=== PATIENT | male | born 1955 | race Caucasian/White ===

== ENCOUNTER 2020-05-29 06:37 | Outpatient (CLI) | payer MEDICARE, SELFPAY ==
--- NOTE | ~2020-05-29 | CT_ITS ---
EXAMINATION: CTA chest EXAM DATE: 05/29/2020 07:27 INDICATION: Ascending aortic aneurysm. TECHNIQUE: Spiral CT of the chest following intravenous injection of 100 mL Omnipaque 350. Axial, co randall and sagittal images were reviewed. Coronal maximum intensity pixel images of chest reviewed. M aximum intensity projection 3-D reconstructions of the aorta were created by the technologist on [employer] ([employer] workstation. The dose-length product (DLP) for this examination was 647.85 mGy-cm. The exposu re was tailored according to patient size (auto mA exposure control), and iterative reconstruction (A SIR) was used as additional dose reduction technique. There is no prior study for comparison. FINDINGS: The aortic root measures 4.1 cm dimension. The ascending aorta measures up to 4.6 cm in AP dimension. This caliber normalizes along the aortic arch. No central pulmonary emboli. There are some scattered ill-defined regions of groundglass density, mostly dependent regions. Could be atelectasis but differential diagnosis includes edema, infection (would be atypical distribution f or COVID 19) or hemorrhage if acute. It can also be caused by chronic processes such as hypersensiti vity pneumonitis, nonspecific interstitial pneumonitis (NSIP), cryptogenic organized pneumonia, desqu amative interstitial pneumonitis(DIP). There are no pleural or pericardial effusions. Tracheobronchial tree is patent. Right hilar lymph node or conglomerate of nodes measuring 1 x 2 cm, mildly enlarged. There is no pneumothorax. Hear t normal in size. There is mild coronary arterial calcification, arterial sclerosis. There are some upper abdominal mesenteric lymph nodes which are upper limits of normal in size, but m ildly enlarged for location. One of these measures 1.3 x 0.7 cm. Bon mesentery appearance as well. Surgical changes along the greater curvature of the stomach. There are cholecystectomy clips. There is thoracic spondylosis without osteoblastic or osteolytic lesions identified. IMPRESSION: 1. Scattered peripheral groundglass opacities, nonspecific pneumonitis. Can't exclude COVID pneumoni a. 2. Mild right hilar lymphadenopathy, could be reactive. 3. Prominent mesenteric lymph nodes and bon mesentery appearance. Could be reactive from mesenteri c adenitis. Carcinoid or lymphoma not excludable. These are incompletely imaged, consider CT abdomen pelvis. 4. Ascending aortic 4.6 cm aneurysm. Reviewed, dictated and finalized at location A. IMPRESSION: 1. Scattered peripheral groundglass opacities, nonspecific pneumonitis. Can't exclude COVID pneumonia. 2. Mild right hilar lymphadenopathy, could be reactive. 3. Prominent mesenteric lymph nodes and bon mesentery appearance. Could be r eactive from mesenteric adenitis. Carcinoid or lymphoma not excludable. These a re incompletely imaged, consider CT abdomen pelvis. 4. Ascending aortic 4.6 cm aneurysm.
[2020-05-29 07:33] LABS: Estimated Glomerular Filt Rate > 60
== END 2020-05-29 06:38 | disposition home or self-care (01) ==
PROVIDERS: PCP Family Medicine; Visit Provider Internal Medicine Cardiovascular Disease
DX: I77.810 Thoracic aortic ectasia (principal); I35.1 Nonrheumatic aortic (valve) insufficiency; R91.8 Other nonspecific abnormal finding of lung field
CPT/HCPCS: 71275; Q9967

== ENCOUNTER → 2020-05-30 08:19 | Outpatient (CLI) | payer MEDICARE, SELFPAY ==
[2020-05-30 17:14] LABS: SARS-CoV-2 RNA PCR Positive
== END ==
PROVIDERS: PCP Family Medicine; Visit Provider Physician Assistant
DX: Z20.822 Contact with and (suspected) exposure to COVID-19 (principal); R93.89 Abnormal findings on diagnostic imaging of other specified body structures
CPT/HCPCS: C9803; U0003; U0005

== ENCOUNTER 2020-07-12 14:53 | Outpatient (CLI) | payer MEDICARE, SELFPAY ==
--- NOTE | ~2020-07-12 | XR_ITS ---
XR chest 2V 07/12/2020 15:13 Indication: Wheezing and cough Procedure: 2 view chest Comparison: 06/12/2012 Findings: There is left basilar infiltrates. There is peribronchial thickening. No significant pleura l effusion or pneumothorax. No acute osseous abnormality. Impression: 1: Left basilar infiltrates, atelectasis versus pneumonia. Reviewed, dictated and finalized at location B. Impression: 1: Left basilar infiltrates, atelectasis versus pneumonia.
== END 2020-07-12 14:54 | disposition home or self-care (01) ==
PROVIDERS: PCP Family Medicine; Visit Provider Physician Assistant
DX: R05 Cough (principal); U07.1 COVID-19; J12.82 Pneumonia due to coronavirus disease 2019; R91.8 Other nonspecific abnormal finding of lung field
CPT/HCPCS: 71046

== ENCOUNTER → 2020-08-09 11:43 | Outpatient (CLI) | payer MEDICARE, SELFPAY ==
--- NOTE | ~2020-08-09 | CT_ITS ---
EXAMINATION: CT diagnostic chest wo con DATE: 08/09/2020 11:56 INDICATION: Previous pneumonia. Dyspnea. Hypoxia. TECHNIQUE: Computed tomography (CT) of the chest was performed without intravenous contrast. The dose -length product was 565.58 mGy-cm. Automated exposure control and iterative reconstruction technique were employed. COMPARISON: CT dated 05/29/2020 FINDINGS: Heart size normal. No significant pleural or pericardial effusion. There are changes of gas tric bypass surgery. No thoracic lymphadenopathy. There are residual focal groundglass opacities in t he right upper lobe. There has been resolution of additional areas of patchy groundglass opacificatio n since prior study. No endobronchial lesions. There is a calcified granuloma right upper lobe. Ascen ding thoracic aortic aneurysm measures 4.5 cm, unchanged allowing for differences of technique. IMPRESSION: 1. Residual groundglass opacification right upper lobe. An additional areas of groundglass opacificat ion have resolved. Findings Compatible with resolving pneumonia. 2: Stable ascending thoracic aortic aneurysm measuring 4.5 cm. Reviewed, dictated and finalized at location A. IMPRESSION: 1. Residual groundglass opacification right upper lobe. An additional areas of groundglass opacification have resolved. Findings Compatible with resolving pne umonia. 2: Stable ascending thoracic aortic aneurysm measuring 4.5 cm.
== END ==
PROVIDERS: PCP Family Medicine; Visit Provider Physician Assistant
DX: R09.02 Hypoxemia (principal); B94.8 Sequelae of other specified infectious and parasitic diseases; R91.8 Other nonspecific abnormal finding of lung field
CPT/HCPCS: 71250

== ENCOUNTER 2020-09-13 07:58 | Outpatient (CLI) | payer MEDICARE, SELFPAY ==
--- NOTE | 2020-09-13 12:11 | WPDPFTINT ---
PFT Procedure Performed PFT Procedure Performed Spirometry with Pre/Post Bronchodilator Plethysmography (Lung Vol) Flow Vol Loop PFT Interpretation This is a pulmonary function test with pre and post-bronchodilator spirometry and plethysmography. The test was performed and results interpreted in accordance with the 2019 and 2005 ATS/ERS Task Force guidelines respectively using the Global Lung Function Initiative-2012 reference equations. Patient demonstrated good effort and cooperation. Reproducibility criteria were met. The quality of the pre bronchodilator spirometry maneuver was Grade A and post bronchodilator spirometry maneuver was Grade A. Of note, despite for attempts the DLCO results were not reducible reproducible or acceptable. Findings: Spirometry: the contour the inspiratory and expiratory flow tracing are normal. The pre bronchodilator FVC is 3.73 L, 94% predicted. The pre bronchodilator FEV1 is 2.83 L, 93% predicted. The FEV1: FVC ratio is 76%. The post bronchodilator FVC is 3.87 L, representing a 4% increase. The post bronchodilator FEV1 is 2.99 L, representing a 6% increase. Plethysmography: The total lung capacity is 6.72 L, 105% predicted. Functional residual capacity is 2.40 L, 72% predicted. The residual volume is 2.27 L, 103% predicted. Impression: The spirometry is normal without evidence of an obstructive abnormality. There is no significant improvement after inhaling a single dose of albuterol. The lung volumes are normal. There are no prior studies for comparison
== END 2020-09-13 07:59 | disposition home or self-care (01) ==
LOC: ANHPFT 07:59
PROVIDERS: PCP Family Medicine; Visit Provider Nurse Practitioner Family
DX: R06.00 Dyspnea, unspecified (principal)
CPT/HCPCS: 94060; 94726

== ENCOUNTER → 2020-10-11 13:25 | Outpatient (CLI) | payer MEDICARE, SELFPAY ==
--- NOTE | ~2020-10-11 | US_ITS ---
EXAMINATION: US soft tissue UE LT EXAM DATE: 10/11/2020 13:51 INDICATION: Forearm lump for couple of months. Painful. TECHNIQUE: Multiple grayscale and Doppler images of the symptomatic left forearm region were obtained (by a technologist who performed the scan) and subsequently reviewed. There is no prior study for c omparison. FINDINGS: Scanning in the area of patient's concern demonstrated normal subcutaneous fat and musculature to the radius and ulna. Cannot identify any focal mass, fluid or other abnormality. IMPRESSION: 1. Unremarkable left forearm ultrasound. Reviewed, dictated and finalized at location B.
== END ==
PROVIDERS: PCP Family Medicine; Visit Provider Family Medicine
DX: M79.89 Other specified soft tissue disorders (principal)
CPT/HCPCS: 76882

== ENCOUNTER 2020-12-06 07:23 | Outpatient (CLI) | payer MEDICARE, SELFPAY ==
--- NOTE | ~2020-12-06 | MR_ITS ---
EXAMINATION: MR knee LT wo con DATE: 12/06/2020 08:22 INDICATION: Left knee pain. TECHNIQUE: Magnetic resonance imaging (MRI) of the left knee was performed without intravenous contra st. Sequences included axial PD-weighted FS FSE, coronal PD-weighted FSE and PD-weighted FS FSE, sagi ttal PD-weighted FSE, and sagittal T2-weighted FS FSE. COMPARISON: None. FINDINGS: Medial compartment: There is a vertical tear of posterior horn of medial meniscus. There is shallow partial-thickness car tilage loss of tibial condyle. There is extensive partial thickness cartilage loss of femoral condyle , deep at the central and posterior articular surface with moderate subchondral edema-like marrow sig nal intensity. Lateral compartment: Lateral meniscus is normal. There is cartilage surface irregularity of tibial condyle and femoral con dyle. Patellofemoral compartment: There is deep cartilage fissuring of patellar medial facet. There is deep partial thickness cartilage loss of medial trochlea. Ligaments and tendons: The anterior and posterior cruciate ligaments are normal. Medial collateral ligament and lateral cassandra ateral ligament complex are normal. There is mild patellar tendinopathy. Fluid: There is a small knee joint effusion. IMPRESSION: 1. Moderate chondrosis of medial and patellofemoral compartments and mild chondrosis of lateral charmaine rtment. 2. Tear of medial meniscus. 3. Small knee joint effusion. Reviewed, dictated and finalized at location A. IMPRESSION: 1. Moderate chondrosis of medial and patellofemoral compartments and mild chond rosis of lateral compartment. 2. Tear of medial meniscus. 3. Small knee joint effusion.
== END 2020-12-06 07:24 | disposition home or self-care (01) ==
LOC: ANHIMG 07:28
PROVIDERS: PCP Family Medicine; Visit Provider Family Medicine
DX: M25.462 Effusion, left knee (principal); S83.242A Other tear of medial meniscus, current injury, left knee, initial encounter; X58.XXXA Exposure to other specified factors, initial encounter
CPT/HCPCS: 73721

== ENCOUNTER 2020-12-07 01:40 | Day surgery (SDC) | payer MEDICARE, SELFPAY ==
[2020-12-06 15:55] VITALS: BMI 33.2
[2020-12-07] VITALS (10 sets, daily range): BP systolic 103–158; BP diastolic 65–82; PULSE 53–80; RESP 11–22; TEMP 35.9; O2SAT 98–100
--- NOTE | 2020-12-07 | ECHO_ITS ---
Patient Info Name: Romario Emerson Age: 65 years : 1955 Gender: Male Ht: 67 in Wt: 212 lbs BSA: 2.17 m2 HR: 84 bpm Heart Rhythm: Sinus Rhythm Exam Date: 12/07/2020 11:22 AM Exam Location: [facility] Patient Status: Outpatient Admit Date: 12/07/2020 Staff Ordering Physician: Ollie Hirsch MD [employer]add Technician: Flaco Rodas, PINKY, RT Attending Provider: Ollie Hirsch MD Referring Physician: Torrey RICKS; Exam Type: CA echo transesophageal Study Info Indications I35.1 - Nonrheumatic aortic (valve) insufficiency R06.00 - Dyspnea, unspecified Complete two-dimensional, color flow and Doppler transesophageal study is performed. Summary 1. Left ventricular chamber dimension is normal. 2. Visually estimated ejection fraction 50-55%. 3. Left atrial chamber dimension is mildly enlarged. 4. There is mild mitral valve regurgitation. 5. There is mild aortic valve regurgitation. 6. Mild jet of AI directed at the anterior mitral valve leaflet. 7. Very slight fibrotic thickening of the commissure between right coronary and non coronary cusp. 8. Ascending aortic dimension 4.1 cm. Left Ventricle Left ventricular chamber dimension is normal. Left ventricular systolic function is normal with an ejection fraction by Biplane Method of Discs of Empty. Visually estimated ejection fraction 50-55%. Right Ventricle Right ventricular chamber dimension is normal. Left Atria Left atrial chamber dimension is mildly enlarged. Right Atria Right atrial chamber dimension is normal. Aortic Valve The aortic valve is trileaflet. There is mild aortic valve regurgitation. Very slight fibrotic thickening of the commissure between right coronary and non coronary cusp. Mild jet of AI directed at the anterior mitral valve leaflet. Pulmonic Valve The pulmonic valve is normal. Mitral Valve The mitral valve has normal leaflets. There is mild mitral valve regurgitation. Tricuspid Valve The tricuspid valve leaflets are normal. Pericardium/Pleural The pericardium appears normal. Inferior Vena Cava Not well visualized inferior vena cava with Empty collapse upon inspiration consistent with Empty right atrial pressure, Empty. Aorta The aortic root size at the sinus of Valsalva is mildly dilated. The prox ascending aorta size is mildly dilated. Report Signatures
--- NOTE | 2020-12-07 12:22 | P.SEDATION_ITS ---
Moderate Sedation Note-Pt Data Patient Data Diagnosis: Aortic valve regurgitation, ascending aortic enlargement Present Complaint: Fatigue Procedure to be performed/Plan: Transesophageal echocardiogram Allergies Allergy/AdvReac Type Severity Reaction Status Date / Time Penicillins Allergy Mild Rash Verified 12/06/20 16:01 ampicillin Allergy Unknown RASH Verified 12/06/20 16:01 Home Medications Medication Instructions Recorded Confirmed Type losartan 50 mg-hydrochlorothiazide 1 tablet PO DAILY #90 tablet 10/23/20 12/07/20 Rx 12.5 mg tablet metoprolol tartrate 25 mg tablet 12.5 mg PO BID 11/30/20 12/07/20 History atorvastatin 10 mg PO DAILY 12/06/20 12/07/20 History benzonatate [Tessalon Perles] 100 mg PO BID PRN 12/06/20 12/06/20 History ipratropium-albuterol [DuoNeb] 1 ml INHALATION Q6-12H PRN 12/06/20 12/06/20 History Sedation/Anesthesia: No previous sedation/anesthesia problems (including family history). [facility] Past Medical History Medical History Dilated aortic root Eczema Surgical History Surgical History H/O resection of stomach History of rotator cuff surgery Hx of appendectomy Hx of cholecystectomy S/P excision of lipoma S/P lateral meniscal repair Family History Family History Mother , Glaucoma before diagnosed before passing. Glaucoma Other Family history of cardiovascular disease Social History Social History (Updated 11/30/20 @ 07:47 by Payal Pelaez) Social History: Smoking status: Never smoker Second hand tobacco smoke exposure: No Alcohol intake: never Substance use: never Substance use type: does not use Living arrangements: with family Gender identity (if verbalized by the patient): Male Sexual Orientation (if Verbalized by the Patient): Straight or Heterosexual Spiritual care concerns: No Mod Sed Physical Exam Physical Exam Pre Procedural Exam: Normal: Neck, Throat, Airway, Lungs, Heart Size, Heart Rate, Heart Rhythm and Extremities and Variation: Appearance (Overweight white male no apparent distress) Hours since solid foods: 12 Hours since liquid intake: 12 Mallampati Classification: class II Internal Medicine - PN: Obj Da Vital Signs Vital Signs: Vital Signs - 24 hr 12/07/20 11:20 12/07/20 12:00 12/07/20 12:05 Temperature 35.9 C L Pulse Rate 53 L 54 L 56 L Respiratory Rate 16 20 11 L Blood Pressure 121/71 129/75 148/77 H Pulse Oximetry 100 100 100 12/07/20 12:10 12/07/20 12:15 12/07/20 12:20 Temperature Pulse Rate 80 60 60 Respiratory Rate 18 13 15 Blood Pressure 158/79 H 126/67 Pulse Oximetry 100 100 99 ASA Classification/Sedation ASA Classification/Sedation ASA Class: II Emergent: No Risks: Risks, benefits and alternatives explained and patient/family accepted plan for sedation. Patient re-evaluated immediately prior to sedation.
--- NOTE | 2020-12-07 12:23 | WPDCARDPROC ---
Cardiac Cath Procedure Note Date of procedure:: 12/07/20 Performing physician:: Ayush Fonseca MD Indication:: Aortic root enlargement, aortic regurgitation Brief clinical history:: This is a 65-year-old man undergoing CRISTIANO he has been followed in the office by my partner Dr. Hirsch and because of recent symptoms has requested CRISTIANO to ensure the severity of his aortic regurgitation has not increased Procedure Procedure performed:: Transesophageal echocardiogram Sedation/Medication given:: Fentanyl 50 mg Versed 4 mg Case start time 12:03 p.m. Case end time 12:15 p.m. Sedation provided by Lindy Shen RN, trained observer Procedure note:: Patient was brought to the cardiac lab animal technician recovery area in the postabsorptive state placed in the supine position. Or pharyngeal benzocaine was used for topical anesthesia. The bite block was placed in position he was then sedated he using a combination of fentanyl and Versed as detailed above. When the patient was well sedated the CRISTIANO probe was passed into the oropharynx and into the esophagus easily. Multiplane CRISTIANO imaging and Doppler evaluation was carried out as described below the patient then had examination of the descending thoracic aorta aortic arch and ascending aortic measurements. The probe was then withdrawn the patient is recovering from sedation uneventfully there were no apparent complications. Findings:: The left atrium is mildly enlarged. The mitral valve leaflets are normal in appearance. There is a very small amount of central mitral valve regurgitation identified. The left ventricle is of normal dimension and thickness all segments contract properly the global ejection fraction is in the vicinity of 55-60% by visual estimation. The aortic valve is a trileaflet structure with normal appearing leaflets. There is a small jet of aortic regurgitation which appears to arise from the center of the point of coaptation of all 3 leaflets. A narrow jet of AI that appears to be quite mild. In the LVOT it is somewhat eccentric and directed toward the anterior mitral valve leaflet. In no view however does the jet appeared to be more than mild. The ascending aorta is mildly enlarged measured at 4.1 cm. The aortic arch and descending thoracic aorta are normal in dimension. The right-sided chambers are unremarkable in appearance the interatrial septum looks normal. The tricuspid and pulmonic valves look normal. Conclusion:: 1. Anatomically normal appearing aortic valve with mild central aortic valve regurgitation 2. Normal left ventricular size thickness and contractility 3. Trivial to mild mitral regurgitation 4. Ascending aortic dilation at 4.1 cm Ayush Fonseca MD [facility]
--- NOTE | 2020-12-07 14:06 | SUR.PHASEII ---
All discharge instructions reviewed with patient. Patient verbalizes understanding. PIV removed, catheter intact, dressing applied. Patient escorted to vehicle with staff, where he was picked up by his .
== END 2020-12-07 13:50 | disposition home or self-care (01) ==
PROVIDERS: Specialist; PCP Family Medicine; Visit Provider Internal Medicine Cardiovascular Disease
PROC: (CPT 93312; principal; 2020-12-07 11:30)
DX: I35.1 Nonrheumatic aortic (valve) insufficiency (principal); I77.810 Thoracic aortic ectasia; I34.0 Nonrheumatic mitral (valve) insufficiency; R42 Dizziness and giddiness; I10 Essential (primary) hypertension; E78.5 Hyperlipidemia, unspecified; Z98.84 Bariatric surgery status; R06.00 Dyspnea, unspecified; R05 Cough; R60.0 Localized edema; R07.89 Other chest pain; L30.9 Dermatitis, unspecified; Z86.16 Personal history of COVID-19
CPT/HCPCS: 93312; 93320; 93325; J2250; J3010; J7040

== ENCOUNTER → 2021-04-09 08:33 | Outpatient (CLI) | payer MEDICARE, SELFPAY ==
[2021-04-09 19:08] LABS: SARS-CoV-2 RNA PCR Negative
== END ==
PROVIDERS: PCP Family Medicine; Visit Provider Nurse Practitioner Gerontology
DX: R68.89 Other general symptoms and signs (principal); Z20.822 Contact with and (suspected) exposure to COVID-19
CPT/HCPCS: C9803; U0003; U0005

== ENCOUNTER 2021-04-16 08:54 | Outpatient (CLI) | payer MEDICARE, SELFPAY ==
[2021-04-16 10:02] LABS: Basophils Absolute Auto 0.1 K/mm3 (0.0-0.1); Basophils Percent Auto 1.1 % (0.2-1.2); Eosinophils Absolute Auto 0.7 K/mm3 (0-0.3); Immature Granulocyte Absolute 0.03 K/mm3 (0.00-0.031); Immature Granulocyte Percent A 0.5 % (0-0.5); Lymphocytes Absolute Auto 1.59 K/mm3 (0.9-3.2); Lymphocytes Percent Auto 24.4 % (18.3-44.2); Mean Corpuscular HGB Conc 35.6 g/dl (32-36); Mean Corpuscular Hemoglobin 32.6 pg (26-34); Mean Corpuscular Volume 91.6 fl (80-100); Mean Platelet Volume 8.1 fl (7.4-10.4); Monocytes Absolute Auto 0.8 K/mm3 (0.1-0.6); Monocytes Percent Auto 12.4 % (2.6-8.5); Neutrophils Absolute Auto 3.3 K/mm3 (1.3-6.7); Neutrophils Percent Auto 50.6 % (45.5-73.1); Platelet Count Result 230 k/mm3 (150-375); Red Blood Count 4.91 M/mm3 (4.6-6.20); Red Cell Distribution Width 12.9 % (11.5-14.5); White Blood Count 6.5 K/mm3 (4.5-10.0)
[2021-04-16 10:13] LABS: Anion Gap 5 mmol/L (8-16); Blood Urea Nitrogen 23 mg/dL (9-20); Calcium 9.4 mg/dL (8.4-10.2); Carbon Dioxide 30 mmol/L (22-30); Chloride 104 mmol/L (98-107); Estimated Glomerular Filt Rate > 60; Glucose 100 mg/dL (65-110); Potassium 4.2 mmol/L (3.4-5.0); Sodium 139 mmol/L (137-145)
== END 2021-04-16 08:55 | disposition home or self-care (01) ==
LOC: ANHSURGERY 08:58
PROVIDERS: Anesthesiology; PCP Family Medicine; Visit Provider Orthopaedic Surgery
DX: M17.12 Unilateral primary osteoarthritis, left knee (principal); Z79.899 Other long term (current) drug therapy; Z01.818 Encounter for other preprocedural examination
CPT/HCPCS: 36415; 80048; 85025; 86850; 86900; 86901; 87081

== ENCOUNTER 2021-04-29 01:51 | Day surgery (SDC) | payer MEDICARE, SELFPAY ==
--- NOTE | 2021-04-16 09:02 | PC.NURSE ---
Report to the Outpatient Waiting Room, entrance under the green pavilion located off [facility], at time _0830_ on date _04/29/21_. OR Time: _1030_. - You will be asked a series of questions to screen for COVID 19 for your protection. - A mask is required within the hospital. - No visitors are allowed at this time. Preoperative COVID Testing Requirements: NONE Patients may have clear liquids (water, carbonated beverages, clear teas, apple juice) until 3 hours prior to surgery with a maximum of 20 ounces. (0730 AM) - No food from midnight until time of surgery Take the following medications with a SIP of water the morning of surgery: _METOPROLOL__ Medications to discontinue per physician __N/A__ Please no make-up, nail syriac, hairspray, perfume, deodorant, or body powder the day of surgery. No jewelry (including any body piercings) or valuables the day of surgery, leave them at home. Please take a shower or bath the night before, or the morning of, surgery with an antibacterial soap. Wear comfortable, loose fitting clothing. Children are encouraged to wear pajamas. - Jewelry must be removed prior to entering the operating room. Rings and piercings that are not removed may be cut off. - The hospital will not accept responsibility for valuables. - Please leave all valuables, including medications, at home the day of surgery. If you are going home after surgery, a licensed recycling collections driver must drive you home. - NO public transportation without another adult. - We recommend that an adult stay with you for 24 hours following discharge. - We also recommend that you do not drive, make important decision, drink alcoholic beverages, or take any drugs that were not prescribed by your health care provider for at least 24 hours after your discharge time. Follow any additional instructions given to you from DR. VAZQUEZ. Instructions given to ____PT and asked if any additional questions and then verbalized understanding. Patient advised to call surgeon office or pre surgery nurse liaisonGINNY [phone] if any additional questions.
[2021-04-16 09:23] VITALS: BP 132/74; PULSE 66; RESP 20; TEMP 37.6; O2SAT 99; BMI 34.9
[2021-04-29] VITALS (17 sets, daily range): BP systolic 106–164; BP diastolic 55–91; PULSE 79–108; RESP 10–20; TEMP 36.3–37.8; O2SAT 92–100; BMI 34.1
--- NOTE | ~2021-04-29 | XR_ITS ---
EXAMINATION: XR knee LT 2V DATE: 04/29/2021 10:09 INDICATION: Left knee arthroplasty. Postop. TECHNIQUE: 2 views of left knee were obtained. COMPARISON: Left knee radiographs 02/06/2021 FINDINGS: There is a medial compartment arthroplasty in near-anatomic alignment. No fracture. There a re tiny osteophytes in the lateral and patellofemoral compartments. There is gas in the knee joint an d soft tissues, consistent with recent surgery. IMPRESSION: 1. Medial compartment arthroplasty in near-anatomic alignment. Reviewed, dictated and finalized at location A. [facility] [employer]
[2021-04-29] MEDS: ACETAMINOPHEN 500 MG TABLET 1000 MG PO ×3 (06:26→21:32)
[2021-04-29] MEDS: TRANEXAMIC ACID 1,000MG/ISO100 1,000 MG/100 ML BAG 200 MG IVPB (06:30)
[2021-04-29] MEDS: LACTATED RINGERS 1,000 ML 30 ML IV CONT ×2 (06:30→09:57)
--- NOTE | 2021-04-29 07:05 | WPDANESEPPF ---
Anes - Initial Pre Proc Eval Procedure: Operation Date: 04/29/21 07:30 Proposed Procedures p Left Knee Unicompartmental Arthroplasty - Ricci Paul MD Date/Time: 04/29/21 07:05 Surgeon: Ricci Paul MD Pre Op Diagnosis: OA Left Knee Patient Data Age: 65 Gender: M Height: 1.7 m Weight: 101.2 kg Last Vital Signs Temp 37.6 C 04/16/21 09:23 Pulse 66 04/16/21 09:23 Resp 20 04/16/21 09:23 BP 132/74 04/16/21 09:23 Pulse Ox 99 04/16/21 09:23 Allergies Allergy/AdvReac Type Severity Reaction Status Date / Time Penicillins Allergy Mild Rash Verified 04/24/21 13:00 ampicillin Allergy Unknown RASH Verified 04/24/21 13:00 Home Medications Medication Instructions Recorded Confirmed Type metoprolol tartrate 25 mg tablet 12.5 mg PO BID 11/30/20 04/23/21 History atorvastatin 10 mg PO HS 04/16/21 04/23/21 History losartan-hydrochlorothiazide 1 tablet PO QAM 04/16/21 04/23/21 History omeprazole 20 mg PO QAM 04/16/21 04/23/21 History azithromycin 500 mg tablet 500 mg PO DAILY #1 tablet 04/24/21 Rx rivaroxaban 10 mg tablet 10 mg PO DAILY #14 tablet 04/24/21 Rx Patient hx anesthesia problems: none Family hx anesthesia problems: none Results Review: All pre-operative results and documents have been reviewed as part of the pre-operative evaluation. [facility] Past Medical History Medical History Aortic valve regurgitation Dilated aortic root Eczema Osteoarthritis of left knee Pneumonia due to COVID-19 virus Surgical History Surgical History Bariatric surgery status History of arthroscopy of left knee medial meniscectomy History of rotator cuff surgery Hx of appendectomy Hx of cholecystectomy S/P excision of lipoma Family History Family History Mother , Glaucoma before diagnosed before passing. Glaucoma Other Family history of cardiovascular disease Social History Social History Social History: Smoking status: Never smoker Second hand tobacco smoke exposure: No Additional smoking assessment comments: PT DENIES ALL FORMS OF TOBACCO USE Alcohol intake: never Substance use: never Substance use type: does not use Living arrangements: with family Gender identity (if verbalized by the patient): Male Sexual Orientation (if Verbalized by the Patient): Straight or Heterosexual Spiritual care concerns: No Anes - Eval Final PreProcedure Day of Procedure 04/29/21 07:05 Patient weight: obese Heart: regular rate and rhythm Lungs: clear to auscultation and normal air movement Airway: Mallampati scale class II Neurological: alert and oriented Last oral intake: >/= 8 hours ASA classification: III Emergent: no Anesthetic plan: proceed Anesthesia type and monitoring: general LMA Results Review: All pre-operative results and documents have been reviewed as part of the pre-operative evaluation. Informed Consent: The patient's anesthetic plan and its attendant risks and benefits were discussed with the patient/family/POA. Questions were solicited and answers provided to the satisfaction of the patient/family/POA.
--- NOTE | 2021-04-29 07:15 | WPDHPUPDATE1 ---
History and Physical Update Update Date/Time: 04/29/21 07:15 History and Physical has been reviewed, including an updated exam of the patient. There are NO changes in the patient's condition. Risks, benefits, and alternatives have been discussed and questions answered. Patient agrees to proceed with procedure.
--- NOTE | 2021-04-29 07:34 | WPDANESPNB ---
Anes - Peripheral Nerve Block Date/Time: 04/29/21 07:34 I have discussed with the patient/family/POA the placement of a peripheral nerve block for post-operative pain management, including associated risks, benefits, complications, and side effects. Alternative methods of post-operative analgesia were detailed. Questions were solicited and answers provided to the satisfaction of the patient/family/POA. Time-Out: A pre-procedural Time-Out was completed immediately before starting the procedure and confirmed: Patient Identification, Site, Procedure, Patient Position and the Availability of Requisite Equipment. Clinical Indications: Acute post-operative pain management requested by the operative surgeon. Nerve Block Insertion Note Anes-nerve block: adductor canal left Patient position: supine Skin prep: chlorhexidine Needle: 22 gauge, stimulating, insulated echogenic needle. Needle length: 80 mm Technique: ultrasound Technique comment: in plane Injectate: bupivacaine 0.5% with epi 5 mcg/ml (30cc) Observations: tolerated well Complications: none Procedure start time:: 725 Procedure end time:: 730
[2021-04-29] MEDS: ceFAZolin 2 GM/D5W 50 ML 2 GM/50 ML BAG IVPB ×3 (07:35→23:55)
--- NOTE | 2021-04-29 09:58 | P.OP_ITS ---
Procedure Note - Detailed Date of Procedure 04/29/21 Pre-op Diagnosis OA Left Knee Post-op Diagnosis same Procedure Performed Left knee unicompartmental replacement Surgeon Ricci Paul MD Rubber Tile Floor Layer Lindy Grimaldo Anesthesia general and regional Description of Procedure The patient was identified and the proper site identified. In the preop holding area the anesthesia team performed a left lower extremity block. She was then taken to the operating room and transferred to the OR table placing her supine taking care to pad his torso and extremities. After general anesthetic induction and intubation. a nonsterile tourniquet was placed high on the left thigh. The extremity was positioned, prepped, and draped in the usual sterile fashion. The extremity was exsanguinated and the tourniquet was inflated to 300 mmHg remaining up for approximately before minutes. An anterior midline incision was made and sharp dissection carried down through the subcutaneous tissue to the extensor mechanism. A modified medial parapatellar arthrotomy was performed. The articular and meniscal cartilage of the lateral compartment was inspected and noted to be in excellent shape. Anterior and posterior cruciate ligaments were in continuity. There were extensive degenerative changes medial compartment and milder patellofemoral changes. The marginal osteophytes were removed from the notch and the medial aspect of the medial femoral condyle, and the remaining meniscal tissue was removed. The femur was sized to a medial. With the appropriate spoon and tibial guide, a tibial resection was made. This was sized to an A. Using the mill, the flexion and extension gaps were balanced. A trial reduction was undertaken. The range of motion of the knee was noted to be from full extension to 120 ? of flexion with excellent stability through range of motion. The polyethylene insert tr acked nicely. The trial components were removed. The real medial femur and size A tray for the left knee were cemented into place. The knee was held in about 30? of flexion while the cement cured. The tourniquet was released and excess cement was removed from the joint. Hemostasis was carried out. The knee was flushed with a copious amount of irrigation. After trialing, the appropriate real size 4 insert for the femoral component was inserted and the stability again assessed. The knee was noted to be stable as it was taken through range of motion. The periarticular tissues were injected with 60 milliliters of the arthroplasty solution after a 3 minutes Betadine bath wound. Surgicel powder was used both deep and superficial to the extensor mechanism. The extensor mechanism was repaired with 0 looped PDS suture, the subcu with 2-0 Quill and tissue adhesive for the skin. A sterile dressing was applied. The patient tolerated the procedure well, was awakened, extubated, and taken to recovery room in stable condition. Estimated Blood Loss 100 Tourniquet Time 54 Drains No Packing No Pathology none sent Complications No immediate complications Condition stable Disposition PACU
[2021-04-29] MEDS: fentaNYL CITRATE INJ (*CRX) 100 MCG/2 ML VIAL 25 MCG IV PUSH ×4 (10:15→10:58)
--- NOTE | 2021-04-29 10:38 | SUR.PHASEI ---
Simple mask removed. 2L NC applied since patient has ARI.
[2021-04-29] MEDS: KETOROLAC 15 MG/ML VIAL (*BKC) IV PUSH ×3 (12:22→23:56)
[2021-04-29] MEDS: oxyCODONE HCL (*CRX) 5 MG TAB IR PO ×3 (12:23→21:32)
--- NOTE | 2021-04-29 13:19 | PC.NURSE ---
This patient, Romario Emerson, was admitted to [facility]. Patient/family oriented to hospital policies and general routines including ID bracelet, bed and alarms, visiting hours, pain management, procedures, bathroom and other care routines, personal items, smoking policy, room service/diet, and visiting hours. Information on how to activate the Rapid Response Team has been discussed. Patient/Family are encouraged to report perceived risks to care and to ask questions if they do not understand what they are told or what they should do.
[2021-04-29] MEDS: SENNA/DOCUSATE SODIUM TABLET 2 TAB PO (16:56)
[2021-04-29] MEDS: METOPROLOL TARTRATE 12.5 MG TABLET PO (18:07)
[2021-04-29] MEDS: ATORVASTATIN 10 MG TABLET PO (21:32)
[2021-04-30] VITALS (8 sets, daily range): BP systolic 105–130; BP diastolic 55–65; PULSE 70–88; RESP 18; TEMP 37.1–37.9; O2SAT 97–98
[2021-04-30] MEDS: oxyCODONE HCL (*CRX) 5 MG TAB IR PO ×3 (00:32→08:28)
[2021-04-30] MEDS: ACETAMINOPHEN 500 MG TABLET 1000 MG PO (05:47)
[2021-04-30] MEDS: KETOROLAC 15 MG/ML VIAL (*BKC) IV PUSH (05:47)
--- NOTE | 2021-04-30 07:25 | PM.DS ---
DS: Admitting Diagnosis Discharge Date April 30, 2021 Admitting Diagnosis Left knee osteoarthritis DS: Discharge Diagnosis Discharge Diagnosis (1) History of arthroplasty of left knee: Code(s): Z96.652 - Presence of left artificial knee joint Status: Acute Assessment and Plan: 65-year-old male postop day 1 after partial knee replacement per Dr. Paul. Overall doing well and was able to tolerate therapy yesterday. He will be seen by therapy again today and will follow up in our office in 2 weeks for wound check. DS: Summary Hospital Course Reason for hospitalization: Observation after outpatient procedure Hospital Course: 65-year-old male who underwent left partial knee replacement on April 29, 2021. He was admitted for observation. Therapy with was tolerated yesterday without difficulty and expect the same today. He will leave the dressing on the surgical incision for 1 more day and then he can take it off and get in the shower. Expect discharge home today. Follow up in our office in 2 weeks. Status at Discharge Functional status at discharge: uses cane/walker Overall status at discharge: patient is progressing back to baseline Time Spent with Patient Time attestation: Total time spent providing and/or coordinating discharge services: Time spent: Less than 30 minutes Exam Const: General: comfortable and no acute distress HENMT: Mouth: Yes moist mucous membranes Eyes: General: appearance normal, both eyes and all related structures Resp: Effort & Inspection: normal respiratory effort GI: Inspection: non-distended GI Palp: No Tenderness to palpation present (GI) Neuro: Motor exam (neuro): Normal motor muscle tone present throughout Sensory Exam: normal sensation Extrem: Other: Exam of the left knee shows a clean and dry surgical dressing. He is able to wiggle his toes and denies any tingling below the knee. Mild swelling to the knee that is consistent with recent surgical procedure. Psych: Mental Status: mental status grossly normal Discharge Plan Discharge Patient Disposition: Home, Self-Care Discharge Instructions: 3 times daily for 20 minutes each time, reclining in bed with ice packs over the incision and a pillow underneath the calf of the affected leg, not under the knee. Your wound is glued so it is okay to get into the shower and get the wound wet in two days. Be sure to read through all the information that came from a my office and the hospital. Most of the answers you will need can be found that material. Call the office with any questions that you cannot find answers to, or concerns you may have. After the Xarelto is completed, start taking one coated 325 mg aspirin daily and do this for four more weeks. Please call [facility] at as soon as possible to verify your follow-up appointment to be seen in 2 weeks. Also, call the office with any orthopedic/surgical related questions prior to follow-up. Be sure to get up and move around several times daily but do not overdo it. Take the arthritis formula Tylenol 650 mg tablet on an 8 hour schedule. A good 8 hour schedule is: 6:00 a.m., 2:00 p.m., 10:00 p.m. you may take the prescribed pain medication along with the Tylenol; it is not to be taken instead of the Tylenol. I would like for you to take the Tylenol on a schedule for 2-3 weeks. Use the laxative Senekot S twice daily for 2 weeks after discharge while taking the prescription pain medication. Use Miralax once daily for 2 weeks after discharge while taking the prescription pain medication. Once the Xarelto is completed, if you wish to supplement your pain regimen with votc-wbu-xjiqebh anti-inflammatory such as Advil or Aleve, that is fine. Follow the label instructions. Do not take this medicine if you have an allergy to NSAIDs. You will be using a walker for six weeks putting only half of your weight on the left leg. This is non-negotiable. After six weeks,
[2021-04-30] MEDS: SENNA/DOCUSATE SODIUM TABLET 2 TAB PO (08:26)
[2021-04-30] MEDS: ceFAZolin 2 GM/D5W 50 ML 2 GM/50 ML BAG IVPB (08:26)
[2021-04-30] MEDS: LOSARTAN POTASSIUM 50 MG TABLET PO (08:27)
[2021-04-30] MEDS: hydroCHLOROthiazide 12.5 MG CAPSULE PO (08:27)
[2021-04-30] MEDS: RIVAROXABAN 10 MG TABLET PO (08:28)
[2021-04-30] MEDS: polyethylene glycoL 3350 17 GM POWD.PACK PO (08:28)
[2021-04-30] MEDS: METOPROLOL TARTRATE 12.5 MG TABLET PO (09:25)
[2021-04-30] MEDS: PANTOPRAZOLE 40 MG TABLET PO (09:25)
--- NOTE | 2021-04-30 09:55 | PC.NURSE ---
0720: DILMA CRUZ HERE SEEING PT, AWARE OF LOW GRADE 99/100 TEMP, ORDERS RECEIVED TO PROCEED WITH DISCHARGE, PT STATES UNDERSTANDING.
--- NOTE | 2021-04-30 09:59 | WPDANESPN ---
Anes - Prog Note Post-Op Date/Time: 04/30/21 09:59 Cardiovascular status: normal Respiratory status: normal Airway patency: baseline Mental status: baseline Post-Op hydration status: normal Vital Signs: Last Vital Signs Temp 37.6 C H 04/30/21 07:28 Pulse 80 04/30/21 09:25 Resp 18 04/30/21 07:28 BP 116/55 L 04/30/21 07:28 Pulse Ox 98 04/30/21 07:28 Pain Score (VAS): 0 I/O: Intake & Output 04/29/21 04/30/21 04/30/21 23:59 07:59 15:59 Intake Total 350 550 200 Output Total 200 Balance 350 350 200 Post-procedural complaints: none Patient Feedback: Patient satisfied with anesthetic care.
== END 2021-04-30 10:17 | disposition home or self-care (01) ==
LOC: ANHSURGERY 09:45 → ANHSUROVER 12:01
PROVIDERS: PCP Family Medicine; Visit Provider Orthopaedic Surgery
PROC: (CPT 27446; principal; 2021-04-29 07:30)
DX: M17.12 Unilateral primary osteoarthritis, left knee (principal); Z79.01 Long term (current) use of anticoagulants; I35.1 Nonrheumatic aortic (valve) insufficiency; L30.9 Dermatitis, unspecified; Z86.16 Personal history of COVID-19; Z90.49 Acquired absence of other specified parts of digestive tract; E66.9 Obesity, unspecified; Z68.34 Body mass index [BMI] 34.0-34.9, adult; G89.18 Other acute postprocedural pain
CPT/HCPCS: 64447; 27446; 36415; 73560; 80048; 85025; 86850; 86900; 86901; 87081; 97110; 97116; 97161; 97165; 97535; A9270; C1713; C1776; J0171; J0690; J1100; J1170; J1885; J2250; J2270; J2405; J2704; J2795; J3010; J7120

== ENCOUNTER 2021-07-05 13:36 | Outpatient (CLI) | payer MEDICARE, SELFPAY ==
--- NOTE | ~2021-07-05 | CT_ITS ---
EXAMINATION: CTA chest abdomen DATE: 07/05/2021 14:23 INDICATION: Rheumatic aortic valve insufficiency TECHNIQUE: Computed tomographic angiography (CTA) of the chest and abdomen was performed with 100 mL Omnipque-350 intravenous contrast. Maximum intensity projection 3D-reconstructions of the aorta and o ther arteries were constructed by the technologist on a separate workstation. The dose-length product (DLP) was 838.82 mGy-cm. Automated exposure control and iterative reconstruction technique were empl oyed. COMPARISON: 08/09/2020 FINDINGS: CHEST CTA: There is fusiform dilation of the ascending aorta which measures up to 4.4 x 4.3 cm at the level of t he main pulmonary artery. The descending thoracic aorta is normal in caliber. There is no dissection. There is mild atelectasis of the lung bases. No pleural effusion or pneumothorax is identified. Ther e is mild, persistent right hilar lymphadenopathy without significant change. The heart size is willem l. There is mild thoracic spondylosis. ABDOMEN CTA: There is no aneurysm or dissection of the abdominal aorta. The celiac axis, superior mesenteric arter y, and inferior mesenteric artery appear normal. Single renal arteries are present bilaterally. The g allbladder is surgically absent. The liver, spleen, pancreas, and adrenal glands are normal. The kidn eys are unremarkable. There is chronic stranding of the small bowel mesentery with prominent mesenter ic lymph nodes. There is no free intraperitoneal gas or evidence of bowel obstruction. IMPRESSION: 1. Stable fusiform dilatation of the ascending aorta without aneurysm or dissection. 2. No aneurysm or dissection of the abdominal aorta. 3. Chronic mild right hilar lymphadenopathy, likely reactive. 4. Chronic unchanged bon small bowel mesentery with prominent mesenteric lymph nodes, likely mesent lali adenitis. Reviewed, dictated and finalized at location F. IMPRESSION: 1. Stable fusiform dilatation of the ascending aorta without aneurysm or dissec tion. 2. No aneurysm or dissection of the abdominal aorta. 3. Chronic mild right hilar lymphadenopathy, likely reactive. 4. Chronic unchanged bon small bowel mesentery with prominent mesenteric lymp h nodes, likely mesenteric adenitis.
[2021-07-05 14:19] LABS: Estimated Glomerular Filt Rate > 60
== END 2021-07-05 13:37 | disposition home or self-care (01) ==
PROVIDERS: PCP Family Medicine; Visit Provider Internal Medicine Cardiovascular Disease
DX: I35.1 Nonrheumatic aortic (valve) insufficiency (principal); I10 Essential (primary) hypertension; I71.2 Thoracic aortic aneurysm, without rupture
CPT/HCPCS: 71275; 74175; Q9967

== ENCOUNTER 2021-09-10 12:52 | Day surgery (SDC) | payer MEDICARE, SELFPAY ==
[2021-09-03 13:00] VITALS: BMI 32.6
[2021-09-10 13:20] VITALS: BP 119/68; PULSE 56; RESP 18; TEMP 36.8; O2SAT 99
[2021-09-10] MEDS: LACTATED RINGERS 1,000 ML 150 ML IV CONT (13:30)
[2021-09-10 13:43] VITALS: BMI 32.8
--- NOTE | 2021-09-10 13:51 | WPDANESEPPF ---
Anes - Initial Pre Proc Eval Procedure: Operation Date: 09/10/21 14:30 Proposed Procedures p Screening Colonoscopy - Ignacio Hilton MD Date/Time: 09/10/21 13:51 Surgeon: Ignacio Hilton MD Pre Op Diagnosis: History of Colon Polyps Patient Data Age: 65 Gender: M Height: 1.7 m Weight: 95 kg Last Vital Signs Temp 36.8 C 09/10/21 13:20 Pulse 56 L 09/10/21 13:20 Resp 18 09/10/21 13:20 BP 119/68 09/10/21 13:20 Pulse Ox 99 09/10/21 13:20 O2 Del Method Room Air 09/10/21 13:20 Allergies Allergy/AdvReac Type Severity Reaction Status Date / Time ampicillin Allergy Mild RASH Verified 09/10/21 13:36 Penicillins Allergy Mild Rash Verified 09/10/21 13:36 Home Medications Medication Instructions Recorded Confirmed Type metoprolol tartrate 25 mg tablet 12.5 mg PO BID 11/30/20 09/10/21 History losartan 50 mg-hydrochlorothiazide 1 tablet PO QAM 04/16/21 09/10/21 History 12.5 mg tablet omeprazole 20 mg capsule,delayed 20 mg PO QAM 04/16/21 09/10/21 History release sodium sul 1.479 gram-potas ch See Rx Instructions PO PER PKG DIR 09/02/21 09/10/21 Rx 0.188 gram-magnes sul 0.225 gram #24 tabs tablet (Sutab) atorvastatin 10 mg tablet 10 mg PO DAILY 09/03/21 09/10/21 History Patient hx anesthesia problems: none Family hx anesthesia problems: none Results Review: All pre-operative results and documents have been reviewed as part of the pre-operative evaluation. [facility] Past Medical History Medical History Aortic valve regurgitation Benign essential HTN Dilated aortic root Eczema Hyperlipidemia ARI on CPAP Osteoarthritis of left knee Pneumonia due to COVID-19 virus Thoracic aortic aneurysm (TAA) Surgical History Surgical History Bariatric surgery status History of arthroscopy of left knee medial meniscectomy History of rotator cuff surgery Hx of appendectomy Hx of cholecystectomy S/P excision of lipoma Family History Family History Mother , Glaucoma before diagnosed before passing. Glaucoma Father Family history of cardiovascular disease Grandparent Family history of cardiovascular disease Grandparent Breast cancer Social History Social History Social History: Smoking status: Never smoker Second hand tobacco smoke exposure: No Additional smoking assessment comments: PT DENIES ALL FORMS OF TOBACCO USE Alcohol intake: never Substance use: never Substance use type: does not use Living arrangements: with family Gender identity (if verbalized by the patient): Male Sexual Orientation (if Verbalized by the Patient): Straight or Heterosexual Spiritual care concerns: No Anes - Eval Final PreProcedure Day of Procedure 09/10/21 13:51 Patient weight: obese Heart: regular rate and rhythm Lungs: clear to auscultation Airway: Mallampati scale class II Neurological: alert and oriented Last oral intake: >/= 8 hours ASA classification: III Emergent: no Anesthetic plan: proceed Anesthesia type and monitoring: general GIVS and standard monitoring Results Review: All pre-operative results and documents have been reviewed as part of the pre-operative evaluation. Informed Consent: The patient's anesthetic plan and its attendant risks and benefits were discussed with the patient/family/POA. Questions were solicited and answers provided to the satisfaction of the patient/family/POA.
--- NOTE | 2021-09-10 14:04 | PM.HPGS ---
History of Present Illness History of Present Illness Consent: Risks, benefits, and alternatives have been discussed and questions answered. Patient agrees to proceed with procedure. Chief complaint: History of Colon Polyps Narrative: Romario Emerson is a 65 year old male with colon polyp 5 years ago Review of Systems Constitutional: Constitutional: Denies headache(s) and Denies weakness Eyes: Eyes: Denies blurry vision ENT: Reports Normal hearing present, Denies headache(s) and Denies neck pain Cardiovascular: Cardiovascular: Denies chest pain and Denies dyspnea Respiratory: Respiratory: Denies dyspnea Gastrointestinal: Gastrointestinal: Reports no additional gastrointestinal complaints Genitourinary: Genitourinary: Denies dysuria Musculoskeletal: Musculoskeletal: Denies neck pain Integumentary/Breasts: Skin/Breast: Denies dry skin Neurologic: Reports Normal hearing present, Denies headache(s) and Denies weakness Psychiatric: Psychiatric: Denies anxiety Endocrine: Endocrine: Denies change in body appearance Hematologic/Lymphatic: Hematologic/Lymphatic: Denies easy bleeding Allergic/Immunologic: Allergic/Immunologic: Denies urticaria PMFSH Past Medical History Medical History Aortic valve regurgitation Benign essential HTN Dilated aortic root Eczema Hyperlipidemia ARI on CPAP Osteoarthritis of left knee Pneumonia due to COVID-19 virus Thoracic aortic aneurysm (TAA) Surgical History Surgical History Bariatric surgery status History of arthroscopy of left knee medial meniscectomy History of rotator cuff surgery Hx of appendectomy Hx of cholecystectomy S/P excision of lipoma Family History Family History Mother , Glaucoma before diagnosed before passing. Glaucoma Father Family history of cardiovascular disease Grandparent Family history of cardiovascular disease Grandparent Breast cancer Social History Social History Social History: Smoking status: Never smoker Second hand tobacco smoke exposure: No Additional smoking assessment comments: PT DENIES ALL FORMS OF TOBACCO USE Alcohol intake: never Substance use: never Substance use type: does not use Living arrangements: with family Gender identity (if verbalized by the patient): Male Sexual Orientation (if Verbalized by the Patient): Straight or Heterosexual Spiritual care concerns: No Meds Home Medications and Allergies Home Medications Medication Instructions Recorded Confirmed Type metoprolol tartrate 25 mg tablet 12.5 mg PO BID 11/30/20 09/10/21 History losartan 50 mg-hydrochlorothiazide 1 tablet PO QAM 04/16/21 09/10/21 History 12.5 mg tablet omeprazole 20 mg capsule,delayed 20 mg PO QAM 04/16/21 09/10/21 History release sodium sul 1.479 gram-potas ch See Rx Instructions PO PER PKG DIR 09/02/21 09/10/21 Rx 0.188 gram-magnes sul 0.225 gram #24 tabs tablet (Sutab) atorvastatin 10 mg tablet 10 mg PO DAILY 09/03/21 09/10/21 History Allergies Allergy/AdvReac Type Severity Reaction Status Date / Time ampicillin Allergy Mild RASH Verified 09/10/21 13:36 Penicillins Allergy Mild Rash Verified 09/10/21 13:36 Vital Signs Vital Signs - 24 hr 09/10/21 13:20 Temperature 98.2 F Pulse Rate 56 L Respiratory Rate 18 Blood Pressure 119/68 Pulse Oximetry 99 Oxygen Delivery Room Air Exam Const: General: comfortable and no acute distress HENMT: General nose exam: Normal nares present Eyes: General: appearance normal, both eyes and all related structures Neck: Neck: no JVD Resp: Auscultation: clear to auscultation bilaterally Cardio: Rate: regular rate Rhythm: regular rhythm GI: Inspection: non-distended GI Palp: Yes Soft
[2021-09-10 14:23] VITALS: BP 110/54; PULSE 61; RESP 16; O2SAT 97
[2021-09-10 14:33] VITALS: BP 117/64; PULSE 61; RESP 20; O2SAT 100
[2021-09-10 14:43] VITALS: BP 121/73; PULSE 61; RESP 20; O2SAT 99
--- NOTE | 2021-09-10 14:43 | WPDANESPN ---
Anes - Prog Note Post-Op Date/Time: 09/10/21 14:43 Cardiovascular status: normal Respiratory status: normal Airway patency: baseline Mental status: baseline Post-Op hydration status: normal Vital Signs: Last Vital Signs Temp 36.8 C 09/10/21 13:20 Pulse 61 09/10/21 14:23 Resp 16 09/10/21 14:23 BP 110/54 L 09/10/21 14:23 Pulse Ox 97 09/10/21 14:23 O2 Del Method Room Air 09/10/21 14:23 Pain Score (VAS): 0 I/O: Intake & Output 09/09/21 09/10/21 09/10/21 23:59 07:59 15:59 Intake Total 600 Balance 600 Patient Feedback: Patient satisfied with anesthetic care.
== END 2021-09-10 15:03 | disposition home or self-care (01) ==
PROVIDERS: PCP Family Medicine; Visit Provider Internal Medicine Gastroenterology
PROC: 0DJD8ZZ Inspection of Lower Intestinal Tract, Via Natural or Artificial Opening Endoscopic (ICD-10-PCS; CPT 45378; principal; 2021-09-10 14:30)
DX: Z86.010 Personal history of colon polyps (principal); D12.2 Benign neoplasm of ascending colon; K64.8 Other hemorrhoids
CPT/HCPCS: 45380

== ENCOUNTER 2021-09-10 13:45 | Outpatient (NON) | payer MEDICARE, SELFPAY | END 2021-09-11 13:46 | disposition home or self-care (01) | LOC: ANHLAB 09-12 09:56 | PROVIDERS: PCP Family Medicine; Visit Provider Internal Medicine Gastroenterology | DX: K63.5 Polyp of colon (principal) | CPT/HCPCS: 88305 ==

== ENCOUNTER 2022-01-21 16:29 | Observation (INO) | payer MEDICARE, SELFPAY ==
[2022-01-21] VITALS (10 sets, daily range): BP systolic 105–143; BP diastolic 58–75; PULSE 52–60; RESP 13–19; TEMP 36.4–36.6; O2SAT 97–100; BMI 34.4
--- NOTE | ~2022-01-21 | NM_ITS ---
EXAMINATION: NM lashon stress w perfusion DATE: 01/22/2022 12:38 INDICATION: Chest pain. TECHNIQUE: Rest images were obtained following intravenous administration of 10.5 mCi Tc99m tetrofosm in (Myoview). The patient was infused intravenously with Lexiscan (regadenoson). Then, 34.3 mCi Tc99m tetrofosmin (Myoview) was administered intravenously, and supine and prone stress images were obtain ed. Data was reconstructed into short axis and horizontal and vertical long axis SPECT images. Gated SPECT images were also obtained. COMPARISON: Chest CT 07/05/2021 FINDINGS: There is no definite reversible or fixed perfusion abnormality to suggest ischemia or infar ction. There is no segmental wall motion abnormality. Left ventricular ejection fraction measures > 70%. IMPRESSION: 1. No definite ischemia or infarct. 2. Normal left ventricular ejection fraction measuring >70%. Reviewed, dictated and finalized at location A. MACIST MANAGER
--- NOTE | ~2022-01-21 | XR_ITS ---
EXAMINATION: XR chest 2V Exam Date/Time: 01/21/2022 16:52 QUALITY CONTROL DIRECTOR HISTORY: chest pain Comparison: 07/12/2020. RESULT: Lines, tubes, and devices: None. Lungs and pleura: Similar linear bibasilar opacities likely representing atelectasis or scar. Mild s enescent change. Cardiomediastinal silhouette: Stable. Other: No acute osseous or upper abdominal finding. IMPRESSION: No acute cardiopulmonary process. Reviewed, dictated and finalized at location K. ITY CONTROL DIRECTOR
--- NOTE | 2022-01-21 16:30 | ECG_ITS ---
Measurements Intervals [place] Rate: 57 P: 27 OR: 162 QRS: -16 QRSD: 90 T: 22 QT: 416 QTc: 408 Interpretive Statements SINUS BRADYCARDIA VOLTAGE CRITERIA FOR LVH BORDERLINE ECG NO PREVIOUS ECG AVAILABLE FOR COMPARISON Electronically Signed On 01-21-2022 16:43:18 CALENDERING SUPERVISOR by Prosper Rahman D.O.
[2022-01-21 17:04] LABS: Basophils Absolute Auto 0.1 K/mm3 (0.0-0.1); Eosinophils Absolute Auto 0.6 K/mm3 (0-0.3); Eosinophils Percent Auto 8.7 % (0-4.4); Hematocrit 43.8 % (42.0-52.0); Hemoglobin 15.5 g/dL (14.0-18.0); Immature Granulocyte Absolute 0.03 K/mm3 (0.00-0.031); Immature Granulocyte Percent A 0.4 % (0-0.5); Lymphocytes Absolute Auto 1.82 K/mm3 (0.9-3.2); Lymphocytes Percent Auto 26.3 % (18.3-44.2); Mean Corpuscular HGB Conc 35.4 g/dl (32-36); Mean Corpuscular Hemoglobin 31.9 pg (26-34); Mean Corpuscular Volume 90.1 fl (80-100); Mean Platelet Volume 8.4 fl (7.4-10.4); Monocytes Absolute Auto 0.9 K/mm3 (0.1-0.6); Monocytes Percent Auto 13.2 % (2.6-8.5); Neutrophils Absolute Auto 3.5 K/mm3 (1.3-6.7); Neutrophils Percent Auto 50.4 % (45.5-73.1); Platelet Count Result 280 k/mm3 (150-375); Red Blood Count 4.86 M/mm3 (4.6-6.20); White Blood Count 6.9 K/mm3 (4.5-10.0)
--- NOTE | 2022-01-21 17:16 | ED.CHESTPAIN ---
HPI - Chest Pain General Chief Complaint: Chest Pain Stated Complaint: chest pain Time Seen by Provider: 01/21/22 17:16 Source: patient Mode of arrival: ambulatory Limitations: no limitations History of Present Illness HPI narrative: Patient is 66 years old white male referred to our emergency room from Dr. Hirsch office because of intermittent chest pain for the last 3 weeks, retrosternal, discomfort, no radiation, associated with hard to breathe. Patient denies any aggravating or relieving factors, that discomfort comes at any time regardless rest or activity. Usually last 2 to 3 hours then improves spontaneously. Today the pain woke him up from sleep at 5 AM and has been constant since, 6 out of 10. History of hypertension, hyperlipidemia and GERD. He takes omeprazole [id number]. He does not take aspirin or any anticoagulant medication. Patient started seeing Dr. Hirsch roughly 2 years ago because of a murmur. Patient's father had history of CABG Related Data Home Medications Medication Instructions Recorded Confirmed metoprolol tartrate 25 mg tablet 12.5 mg PO BID 11/30/20 12/13/21 omeprazole 20 mg capsule,delayed 20 mg PO QAM 04/16/21 12/13/21 release Allergies Allergy/AdvReac Type Severity Reaction Status Date / Time ampicillin Allergy Mild RASH Verified 12/12/21 15:16 Penicillins Allergy Mild Rash Verified 12/12/21 15:16 Review of Systems Review of Systems: All systems reviewed & are unremarkable except as noted in HPI and below PMFSH Past Medical History Medical History Aortic valve regurgitation Benign essential HTN Dilated aortic root Eczema Hyperlipidemia ARI on CPAP Osteoarthritis of left knee Pneumonia due to COVID-19 virus Thoracic aortic aneurysm (TAA) Surgical History Surgical History Bariatric surgery status History of arthroscopy of left knee medial meniscectomy History of rotator cuff surgery Hx of appendectomy Hx of cholecystectomy S/P excision of lipoma Family History Family History Mother , Glaucoma before diagnosed before passing. Glaucoma Father Family history of cardiovascular disease Grandparent Family history of cardiovascular disease Grandparent Breast cancer Social History Social History (Updated 12/12/21 @ 15:18 by Payal García Social History: Smoking status: Never smoker Second hand tobacco smoke exposure: No Additional smoking assessment comments: PT DENIES ALL FORMS OF TOBACCO USE Alcohol intake: never Substance use: never Substance use type: does not use Gender identity (if verbalized by the patient): Male Sexual Orientation (if Verbalized by the Patient): Straight or Heterosexual Spiritual care concerns: No Exam Narrative: General appearance: Well-developed, well-nourished Skin: Normal color Head: Normocephalic, nontraumatic Eyes: Clear conjunctiva ENT: Oropharynx normal, ears normal, nose normal Neck: Supple, nontender Chest and respiratory: Airway patent, no respiratory distress, no accessory muscle use Heart: Regular rate/rhythm Abdomen: Soft, nontender, no organomegaly, quiet bowel sounds Vascular: Normal peripheral pulses, normal capillary refill. Musculoskeletal: Normal range of motion, nontender back Neurologic: Alert and oriented ?3, [employer] CONS[employer]ANT is normal as tested, no gross motor deficit Course Course Emergency Course: Unstable angina, GERD related symptoms are my concern. Patient will be admitted to IMU, observation to rule out the possibility of coronary a
[2022-01-21 17:34] LABS: INR 1.1; Prothrombin Time 13.8 Seconds (11.1-14.7)
[2022-01-21 17:35] LABS: Partial Thromboplastin Time 28.9 SECONDS (22.3-36.8)
[2022-01-21 19:40] LABS: Alanine Aminotransferase 42 U/L (6-50); Albumin Level 4.3 g/dL (3.5-5.1); Alkaline Phosphatase 62 U/L (38-126); Anion Gap 14 mmol/L (8-16); Aspartate Amino Transferase 36 U/L (17-59); Bilirubin,Total 0.8 mg/dL (0.2-1.3); Blood Urea Nitrogen 22 mg/dL (9-20); Calcium 8.4 mg/dL (8.4-10.2); Carbon Dioxide 27 mmol/L (22-30); Chloride 100 mmol/L (98-107); Estimated CRCL calculation 67 ml/min; Estimated Glomerular Filt Rate > 60; Glucose 92 mg/dL (65-110); Lipase 131 U/L (23-300); Potassium 3.6 mmol/L (3.4-5.0); Sodium 141 mmol/L (137-145)
[2022-01-21] MEDS: ASPIRIN 81 MG CHEWABLE TABLET 324 MG PO (19:51)
[2022-01-21 19:52] LABS: Troponin I 0.012 ng/mL (0.000-0.034)
[2022-01-21] MEDS: BELLADONNA ALK/PHENOB ELIX 10 ML, MAG HYDROX/ALUMINUM HYD/SIMETH 30 ML, LIDOCAINE HCL 2... PO (19:52)
--- NOTE | 2022-01-21 20:33 | PM.IMHP ---
H&P: HPI History of Present Illness Date/Time: 01/21/22 20:33 Chief Complaint: chest pain Narrative: This is a 58-year-old male with past medical history significant for dyslipidemia, hypertension, obstructive sleep apnea on CPAP at night time. [facility] Past Medical History Medical History Aortic valve regurgitation Benign essential HTN Dilated aortic root Eczema Hyperlipidemia ARI on CPAP Osteoarthritis of left knee Pneumonia due to COVID-19 virus Thoracic aortic aneurysm (TAA) Surgical History Surgical History Bariatric surgery status History of arthroscopy of left knee medial meniscectomy History of rotator cuff surgery Hx of appendectomy Hx of cholecystectomy S/P excision of lipoma Family History Family History Mother , Glaucoma before diagnosed before passing. Glaucoma Father Family history of cardiovascular disease Grandparent Family history of cardiovascular disease Grandparent Breast cancer Social History Social History (Updated 12/12/21 @ 15:18 by Payal Pelaez) Social History: Smoking status: Never smoker Second hand tobacco smoke exposure: No Additional smoking assessment comments: PT DENIES ALL FORMS OF TOBACCO USE Alcohol intake: never Substance use: never Substance use type: does not use Lack of Transportation: No Lack of Food: Never True Current Housing: I Have Housing Concerned About Future Housing: No Difficulty Paying Gas/Electric Bills: No Difficulty Paying for Meds: No Currently Unemployed: No Education: Decline to Answer Difficulty w/ Childcare or Family Care: No Gender identity (if verbalized by the patient): Male Sexual Orientation (if Verbalized by the Patient): Straight or Heterosexual Spiritual care concerns: No Meds Home Medications and Allergies Home Medications Medication Instructions Recorded Confirmed Type metoprolol tartrate 25 mg tablet 12.5 mg PO BID 11/30/20 01/21/22 History losartan 50 mg-hydrochlorothiazide 1 tablet PO QAM #100 tabs 12/06/21 01/21/22 Rx 12.5 mg tablet atorvastatin 10 mg tablet 10 mg PO DAILY 01/21/22 01/21/22 History Allergies Allergy/AdvReac Type Severity Reaction Status Date / Time ampicillin Allergy Mild RASH Verified 12/12/21 15:16 Penicillins Allergy Mild Rash Verified 12/12/21 15:16 Vital Signs Vital Signs - 24 hr 01/21/22 16:39 01/21/22 19:02 01/21/22 19:03 Temperature 97.9 F Pulse Rate 60 54 L 57 L Respiratory Rate 18 15 Blood Pressure 116/69 143/63 H Pulse Oximetry 99 99 99 Oxygen Delivery Room Air 01/21/22 19:15 01/21/22 19:16 01/21/22 19:34 Temperature Pulse Rate 55 L 55 L 57 L Respiratory Rate 16 13 19 Blood Pressure 136/75 Pulse Oximetry 97 98 98 Oxygen Delivery 01/21/22 19:52 Temperature Pulse Rate 57 L Respiratory Rate 14 Blood Pressure Pulse Oximetry 98 Oxygen Delivery H&P: Results Labs Labs: Short CBC 01/21/22 Range/Units 16:42 WBC 6.9 (4.5-10.0) K/mm3 Hgb 15.5 (14.0-18.0) g/dL Hct 43.8 (42.0-52.0) % Plt Count 280 (150-375) k/mm3 BMP 01/21/22 19:20 Sodium 141 Potassium 3.6 Chloride 100 Carbon Dioxide 27 BUN 22 H Creatinine 0.90 Glucose 92 Calcium 8.4 Cardiac Enzymes 01/21/22 Range/Units 19:20 Troponin I 0.012 (0.000-0.034) ng/mL Liver Function 01/21/22 Range/Units 19:20 Total Bilirubin 0.8 (0.2-1.3) mg/dL AST 36 (17-59) U/L ALT 42 (6-50) U/L Alkaline Phosphatase 62 (38-126) U/L Albumin 4.3 (3.5-5.1) g/dL
--- NOTE | 2022-01-21 21:07 | ADMGEN ---
This patient, Romario Emerson, was admitted to IMU Room 210-01 at 2100. Patient/family oriented to hospital policies and general routines including ID bracelet, bed and alarms, visiting hours, pain management, procedures, bathroom and other care routines, personal items, smoking policy, room service/diet, and visiting hours. Information on how to activate the Rapid Response Team has been discussed. Patient/Family are encouraged to report perceived risks to care and to ask questions if they do not understand what they are told or what they should do.
[2022-01-22] VITALS (11 sets, daily range): BP systolic 105–118; BP diastolic 58–64; PULSE 47–65; RESP 16–20; TEMP 35.6–36.5; O2SAT 99–100
[2022-01-22 00:40] LABS: Troponin I < 0.012 ng/mL (0.000-0.034)
[2022-01-22 00:56] LABS: SARS-CoV-2 RNA PCR Negative
--- NOTE | 2022-01-22 01:10 | PM.IMHP ---
H&P: HPI History of Present Illness Date/Time: 01/22/22 01:10 Chief Complaint: CHEST PAIN Narrative: This is a 66-year-old male with past medical history significant for hypertension, dyslipidemia, grade I diastolic heart failure, obstructive sleep apnea on CPAP at nighttime patient presents to the emergency room for evaluation due to 3 weeks of chest pain on and off not related to food intake, occurs at rest or with activity does not seem to be triggered by any factor patient takes omeprazole but did not relieve it aided localized to the retrosternal area with radiation to the jaw and the left shoulder, no nausea, no vomiting, no abdominal pain, no cough, no sputum production, no palpitations, no lightheadedness, no syncope, no near syncope, no fevers, no rigors, no chills, patient has some bilateral ankle swelling, he rates the pain at 5/10 intensity it is pressure-like. Preliminary workup has been essentially nonrevealing. Review of Systems Review of Systems: retrosternal chest pain, shortness of breath. Constitutional: Constitutional: Denies chills, Denies fever(s), Denies malaise, Denies night sweats and Denies weakness Eyes: Eyes: Denies change in vision ENT: Denies dysphagia, Denies vertigo, Denies dizziness and Denies odynophagia Cardiovascular: Cardiovascular: Reports chest pain, Reports pedal edema, Denies irregular heart rhythm, Denies lightheadedness, Denies dyspnea on exertion, Denies orthopnea and Reports paroxysmal nocturnal dyspnea Respiratory: Respiratory: Denies chest congestion, Denies cough and Denies pain on inspiration Gastrointestinal: Gastrointestinal: Denies abdominal pain, Denies dyspepsia, Denies heartburn, Denies diarrhea, Denies nausea and Denies vomiting Genitourinary: Genitourinary: Denies dysuria Musculoskeletal: Musculoskeletal: Denies myalgias, Denies joint swelling, Denies limited range of motion, Denies muscle weakness and Denies numbness Integumentary/Breasts: Skin/Breast: Denies rash Neurologic: Denies vertigo, Denies dizziness, Denies focal weakness and Denies Sensory deficit (Neuro) Psychiatric: Psychiatric: Reports no additional psychiatric complaints and Reports as per HPI Endocrine: Endocrine: Denies cold intolerance, Denies flushing, Denies heat intolerance, Denies polyphagia, Denies polydipsia and Denies palpitations Hematologic/Lymphatic: Hematologic/Lymphatic: Reports no additional hematologic/lymphatic complaints and Reports as per HPI Allergic/Immunologic: Allergic/Immunologic: Reports no additional allergic/immunologic complaints and Reports as per HPI [facility] Past Medical History Medical History (Updated 01/22/22 @ 01:25 by Fabio Jenkins MD) Aortic valve regurgitation Benign essential HTN Dilated aortic root Eczema Hyperlipidemia ARI on CPAP Osteoarthritis of left knee Pneumonia due to COVID-19 virus Thoracic aortic aneurysm (TAA) Surgical History Surgical History Bariatric surgery status History of arthroscopy of left knee medial meniscectomy History of rotator cuff surgery Hx of appendectomy Hx of cholecystectomy S/P excision of lipoma Family History Family History Mother , Glaucoma before diagnosed before passing. Glaucoma Father Family history of cardiovascular disease Grandparent Family history of cardiovascular disease Grandparent Breast cancer Social History Social History (Updated 12/12/21 @ 15:18 by Payal Pelaez) Social History: Smoking status: Never smoker Second hand tobacco smoke exposure: No Additional smoking assessment comments: PT DENIES ALL FORMS OF TOBACCO USE Alcohol intake: never Substance use: never Substance use type: does not use Lack of Transportation: No Lack of Food: Never True Current Housing: I Have Housing Concerned About Future Housing: No Difficulty Paying Gas/El
[2022-01-22 03:32] LABS: Troponin I < 0.012 ng/mL (0.000-0.034)
[2022-01-22] MEDS: hydroCHLOROthiazide 12.5 MG CAPSULE PO (08:18)
[2022-01-22] MEDS: LOSARTAN POTASSIUM 50 MG TABLET PO (08:18)
[2022-01-22] MEDS: PANTOPRAZOLE SODIUM IV 40 MG VIAL IV PUSH (08:18)
[2022-01-22] MEDS: METOPROLOL TARTRATE 12.5 MG TABLET PO (08:18)
[2022-01-22] MEDS: ASPIRIN 81 MG CHEWABLE TABLET PO (08:19)
--- NOTE | 2022-01-22 10:00 | PM.CNCAR ---
Assessment and Plan Assessment and plan (1) Chest pain: Code(s): R07.9 - Chest pain, unspecified Status: Acute Assessment and Plan: Troponins negative x 3. ECG without ischemic changes. A Lexiscan has already been ordered - agree with noninvasive stress testing. Further recommendations pending results of stress test. History of Present Illness History of Present Illness Consult date/time: 01/22/22 10:00 Requesting physician: Fabio Jenkins MD Consult reason: chest pain Reason For Visit: Chest Pain Narrative: Patient is a 66-year-old male with a history of hypertension, hyperlipidemia, mild-moderate aortic regurgitation, ascending aorta aneurysm who was sent from Dr. Hirsch's clinic to the ER for evaluation of chest pain. Patient has been having chest pain for the past 3 weeks. Episodes are substernal, come and go. Had an episode of chest pain that woke him up from sleep. No association with exertion. Was seen in clinic yesterday, and patient reported having constant chest pain that had been occurring all day, rated at 6/10. Given this, patient was sent to the ER for further evaluation. Patient states he still feels some chest pain this morning. Troponins were negative x 3. ECG without ischemic changes. Review of Systems Review of Systems: 12-point ROS obtained. Negative, unless stated in HPI. [facility] Past Medical History Medical History Aortic valve regurgitation Benign essential HTN Dilated aortic root Eczema Hyperlipidemia ARI on CPAP Osteoarthritis of left knee Pneumonia due to COVID-19 virus Thoracic aortic aneurysm (TAA) Surgical History Surgical History Bariatric surgery status History of arthroscopy of left knee medial meniscectomy History of rotator cuff surgery Hx of appendectomy Hx of cholecystectomy S/P excision of lipoma Family History Family History Mother , Glaucoma before diagnosed before passing. Glaucoma Father Family history of cardiovascular disease Grandparent Family history of cardiovascular disease Grandparent Breast cancer Social History Social History Social History: Smoking status: Never smoker Second hand tobacco smoke exposure: No Additional smoking assessment comments: PT DENIES ALL FORMS OF TOBACCO USE Alcohol intake: never Substance use: never Substance use type: does not use Lack of Transportation: No Lack of Food: Never True Current Housing: I Have Housing Concerned About Future Housing: No Difficulty Paying Gas/Electric Bills: No Difficulty Paying for Meds: No Currently Unemployed: No Education: Decline to Answer Difficulty w/ Childcare or Family Care: No Gender identity (if verbalized by the patient): Male Sexual Orientation (if Verbalized by the Patient): Straight or Heterosexual Spiritual care concerns: No Meds Home Medications and Allergies Home Medications Medication Instructions Recorded Confirmed Type metoprolol tartrate 25 mg tablet 12.5 mg PO BID 11/30/20 01/21/22 History losartan 50 mg-hydrochlorothiazide 1 tablet PO QAM #100 tabs 12/06/21 01/21/22 Rx 12.5 mg tablet atorvastatin 10 mg tablet 10 mg PO HS 01/21/22 01/22/22 History Allergies Allergy/AdvReac Type Severity Reaction Status Date / Time ampicillin Allergy Mild RASH Verified 12/12/21 15:16 Penicillins Allergy Mild Rash Verified 12/12/21 15:16 Vital Signs Vital Signs - 24 hr 01/21/22 16:39 01/21/22 19:02 01/21/22 19:03 Temperature 36.6 C Pulse Rate 60 54 L 57 L Respiratory Rate 18 15 Blood Pressure 116/69 143/63 H Pulse Oximetry 99 99 99 Oxygen Delivery Room Air 01/21/22 19:15 01/21/22 19:16 01/21/22 19:34 Temperature Pulse Rate 55 L 55 L 57 L Respiratory Rate 16 13 19
--- NOTE | 2022-01-22 10:50 | PC.NURSE ---
Pt to nuclear medicine for stress test via wheelchair
--- NOTE | 2022-01-22 11:44 | EST_ITS ---
Patient Info Name: Romario Emerson Age: 66 years : 1955 Gender: Male Ht: 66 in Wt: 213 lbs BSA: 2.16 m2 HR: 55 bpm BP: 122 / 71 mmHg Heart Rhythm: Sinus Rhythm Exam Date: 01/22/2022 11:48 AM Exam Location: [facility] Stress Patient Status: Inpatient Admit Date: 01/21/2022 Staff Ordering Physician: Fabio Jenkins MD Attending Provider: Fabio Jenkins MD Referring Physician: RENETTA BOJORQUEZ; Exercise Physician: Ana Rosa Montero MD Exam Type: CA stress lashon w NM Study Info Indications R07.9 - Chest pain, unspecified A regadenoson stress test was performed. Summary 1. Please correlate with nuclear medicine images, reported separately. 2. No abnormal ST-T wave changes with lexiscan. Protocol: Lexiscan Stress ECG Details Stage: REST Duration (min): 1 min : 6 sec HR (bpm): 55 SBP (mmHg): 122 DBP (mmHg): 71 Stage: REST Duration (min): 6 min : 29 sec HR (bpm): 52 SBP (mmHg): 122 DBP (mmHg): 71 Stage: STAGE 1 Duration (min): 1 min : 0 sec HR (bpm): 71 SBP (mmHg): 125 DBP (mmHg): 72 Stage: RECOVERY Duration (min): 1 min : 0 sec HR (bpm): 82 SBP (mmHg): 125 DBP (mmHg): 72 Stage: RECOVERY Duration (min): 2 min : 0 sec HR (bpm): 75 SBP (mmHg): 125 DBP (mmHg): 72 Stage: RECOVERY Duration (min): 2 min : 59 sec HR (bpm): 69 SBP (mmHg): 118 DBP (mmHg): 66 Rest HR: 52 bpm Peak HR: 82 bpm Rest Sys BP: 122 mmHg Peak Sys BP: 125 mmHg Max Pred HR: 152 bpm % Max Pred HR: 54 % Target HR: 129 bpm Max RPP: 10,250 bpm*mmHg Total Time: 1 min : 0 sec Rest Adler BP: 71 mmHg Peak Adler BP: 72 mmHg Total Dose: 0.4 mg Resting ECG Sinus bradycardia. Stress ECG Sinus rhythm. No abnormal ST/T wave changes with Lexiscan. Arrhythmias None. Report Signatures
--- NOTE | 2022-01-22 12:35 | PC.NURSE ---
Pt returned from nuclear medicine
--- NOTE | 2022-01-22 19:29 | PM.DS ---
DS: Admitting Diagnosis Discharge Date 01/22/22 Admitting Diagnosis Chest pain DS: Discharge Diagnosis Discharge Diagnosis (1) Chest pain: Code(s): R07.9 - Chest pain, unspecified Status: Acute Assessment and Plan: admit to IMU bed rest with bathroom privileges serial troponins EKG reviewed chest x-ray reviewed dobutamine stress test in the morning (2) Obesity (BMI 30.0-34.9): Code(s): E66.9 - Obesity, unspecified Status: Acute Assessment and Plan: lifestyle and diet modifications (3) Benign essential HTN: Code(s): I10 - Essential (primary) hypertension Status: Acute Assessment and Plan: restart home meds continue to monitor (4) Dilated aortic root: Code(s): I77.810 - Thoracic aortic ectasia Status: Acute Assessment and Plan: chest x-ray reviewed continue metoprolol continue to monitor (5) ARI on CPAP: Code(s): G47.33 - Obstructive sleep apnea (adult) (pediatric); Z99.89 - Dependence on other enabling machines and devices Status: Acute Assessment and Plan: continue CPAP at nighttime DS: Summary Hospital Course Hospital Course: 66-year-old male with past medical history significant for hypertension, dyslipidemia, grade I diastolic heart failure, obstructive sleep apnea on CPAP at nighttime patient presents to the emergency room for evaluation due to 3 weeks of chest pain on and off not related to food intake, occurs at rest or with activity does not seem to be triggered by any factor patient takes omeprazole but did not relieve it? aided localized to the retrosternal area with radiation to the jaw and the left shoulder, no nausea, no vomiting, no abdominal pain, no cough, no sputum production, no palpitations, no lightheadedness, no syncope, no near syncope, no fevers, no rigors, no chills, patient has some? bilateral ankle swelling, he rates the pain at 5/10 intensity it is pressure-like.? Preliminary workup has been essentially nonrevealing. Lexiscan is normal. Patient now reports that he is chest pain free. Unclear etiology for patient's chest pain, does not appear to be musculoskeletal, GI-related. No history to suggest PE. BP is well-controlled as well.? Discussed results of normal stress test with the patient. Discussed with the patient that the only way to know for sure there are no significant coronary artery blockages is with a cardiac cath, and I did offer cardiac cath, however, patient states he wants to hold off on that for now. He reports he had a normal cardiac cath at [place] several years ago. Patient okay to discharge home. Will have him follow up with us in clinic. Time Spent with Patient Time attestation: Total time spent providing and/or coordinating discharge services: Exam Narrative: General: No acute distress, alert and oriented per baseline HEENT: Atraumatic, normocephalic, mucous membranes moist CV: Regular rate and rhythm, S1, S2 Lungs: Clear to auscultation bilaterally, no rales or crackles noted, no wheezes, good air entry Abdomen: Soft, nontender, nondistended Extremities: Normal to inspection Skin: No rashes noted, no lesions or wounds seen Psych: Euthymic, normal affect DS: Data Data Completed and Pending Labs on day of discharge: Labs from last 24 hours 01/22/22 01/22/22 01/21/22 02:58 00:08 19:20 Sodium 141 Potassium 3.6 Chloride 100 Carbon Dioxide 27 Anion Gap 14 BUN 22 H Creatinine 0.90 Estim Creat Clear Calc 67 Estimated GFR > 60 Glucose 92 Calcium 8.4 Total Bilirubin 0.8 AST 36 ALT 42 Alkaline Phosphatase 62 Troponin I < 0.012 < 0.012 0.012 Total Protein 7.0 Albumin 4.3 Lipase 131 SARS-CoV-2 RNA (RT-PCR) 01/21/22 18:55 Sodium Potassium Chloride Carbon Dioxide Anion Gap BUN Creatinine Estim Creat Clear Calc Estimated GFR Glucose Calcium Total Bilirubin AST
== END 2022-01-22 15:31 | disposition home or self-care (01) ==
LOC: ANHED 19:08 → ANHIMU 20:46
PROVIDERS: Admitting Provider Internal Medicine; Emergency Provider Emergency Medicine; PCP Family Medicine; Visit Provider Student in an Organized Health Care Education/Training Program
DX: R07.9 Chest pain, unspecified (principal); E66.9 Obesity, unspecified; Z68.34 Body mass index [BMI] 34.0-34.9, adult; I11.9 Hypertensive heart disease without heart failure; I77.810 Thoracic aortic ectasia; G47.33 Obstructive sleep apnea (adult) (pediatric); Z99.89 Dependence on other enabling machines and devices; E78.5 Hyperlipidemia, unspecified; K21.9 Gastro-esophageal reflux disease without esophagitis; I35.1 Nonrheumatic aortic (valve) insufficiency; R01.1 Cardiac murmur, unspecified; R00.1 Bradycardia, unspecified; N40.0 Benign prostatic hyperplasia without lower urinary tract symptoms; Z86.16 Personal history of COVID-19; Z87.01 Personal history of pneumonia (recurrent); Z20.822 Contact with and (suspected) exposure to COVID-19; Z79.899 Other long term (current) drug therapy
CPT/HCPCS: 36415; 71046; 78452; 80053; 83690; 84484; 85025; 85610; 85730; 93005; 93017; 96374; 99285; A9270; A9502; C9113; G0378; J2785; U0003; U0005

== ENCOUNTER 2022-07-24 13:24 | Outpatient (CLI) | payer MEDICARE, SELFPAY ==
--- NOTE | 2022-07-24 | ECHO_ITS ---
Patient Info Name: Romario Emerson Age: 66 years : 1955 Gender: Male Ht: 67 in Wt: 225 lbs BSA: 2.24 m2 HR: 63 bpm BP: 135 / 73 mmHg Heart Rhythm: Sinus Rhythm Exam Date: 07/24/2022 2:05 PM Exam Location: [facility] Patient Status: Outpatient Admit Date: 07/24/2022 Staff Ordering Physician: Ollie Hirsch MD Pipe Crew Foreman: Emily Helm RDCS Attending Provider: Ollie Hirsch MD Referring Physician: Torrey RICKS; Exam Type: CA echo doppler color flow Study Info Indications - SOB, HEART VALVE ISSUE Complete two-dimensional, color flow and Doppler transthoracic echocardiogram is performed. Summary 1. Complete two-dimensional, color flow and Doppler transthoracic echocardiogram is performed. 2. Left ventricular chamber dimension is normal. 3. Left ventricular systolic function is normal, estimated at 60-65%. 4. There is mildly increased left ventricular wall thickness. 5. The left ventricular diastolic function is grade I diastolic dysfunction. 6. Right ventricular systolic function is normal. 7. There is mild aortic valve calcification. 8. There is moderate aortic valve regurgitation. 9. The mitral valve has thickened leaflets. 10. The mitral valve annulus is moderately calcified. 11. There is trace mitral valve regurgitation. 12. There is mild tricuspid valve regurgitation. Left Ventricle Left ventricular chamber dimension is normal. Left ventricular systolic function is normal, estimated at 60-65%. There is mildly increased left ventricular wall thickness. The left ventricular diastolic function is grade I diastolic dysfunction. Right Ventricle Right ventricular chamber dimension is normal. Right ventricular systolic function is normal. Left Atria Left atrial chamber dimension is normal. Right Atria Right atrial chamber dimension is normal. Atrial Septum Intact interatrial septum visualized by color flow imaging. Aortic Valve The aortic valve is not well visualized. There is no aortic valve stenosis. There is moderate aortic valve regurgitation. There is mild aortic valve calcification. Pulmonic Valve The pulmonic valve is not well visualized. Mitral Valve The mitral valve has thickened leaflets. There is trace mitral valve regurgitation. The mitral valve annulus is moderately calcified. Tricuspid Valve There is mild tricuspid valve regurgitation. Pericardium/Pleural The pericardium appears epicardial fat pad. There is no pericardial effusion. Inferior Vena Cava Normal inferior vena cava with >50% collapse upon inspiration consistent with normal right atrial pressure, 3 mmHg. Aorta The aortic root size at the sinus of Valsalva is normal. Left Ventricular Outflow Tract Name Value Normal LVOT 2D LVOT Diameter 2.1 cm LVOT Doppler LVOT Peak Gradient 8 mmHg LVOT Mean Gradient 4 mmHg LVOT VTI 35 cm LVOT VTI/AV VTI Ratio 0.7 LVOT Stroke Volume 117 ml LVOT CO 7.5 l/min LVOT CI 3.4 l/min/m2 Pulmonic Valve
== END 2022-07-24 13:25 | disposition home or self-care (01) ==
PROVIDERS: PCP Family Medicine; Visit Provider Internal Medicine Cardiovascular Disease
DX: I35.1 Nonrheumatic aortic (valve) insufficiency (principal); I36.1 Nonrheumatic tricuspid (valve) insufficiency; I34.0 Nonrheumatic mitral (valve) insufficiency
CPT/HCPCS: 93306

== ENCOUNTER 2022-10-13 16:29 | Outpatient (CLI) | payer MEDICARE, SELFPAY ==
--- NOTE | ~2022-10-13 | US_ITS ---
EXAMINATION: US venous doppler LE RT DATE: 10/13/2022 18:07 INDICATION: M79.89 - Other specified soft tissue disorders . TECHNIQUE: Grayscale images without and with compression and Doppler images of the right lower extrem ity veins were obtained. COMPARISON: None FINDINGS: The right common femoral vein, profunda (deep) femoral vein, femoral vein, popliteal vein, peroneal v ein, posterior tibial veins, gastrocnemius vein, and greater saphenous vein are patent. IMPRESSION: 1. Patent right lower extremity veins. No evidence of deep venous thrombosis. Reviewed, dictated and finalized at location K.
== END 2022-10-13 16:30 | disposition home or self-care (01) ==
LOC: ANHIMG 16:36
PROVIDERS: PCP Family Medicine; Visit Provider Physician Assistant
DX: M79.89 Other specified soft tissue disorders (principal); M79.604 Pain in right leg
CPT/HCPCS: 93971

== ENCOUNTER 2023-01-02 14:12 | Outpatient (CLI) | payer MEDICARE, SELFPAY ==
--- NOTE | 2023-01-02 15:44 | WPDPFTINT ---
PFT Procedure Performed PFT Procedure Performed Spirometry with Pre/Post Bronchodilator Plethysmography (Lung Vol) Diffusing Cap (DLCO) Flow Vol Loop PFT Interpretation This is a pulmonary function test with pre and post-bronchodilator spirometry, plethysmography and diffusing capacity. The test was performed and results interpreted in accordance with the 2019 and 2005 ATS/ERS Task Force guidelines respectively using the Global Lung Function Initiative-2012 reference equations. Patient demonstrated good effort and cooperation. Reproducibility criteria were met. The quality of the pre bronchodilator spirometry maneuver was Grade B and post bronchodilator spirometry maneuver was Grade B. Findings: Spirometry: The contour the inspiratory and expiratory flow tracing are normal. The pre bronchodilator FVC is 2.66 L, 69% predicted. The pre bronchodilator FEV1 is 1.89 L, 64% predicted. The pre bronchodilator FEV1: FVC ratio 71%. The post bronchodilator FVC is 3.46 L, representing a 30% increase. The post bronchodilator FEV1 is 2.57 L, representing a 36% increase. The post bronchodilator FEV1: FVC ratio 74% predicted Plethysmography: The total lung capacity is 6.63 L, 104% predicted. The functional residual capacity is 1.39 L, 42% predicted. The residual volume is 1.38 L, 61% predicted. Diffusing capacity: The diffusing capacity unadjusted for hemoglobin and carboxyhemoglobin is 18.7, 75% predicted. The diffusing capacity adjusted for alveolar volume is 4.22, 102% predicted. In comparison to previous pulmonary function testing on 09/13/2020 in which only spirometry and plethysmography were performed, the post bronchodilator FVC is unchanged from 3.87 L to 3.46 L. The post bronchodilator FEV1 is unchanged from 2.99 L to 2.57 L. The total lung capacity is unchanged from 6.72 L to 6.63 L. The functional residual capacity is decreased from 2.40 L to 1.39 L. The residual volume has decreased from 2.27 L to 1.38 L. Impression: The spirometry is normal without evidence of an obstructive abnormality. The total lung volume is normal without evidence of a restrictive abnormality. The pre bronchodilator FVC and FEV1 are mildly decreased without an obstructive or restrictive abnormality. This is an abnormal but nonspecific finding. There is significant improvement after inhaling a single dose of albuterol. The total lung capacity is normal with a decreased functional residual capacity and residual volume. This is an abnormal but nonspecific finding. The diffusing capacity is normal. In comparison to previous pulmonary function on 09/13/2020 in which only spirometry and plethysmography were performed, there is a greater than anticipated time dependent decrease in the functional residual capacity and residual volume with no significant change in the FVC, FEV1, or total lung capacity. Clinical correlation is recommended.
== END 2023-01-02 14:13 | disposition home or self-care (01) ==
PROVIDERS: PCP Family Medicine; Visit Provider Physician Assistant
DX: R06.09 Other forms of dyspnea (principal)
CPT/HCPCS: 94060; 94726; 94729

== ENCOUNTER → 2023-01-19 14:28 | Outpatient (CLI) | payer MEDICARE, SELFPAY ==
--- NOTE | ~2023-01-19 | XR_ITS ---
EXAMINATION: XR chest 2V Exam Date/Time: 01/19/2023 14:29 COMMERCIAL LOAN OFFICER HISTORY: R05 - Cough Comparison: 01/21/2022, 07/12/2020. RESULT: Lines, tubes, and devices: None. Lungs and pleura: Unchanged streaky opacities in the left lung base, likely representing atelectasis /scar. Improved right lower lung aeration. No focal consolidation, effusion, or pneumothorax. Cardiomediastinal silhouette: Stable. Other: No acute osseous or upper abdominal finding. IMPRESSION: No acute cardiopulmonary process. Reviewed, dictated and finalized at location K. ERCIAL LOAN OFFICER
== END ==
PROVIDERS: PCP Family Medicine; Visit Provider Physician Assistant
DX: R05.9 Cough, unspecified (principal)
CPT/HCPCS: 71046

== ENCOUNTER 2023-06-02 07:38 | Outpatient (CLI) | payer MEDICARE, SELFPAY ==
--- NOTE | ~2023-06-02 | XR_ITS ---
Left ankle Technique: AP, oblique, and lateral views were obtained. Clinical History: Pain Findings: No acute fracture or dislocation is seen. Osseous alignment is anatomic. Ankle mortise and other visualized joint spaces are preserved. Soft tissues are otherwise unremarkable. Impression: Unremarkable left ankle. Reviewed, dictated and finalized at location . Impression: Unremarkable left ankle.
== END 2023-06-02 07:39 ==
LOC: MICIMG 07:39
PROVIDERS: PCP Family Medicine; Visit Provider Physician Assistant
DX: M25.572 Pain in left ankle and joints of left foot (principal)
CPT/HCPCS: 73610; 73630

== ENCOUNTER 2024-04-29 07:47 | Outpatient (CLI) | payer MEDICARE, SELFPAY ==
--- NOTE | ~2024-04-29 | CT_ITS ---
EXAMINATION: CTA chest DATE: 04/29/2024 08:46 INDICATION: Ascending aortic aneurysm without rupture. TECHNIQUE: Computed tomographic angiography (CTA) of the chest was performed with 100 mL Omnipaque-35 0 intravenous contrast. Automated exposure control and iterative reconstruction technique were employ ed. The dose-length product was 864.12 mGy-cm. Maximum intensity projection 3D-reconstructions of the aorta and other arteries were constructed by the technologist on a separate workstation. COMPARISON: Chest CT 07/05/2021 FINDINGS: The lungs demonstrate mild atelectasis. No pleural effusion. The heart size is normal. Ther e are coronary artery calcifications. No pericardial effusion. There is no pulmonary embolus. There i s chronic mild bilateral hilar lymphadenopathy, likely reactive. The aorta measures 4.2 cm at the sin uses of Valsalva, 3.2 cm at the sinotubular junction, 4.4 cm in the mid ascending aorta, 2.5 cm at th e aortic isthmus, and 2.6 cm in the mid descending aorta. There are changes of gastric sleeve procedu re. There is mild thoracic spondylosis. IMPRESSION: 1. Ectasia of ascending aorta measuring 4.4 cm, stable from 07/05/2021. Reviewed, dictated and finalized at location A. ING AGENCY COUNTER CLERK
[2024-04-29 08:27] LABS: Estimated Glomerular Filt Rate 60
== END 2024-04-29 07:48 | disposition home or self-care (01) ==
LOC: MICIMG 07:48
PROVIDERS: PCP Family Medicine; Visit Provider Internal Medicine
DX: I71.21 Aneurysm of the ascending aorta, without rupture (principal)
CPT/HCPCS: 71275; Q9967

== ENCOUNTER 2024-06-07 13:43 | Outpatient (CLI) | payer MEDICARE, SELFPAY ==
--- NOTE | ~2024-06-07 | MR_ITS ---
EXAMINATION: MR foot LT wo con DATE: 06/07/2024 14:14 INDICATION: Spontaneous rupture flexor tendons TECHNIQUE: Magnetic resonance imaging (MRI) of the left mid and hindfoot and ankle was performed with out intravenous contrast. Sequences included axial and coronal PD-weighted FS FSE, axial PD-weighted FSE, sagittal and coronal T1-weighted FSE and sagittal fluid sensitive FSE STIR. COMPARISON: Left foot and ankle radiographs dated 06/02/2023 FINDINGS: Medial ankle ligaments: Deep and superficial deltoid ligaments as well as the spring ligament are normal. Lateral ankle ligaments: The anterior and posterior inferior tibiofibular ligaments are normal. The anterior talofibular, calc aneofibular and posterior talofibular ligaments are normal. Tendons: Mild Achilles tendinosis without tear. Small enthesopathic ossicle at the distal insertion of the Ach illes tendon. The peroneus longus tendon is normal. Mild peroneus brevis tendinopathy with longitudin al split tear beginning at the level of the retromalleolar groove and extending beyond the level of t he tip of the lateral malleolus. The tendon is divided into 2 parts, the smaller compartment position ed lateral to the paranasal longus tendon and the larger component position medial to the tendon. The tibialis anterior and extensor hallucis longus and extensor digitorum longus tendons are normal. The tibialis posterior, flexor digitorum longus and flexor hallucis longus tendons are normal. Plantar fascia: Small enthesophyte at the calcaneal origin of the otherwise normal plantar aponeurosis with no associ ated marrow or surrounding soft tissue edema to suggest acute plantar fasciitis. Bones/other: Bone alignment is normal. Low signal intensity bone islands in the talar dome in the anterior calcane us. No reactive edema, fracture or pathologic marrow replacing process. Mild polyarticular osteoarthr itis at the tarsal metatarsal joints. The Lisfranc ligament complex is normal. Fluid: Visualized amount fluid in the joint spaces. No tenosynovitis or bursitis. There is prominent diffuse subcutaneous edema about the ankle and distal calf additional mild subcutaneous edema extending more distally along the dorsolateral aspect of the foot. IMPRESSION: 1. Mild tendinopathy and longitudinal split tearing of the peroneus brevis tendon. 2. Mild Achilles tendinosis without tear. 3. Chronic calcaneal enthesopathy with small amount is paradoxical the distal Achilles tendon and sma ll plantar calcaneal spur. Reviewed, dictated and finalized at location B. IMPRESSION: 1. Mild tendinopathy and longitudinal split tearing of the peroneus brevis tend on. 2. Mild Achilles tendinosis without tear. 3. Chronic calcaneal enthesopathy with small amount is paradoxical the distal A chilles tendon and small plantar calcaneal spur.
== END 2024-06-07 13:44 | disposition home or self-care (01) ==
LOC: MICIMG 13:43
PROVIDERS: PCP Family Medicine; Visit Provider Podiatrist Foot & Ankle Surgery
DX: M66.372 Spontaneous rupture of flexor tendons, left ankle and foot (principal)
CPT/HCPCS: 73718

== ENCOUNTER 2024-06-15 17:57 | Inpatient (IN) | payer MEDICARE, SELFPAY ==
[2024-06-15] VITALS (8 sets, daily range): BP systolic 156–171; BP diastolic 75–93; PULSE 81–99; RESP 17–20; TEMP 36.7–36.8; O2SAT 93–98; BMI 36.7
--- NOTE | ~2024-06-15 | MR_ITS ---
EXAMINATION: MR brain/brain stem wo/w con DATE: 06/16/2024 11:03 INDICATION: Global amnesia TECHNIQUE: Magnetic resonance imaging (MRI) of the brain and brainstem was performed without and with 20 mL ProHance intravenous contrast. Sequences included sagittal and axial T1-weighted SE, axial dif fusion-weighted FS SE, axial 3D SWAN, axial T2-weighted FLAIR, and axial T2-weighted FSE. Postcontras t axial and coronal T1-weighted SE was obtained. Apparent diffusion coefficient (ADC) maps were creat ed. COMPARISON: None. FINDINGS: There are no areas of restricted diffusion to suggest acute infarction. No intracranial hemorrhage or abnormal intracranial mass lesion. There are few scattered small foci of nonspecific increased T2-we ighted signal intensity in the cerebral white matter, predominantly involving the deep and periventri cular white matter which is within normal limits for age and likely sequela of chronic small vessel i schemic disease.. There are no intraparenchymal signal abnormalities seen on the other pulse sequence s. The ventricles are symmetric and normal in size. There are no abnormal extra-axial fluid collectio ns. Flow voids are seen in the cerebral arteries on the T2-weighted sequences consistent with their e xpected patency. Mild mucosal thickening the paranasal sinuses. Visualized orbits and soft tissues ar e unremarkable. There are no areas of abnormal enhancement on the post contrast images. IMPRESSION: 1. Normal aging brain with mild scattered white matter T2 hyperintensity consistent with chronic smal l vessel ischemic disease. No acute intracranial process or abnormally enhancing brain lesions. Reviewed, dictated and finalized at location A. IMPRESSION: 1. Normal aging brain with mild scattered white matter T2 hyperintensity consis tent with chronic small vessel ischemic disease. No acute intracranial process or abnormally enhancing brain lesions.
--- NOTE | ~2024-06-15 | XR_ITS ---
CHEST RADIOGRAPH CLINICAL HISTORY: Stroke symptoms . COMPARISON: 01/19/2023 TECHNIQUE: Single portable view of the chest. FINDINGS The cardiomediastinal silhouette is unremarkable. The lungs are clear. Visualized osseous structures and soft tissues are unremarkable. IMPRESSION: No focal infiltrate or effusion. Reviewed, dictated and finalized at location A.
--- NOTE | ~2024-06-15 | CT_ITS ---
CTA brain carotid Ordering provider: Arin Stevens MD History: . Stroke symptoms . Comparison: None Technique: CT angiogram head and neck was performed following timed intravenous injection of contrast . Thin slice axial images and reformatted coronal images were obtained. Three dimensional reformatted images of the brain were also obtained using a [employer] Only workstation. DLP: 2487 mGy-cm FINDINGS: HEAD: --ANTERIOR AND MIDDLE CEREBRAL ARTERIES AND BRANCHES: Normal caliber and contour. --INTERNAL CAROTID ARTERIES: Mild atheromatous disease but no significant stenosis. No occlusion. --BASILAR ARTERY AND BRANCHES: Normal caliber and contour. No significantly calcified atheromatous di sease. --POSTERIOR CEREBRAL ARTERIES: Normal caliber and contour --POSTERIOR COMMUNICATING ARTERIES: Not well visualized likely related to congenital absence or small size. --ANENone visualized.alized. --Please refer to report of CT head performed the same day.me day. --BONES AND SUPERFICIAL SOFT TIPlease refer to report of CT head performed the same day. e day. --PARANASAL SINUSES AND MASPlease refer to report of CT head done the same day. e day. NECK: --RIGHT CERVICAL CAROTID SYSTEM: Moderate atheromatous disease of the carotid bulb and proximal inter nal carotid artery.Percent stenosis per NASCET criteria Olya carotid dissection.ection. --LEFT CERVICAL CAROTID SYSTEM: Moderate atheromatous disease of the carotid bulb and proximal international marketing coordinator al carotid artery.Percent stenosis per NASCET criteria Olya carotid dissection.ection. --VERTEBRAL ART ENormal caliber and contour.ontour. --VISUALIZED AORTIC ARCH AND BRANCHING VEMild atheromatous disease but no significant stenosis.enosis . --SOFT TINormal. Unremarkable --CERVICAL Age appropriate degenerative changes.h es. IMPRESSION: Moderate calcified atheromatous disease. Percent stenosis per NASCET criteria on the right is 19%, and on the left is 33%. No large vessel occlusion. Reviewed, dictated and finalized at location A. IMPRESSION: Moderate calcified atheromatous disease. Percent stenosis per NASCET criteria on the right is 19%, and on the left is 33 %. No large vessel occlusion.
--- NOTE | ~2024-06-15 | CT_ITS ---
History: Code stroke PROCEDURE: CT head without contrast. COMPARISON: 06/12/2012 TECHNIQUE: Axial imaging of the head performed from the skull base to the vertex without IV contrast. Sagittal a nd coronal reformations obtained. DLP: 681 100 mGy-cm FINDINGS: The ventricles are normal in size, shape and position. There is no mass, mass effect or midline shift. There is no abnormal extra-axial fluid collection or intracranial hemorrhage. Visualized paranasal sinuses are clear. The mastoid air cells are well aerated. No acute displaced fractures within the overlying cranium. Impression: No acute intracranial hemorrhage or suspicious mass effect. These findings were discussed with Dr. Stevens at 6:00 PM on 06/15/2024 Reviewed, dictated and finalized at location A. Impression: No acute intracranial hemorrhage or suspicious mass effect. These findings were discussed with Dr. Stevens at 6:00 PM on 06/15/2024
--- NOTE | 2024-06-15 17:58 | ECG_ITS ---
Test Date: 2024-06-15 18:28:47 Measurements Intervals [place] Rate: 98 P: 48 GA: 192 QRS: -5 QRSD: 93 T: 51 QT: 356 QTc: 455 Interpretive Statements SINUS RHYTHM BASELINE ARTIFACT- I, II, III, AVR, AVL, AVF NORMAL ECG No previous ECG available for comparison Electronically Signed On 06-15-2024 20:25:45 CDT by Prosper Rahman D.O.
[2024-06-15 18:05] LABS: Basophils Absolute Auto 0.1 K/mm3 (0.0-0.1); Basophils Percent Auto 1.1 % (0.2-1.2); Eosinophils Absolute Auto 0.3 K/mm3 (0-0.3); Eosinophils Percent Auto 3.3 % (0-4.4); Hematocrit 46.2 % (42.0-52.0); Hemoglobin 16.4 g/dL (14.0-18.0); Immature Granulocyte Absolute 0.04 K/mm3 (0.00-0.031); Immature Granulocyte Percent A 0.5 % (0-0.5); Lymphocytes Percent Auto 22.6 % (18.3-44.2); Mean Corpuscular HGB Conc 35.5 g/dl (32-36); Mean Corpuscular Hemoglobin 31.9 pg (26-34); Mean Corpuscular Volume 89.9 fl (80-100); Mean Platelet Volume 8.3 fl (7.4-10.4); Monocytes Percent Auto 13.1 % (2.6-8.5); Neutrophils Absolute Auto 4.5 K/mm3 (1.3-6.7); Neutrophils Percent Auto 59.4 % (45.5-73.1); Platelet Count Result 272 k/mm3 (150-375); Red Blood Count 5.14 M/mm3 (4.6-6.20); Red Cell Distribution Width 13.2 % (11.5-14.5); White Blood Count 7.5 K/mm3 (4.5-10.0)
[2024-06-15 18:20] LABS: Alanine Aminotransferase 54 U/L (6-50); Albumin Level 4.7 g/dL (3.5-5.1); Alkaline Phosphatase 69 U/L (38-126); Anion Gap 13 mmol/L (4-12); Aspartate Amino Transferase 38 U/L (17-59); Bilirubin,Total 0.9 mg/dL (0.2-1.3); Blood Urea Nitrogen 24 mg/dL (9-20); Calcium 9.6 mg/dL (8.4-10.2); Carbon Dioxide 25 mmol/L (22-30); Chloride 103 mmol/L (98-107); Estimated Glomerular Filt Rate 59; Glucose 98 mg/dL (65-110); Potassium 3.9 mmol/L (3.4-5.0); Sodium 141 mmol/L (137-145)
[2024-06-15 18:25] LABS: Prothrombin Time 13.8 Seconds (11.1-14.7)
[2024-06-15 18:26] LABS: Partial Thromboplastin Time 26.5 Seconds (22.3-36.8)
[2024-06-15 18:32] LABS: Troponin I < 0.012 ng/mL (0.000-0.034)
--- NOTE | 2024-06-15 18:46 | ED_ITS ---
HPI - Neuro Symptoms/Deficit General Chief Complaint: Suspected CVA Stated Complaint: sensory loss to both legs, AMS Time Seen by Provider: 06/15/24 18:30 Source: patient, family and EMS Mode of arrival: EMS Limitations: no limitations History of Present Illness HPI Narrative: 68 years old white male came to the ED with confusion. Last time was seen at his normal baseline 3:00 p.m. today, at 5:00 p.m. noted that the patient confused per her does not remember what he of done today or any recent memory. The is telling me that patient was able to stand up and walk without any abnormalities, his speech was normal but he does not remember History of hypertension, asthma, cholecystectomy, appendectomy, gastric bypass currently on baby aspirin once a day Related Data Home Medications ?Medication ?Instructions ?Recorded ?Confirmed ?Last Taken ?Type metoprolol tartrate 25 mg tablet 12.5 mg PO BID 11/30/20 03/25/24 09/10/21 07:15 History tamsulosin 0.4 mg capsule (Flomax) 0.4 mg PO DAILY 02/01/24 03/25/24 Unknown History pantoprazole 20 mg tablet,delayed 20 mg PO QAM 02/22/24 03/25/24 Unknown History release Allergies Allergy/AdvReac Type Severity Reaction Status Date / Time ampicillin Allergy Mild RASH Verified 03/25/24 09:11 Penicillins Allergy Mild Rash Verified 03/25/24 09:11 tramadol Allergy Rash Verified 03/25/24 09:11 Review of Systems 2 Review of Systems: All systems reviewed & are unremarkable except as noted in HPI and below PMFSH Past Medical History Medical History Mass of left forearm appears to be lipoma ARI on CPAP Pneumonia due to COVID-19 virus Aortic valve regurgitation Osteoarthritis of left knee Benign essential HTN Hyperlipidemia Thoracic aortic aneurysm (TAA) Eczema Dilated aortic root Surgical History Surgical History History of arthroplasty of left knee April 29, 2021 Bariatric surgery status History of arthroscopy of left knee medial meniscectomy S/P excision of lipoma multiple Hx of cholecystectomy Hx of appendectomy History of rotator cuff surgery Family History Family History Mother , Glaucoma before diagnosed before passing. Glaucoma Father Family history of cardiovascular disease Grandparent Family history of cardiovascular disease Grandparent Breast cancer Sibling Heart attack Social History Social History Social History: Smoking status: Never smoker Second hand tobacco smoke exposure: No Additional smoking assessment comments: PT DENIES ALL FORMS OF TOBACCO USE Alcohol intake: never Substance use: never Substance use type: does not use Do You Feel Safe in your Home?: Yes Lack of Transportation: No Lack of Food: Never True Current Housing: I Have Housing Concerned About Future Housing: No Difficulty Paying Gas/Electric Bills: No Difficulty Paying for Meds: No Currently Unemployed: No Education: High School Diploma/GED Difficulty w/ Childcare or Family Care: No Living arrangements: with family Occupation/Education: retired Gender identity (if verbalized by the patient): Male Sexual Orientation (if Verbalized by the Patient): Straight or Heterosexual Spiritual care concerns: No Exam 2 Narrative: General appearance: Well-developed, well-nourished not in pain or distress, smiling and joking most of the time Skin: Normal color Head: Normocephalic, nontraumatic Eyes: Clear conjunctiva ENT: Oropharynx normal, ears normal, nose normal Neck: Supple, nontender Chest and respiratory: Airway patent, no respiratory distress, no accessory muscle use Heart: Regular rate/rhythm Abdomen: Soft, nontender, no organomegaly, quiet bowel sounds Vascular: Normal peripheral pulses, normal capillary refill. Musculoskeletal: Normal range of motion, nontender back Neurologic: Alert and oriented to his name only Course Vital Signs Vital signs: Vital Signs Temperature 36.7 C 06/15/24 18:21 Pulse Rate 97 06/15/24 18:21 Respiratory Rate 20 06/15/24 18:21 Blood Pressure 171/83 H 06/15/24 18:21 Pulse Oximetry 98 06/15/24 18:21 Oxygen Delivery Room Air 06/15/24 18:21 Temperature 36.7 C 06/15/24 18:21 Pulse Rate 96 06/15/24 18:45 Respiratory Rate 17 06/15/24 18:45 Blood Pressure 171/83 H 06/15/24 18:21 Pulse Oximetry 96 06/15/24 18:45 Oxygen Delivery Room Air 06/15/24 18:21 MDM - Neuro Symptoms/Deficit MDM Narrative Medical decision making narrative: Patient came to the ED with confusion noticed at 5:00 p.m., last time was at his baseline at 3:00 p.m.. Patient came to us at 6:00 p.m. which is 3 hours after last time was seen normal. Patient is asymptomatic but is telling me I feel confused. Vital signs showing blood pressure 171/83 otherwise within normal limit Physical examination showing the patient is oriented to his name only otherwise confused, not in pain or distress, no other neurologic abnormalities. Differential diagnosis include global amnesia, CVA, electrolyte imbalance, dehydration, stress, anxiety related symptoms Blood workup today include CBC, CMP, troponin, TSH showed no significant abnormalities CT head without contrast showed no acute abnormalities Chest x-ray showed no acute abnormalities CTA head and neck showed moderate calcified atheromatous disease, no large vessel occlusion, % stenosis per NASCET criteria on the right side is 19% on the on the left side is 33% Diagnosis global amnesia Admit to hospitalist, consult Dr. Burrows/neurologist. Differential Diagnosis Differential diagnosis: Likely other (As above) Medical Records Attestation: I reviewed the patient's medical records. Lab Data Attestation: I reviewed the patient's lab results. 06/15/24 18:00 06/15/24 18:00 Labs: Lab Results 06/15/24 Range/Units 18:00 WBC 7.5 (4.5-10.0) K/mm3 RBC 5.14 (4.6-6.20) M/mm3 Hgb 16.4 (14.0-18.0) g/dL Hct 46.2 (42.0-52.0) % MCV 89.9 (80-100) fl MCH 31.9 (26-34) pg MCHC 35.5 (32-36) g/dl RDW 13.2 (11.5-14.5) % Plt Count 272 (150-375) k/mm3 MPV 8.3 (7.4-10.4) fl Immature Gran % (Auto) 0.5 (0-0.5) % Neut % (Auto) 59.4 (45.5-73.1) % Lymph % (Auto) 22.6 (18.3-44.2) % Stephens % (Auto) 13.1 H (2.6-8.5) % Eos % (Auto) 3.3 (0-4.4) % Baso % (Auto) 1.1 (0.2-1.2) % Lymph # (Auto) 1.70 (0.9-3.2) K/mm3 Stephens # (Auto) 1.0 H (0.1-0.6) K/mm3 Eos # (Auto) 0.3 (0-0.3) K/mm3 Baso # (Auto) 0.1 (0.0-0.1) K/mm3 Abs Immat Gran (auto) 0.04 H (0.00-0.031) K/mm3 Absolute Neuts (auto) 4.5 (1.3-6.7) K/mm3 Absolute Nucleated RBC 0.000 (0.0-0.012) K/mm3 Nucleated RBC % 0.0 (0.0-0.2) % PT 13.8 (11.1-14.7) Seconds INR 1.0 APTT 26.5 (22.3-36.8) Seconds Sodium 141 (137-145) mmol/L Potassium 3.9 (3.4-5.0) mmol/L Chloride 103 (98-107) mmol/L Carbon Dioxide 25 (22-30) mmol/L Anion Gap 13 H (4-12) mmol/L BUN 24 H (9-20) mg/dL Creatinine 1.21 (0.7-1.3) mg/dL Estim Creat Clear Calc Not Reportable Estimated GFR 59 (59 - ) Glucose 98 (65-110) mg/dL Calcium 9.6 (8.4-10.2) mg/dL Total Bilirubin 0.9 (0.2-1.3) mg/dL AST 38 (17-59) U/L ALT 54 H (6-50) U/L Alkaline Phosphatase 69 (38-126) U/L Troponin I < 0.012 (0.000-0.034) ng/mL Total Protein 8.0 (6.3-8.2) g/dL Albumin 4.7 (3.5-5.1) g/dL Imaging Data Radiologist's impression: Impressions Head CT 06/15/24 18:07 Impression: No acute intracranial hemorrhage or suspicious mass effect. These findings were discussed with Dr. Stevens at 6:00 PM on 06/15/2024 Head/Neck CTA 06/15/24 18:46 IMPRESSION: Moderate calcified atheromatous disease. Percent stenosis per NASCET criteria on the right is 19%, and on the left is 33%. No large vessel occlusion. Discharge Plan Discharge Patient Disposition: Still a Patient Additional Instructions: Admit to hospital Patient Language: [place] Prescriptions: No Action tamsulosin [Flomax] 0.4 mg capsule 0.4 mg PO DAILY metoprolol tartrate 25 mg tablet 12.5 mg PO BID Trelegy Ellipta 200-62.5-25 mcg blister with device 1 inh inhalation DAILY Qty: 60 11RF Rx Instructions: Rinse mouth and spit after each use azithromycin 250 mg tablet See Rx Instructions PO .COMPLEX Qty: 6 0RF Rx Instructions: For 250 mg dose pack: take 500 mg today (day 1), then 250 mg for 4 days (days 2-5) PO methylprednisolone [Medrol (Cody)] 4 mg tablets,dose pack See Rx Instructions PO PER PKG DIR Qty: 21 0RF Rx Instructions: PO PER PKG DIR for 6 days codeine-guaifenesin 10-100 mg/5 mL liquid 5 ml PO Q6H Qty: 118 0RF clindamycin HCl 150 mg capsule 150 mg PO Q6H Qty: 10 0RF Rx Instructions: 2 tabs 1 hour before procedure aspirin [Children's Aspirin] 81 mg Tablet,Chewable 81 mg PO DAILY@0800 30 Days Qty: 30 0RF albuterol sulfate 2.5 mg /3 mL (0.083 %) solution for nebulization 2.5 mg inhalation Q4-6H PRN (Reason: shortness of breath or wheezing) Qty: 180 3RF atorvastatin 10 mg tablet See Rx Instructions .ROUTE .COMPLEX Qty: 100 2RF Dose Instruction: TAKE 1 TABLET BY MOUTH DAILY Rx Instructions: TAKE 1 TABLET BY MOUTH DAILY pantoprazole 20 mg tablet,delayed release (DR/EC) 20 mg PO QAM omeprazole 20 mg capsule,delayed release(DR/EC) 20 mg PO DAILY Qty: 90 1RF Rx Instructions: take 1 capsule daily on empty stomach and wait 15-30 minutes to eat or drink losartan-hydrochlorothiazide 50-12.5 mg tablet See Rx Instructions .ROUTE .COMPLEX Qty: 100 0RF Dose Instruction: TAKE 1 TABLET BY MOUTH IN THE MORNING Rx Instructions: TAKE 1 TABLET BY MOUTH IN THE MORNING albuterol sulfate 90 mcg/actuation HFA aerosol inhaler See Rx Instructions .ROUTE .COMPLEX Qty: 51 2RF Dose Instruction: USE 1 TO 2 INHALATIONS BY MOUTH EVERY 4 TO 6 HOURS NEEDED FOR SHORTNESS OF BREATH OR WHEEZING Rx Instructions: USE 1 TO 2 INHALATIONS BY MOUTH EVERY 4 TO 6 HOURS NEEDED FOR SHORTNESS OF BREATH OR WHEEZING Follow-up/Referrals: Demetri Bucio MD [Primary Care Provider] - Quality Stroke Scale Stroke Scale 1: Stroke scale date:: 06/15/24 1a Level of consciousness: alert-0 1b Level of consciousness questions: answers one correctly-1 1c Level of consciousness commands: obeys both correctly-0 2 Best gaze: normal-0 3 Visual: no visual loss-0 4 Facial palsy: normal-0 5a Motor: left arm: no drift-0 5b Motor: right arm: no drift-0 6a Motor: left leg: no drift-0 6b Motor: right leg: no drift-0 7 Limb ataxia: absent-0 8 Sensory: normal-0 9 Best language: no aphasia-0 10 Dysarthria: normal-0 11 Extinction and inattention: no abnormality-0 Level:: 1
--- OUTSIDE RECORDS SUMMARY | 2024-06-15 18:52 | XMS_ITS ---
Author Organization [facility] Address [address] [place] [address] Care Team Providers Care Adjuster Leader Name Role Phone Demetri Bucio MD Primary Care Provider Unavaila Edie Flores Unavailable [phone] Elidia Sainz Unavailable Unavailable Allergies Allergen (clinical drug ingredient) Drug/Non Drug Allergy documented on EMR Reaction Allergy Type Onset Date Status ampicillin Ampicillin rash Drug Allergy Activ e Penicillin rash Drug Allergy Active tramadol traMADol rash Drug Allergy Active Results Component Value Reference Range Notes -Vitamin D, 25-Hydroxy Reviewed date:06/14/2024 01:59:12 PM Interpretation:Normal Performing Lab:[facility], [address] [place] [id number], Phone - [phone], Director - PhDRicchibhartii Notes/Report: Vitamin D, 25-Hydroxy 51.7 30.0-100.0 ng/mL Vitamin D deficiency has been defined by the [place] of Medicine and an Endocrine Society practice guideline as a level of serum 25-OH vitamin D less than 20 ng/mL (1,2). The Endocrine Society went on to further define vitamin D insufficiency as a level between 21 and 29 ng/mL (2). 1. IOM ([place] of Medicine). 2010. Dietary reference intakes for calcium and D. [place]: The National Academies Press. 2. Aubrey OTERO, Graciela PEARSON, Rosemary AREVALO, et al. Evaluation, treatment, and prevention of vitamin D deficiency: an Endocrine Society clinical practice guideline. JCEM. 2010; 96(7):1911-30. Spirometry Reviewed date:05/26/2024 04:15:19 PM Interpretation:Abnormal - FVL Performing Lab: Notes/Report: Abnormal - FVL SpiroPreBronchodilator_FVC 3.53 SpiroPostBronchodilator_FEF2 5_7 5 0 SpiroPreBronchodilator_FEF25_75 1.76 SpiroPreBronchodilator_FEV1 2.52 SpiroPrecentPredictionPost_F EF2 5_75 0 SpiroPrecentPredictionPost_FEV1 0 SpiroPrecentPredictionPost_F EV1 _OVER_FVC 0 SpiroPrecentPredictionPost_FVC 0 SpiroPrecentPredictionPre_FE F25 _75 59.9 SpiroPrecentPredictionPre_FEV1 80 SpiroPrecentPredictionPre_FE V1_ OVER_FVC 92 SpiroPrecentPredictionPre_FVC 86.9 SpiroPredicted_FEF25_75 2.94 SpiroPreBronchodilator_FEV1_ OVE R_FVC 71.52 SpiroPreBronchodilator_PEF 5.46 SpiroPostBronchodilator_FVC 0 SpiroPostBronchodilator_FEV1 0 SpiroPostBronchodilator_FEV1 _OV ER_FVC 0 SpiroPostBronchodilator_PEF 0 SpiroPredicted_FVC 4.06 SpiroPredicted_FEV1 3.15 SpiroPredicted_FEV1_OVER_FVC 77.73 SpiroPredicted_PEF 7.55 REASON FOR VISIT Asthma follow-up: Stepped up to Trelegy from Symbicort in 04/2023. Managed by pulmonology. Has received antibiotics and OCS x 3 since 01/2023. Increased to high-dose Trelegy due to low ACT and frequent JAMILA use, however had to change to Wixela and Spiriva due to insurance, went back on Trelegy with overall improvement. Unfortunately has been off all inhalers x 4 weeks. ACT 20., ARC follow-up: on Singulair and Zyrtec daily. Now on SCIT at ., Historical hives with no known trigger for past several years - intermittent. CU Workup revealed TPO antibody level of 58. No interval hives., Historicalrashes triggered by scented soaps and lotions. Currently managed by dermatology., PIDD workup reveal ed low vit D (19.0) and inadequate s. pneumo protection (). Received [id number] in 06/2023, now protected. Repeat Vit D 44.1. Medications Medication SIG (Take, Route, Frequency, Duration) Notes Start Date End Date Status Triamcinolone Acetonide 0.1 % 1 application Externally Twice a day for 30 days 09/15/2023 Not-Taking Vitamin D3 125 MCG (5000 UT) 1 capsule Orally Once a day Active Famotidine 40 mg 1 tab(s) orally 30 mins prior to SCIT for 30 days Active EpiPen 2-Chacorta 0.3 mg as directed intramuscularly once for 30 days Active Tamsulosin HCl 0.4 MG 1 capsule Orally Once a day Active Trelegy Ellipta 200-62.5-25 MCG/ACT 1 puff Inhalation Once a day for 90 days 12/30/2023 Not-Taking SIT (CLUSTER) variable per schedule subcutaneous per schedule for 999 days Not-Taking Trelegy Ellipta 200 MCG-62.5 MCG-25 MCG/INH 1 PUFF(S) INHALED ONCE A DAY *Please review and pick correct strength-formula tion from [employer] options. If intended option is not shown, discontinue and re-order from Quick Search* Not-Taking Ipratropium Comstock 0.06 % 2 sprays in each nostril Nasally Three times a day for 30 days 11/10/2023 Not-Taking Vitamin D Not-Taking Wixela Inhub 500-50 MCG/ACT 1 puff Inhalation Twice a day for 30 days Active Spiriva Respimat 1.25 MCG/ACT 2 puffs Inhalation Once a day for 30 days Active EPIPEN 2-CHACORTA 0.3 mg as directed intramuscularly once for 30 days Active VITAMIN D3 1250 mcg 1 cap(s) orally once a week for 60 days Not-Taking SIT (Traditional) variable - see record per schedule subcutaneous per schedule for 999 days Active Cetirizine HCl 10 MG 1 tab(s) orally once a day for 30 days Active ALBUTEROL 90 mcg/inh 2 puff(s) inhaled every 6 hours Active CETIRIZINE 10 mg 1 tab(s) orally once a day for 30 days Active TRELEGY ELLIPTA 200 mcg-62.5 mcg-25 mcg/inh 1 puff(s) inhaled once a day Active FAMOTIDINE 40 mg 1 tab(s) orally 30 mins prior to SCIT for 30 days Active Albuterol Sulfate HFA 108 (90 Base) MCG/ACT 2 puff(s) inhaled every 6 hours Active Aspirin 81 MG 1 tab(s) orally once a day Active Vitamin D3 1250 MCG 1 CAP(S) ORALLY ONCE A WEEK for 60 DAYS *Please review and pick correct strength-formula tion from [employer] options. If intended option is not shown, discontinue and re-order from Quick Search* Active Albuterol Sulfate (2.5 MG/3ML) 0.083% 3 mL by nebulizer every 6 hours Active Fluticasone Propionate 50 MCG/ACT 2 sprays in each nostril Nasally once a day for 30 days 05/26/2024 Active Atorvastatin Calcium 10 MG 1 tab(s) orally once a day Active Omeprazole 20 MG 1 cap(s) orally once a day Active Clobetasol Propionate 0.05 % 1 minna applied topically 2 times a day Active Losartan Potassium-HCTZ 50-12.5 MG 1 tab(s) orally once a day Active Metoprolol Tartrate 25 MG 1 tab(s) orally 2 times a day Active dexAMETHasone 0.5 MG/5ML 10 mL orally 2 times a day Active Triamcinolone Acetonide 0.1 % 1 minna applied topically 3 times a day Active Social History Tobacco Use: Social History Observation Description Date Details (start date - stop date) Never Smoker NA - NA Tobacco Control (Standard) Question Answer Notes Tobacco use: Nonsmoker Vital Signs Blood pressure systolic 107 mm Hg 05/27/19 25 Blood pressure diastolic 66 mm Hg 025 Height 67 in 05/26/2024 Weight 239.4 lbs 05/26/2024 BMI 37.49 kg/m2 05/26/2024 Oximetry 97 % 05/26/2024 Encounters Encounter Location Date Provider Diagnosis [facility] [address] [facility] [address] [place] [id number] 05/26/2024 Edie Ford Moderate persistent asthma, uncomplicated J45.40 ; Dysphonia R49.0 ; Allergic rhinitis due to pollen J30.1 ; Allergic rhinitis due to animal (cat) (dog) hair and dander J30.81 ; Other allergic rhinitis J30.89 ; Shortness of breath R06.02 ; Personal history of pneumonia (recurrent) Z87.01 ; Chronic sinusitis, unspecified J32.9 ; Vitamin D deficiency, unspecified E55.9 ; Other urticaria L50.8 ; Rash and other nonspecific skin eruption R21 ; Other diseases of vocal cords J38.3 and Essential (primary) hypertension I10 Assessments Encounter Date Diagnosis (ICD Code) Assessment Notes Treatment Notes Treatment Clinical Notes Section Notes 05/26/2024 Moderate persistent asthma, uncomplicated (ICD-10 - J45.40) Currently managed by Pulmonology. Previously on Symbicort, but felt it was not doing anything regarding shortness of breath and dry cough so switched to Trelegy with noted improvement in shortness of breath. Per records, he was also treated with Doxycycline and steroids for diffuse wheezing. Records indicate eosinophil count 506 from 09/2022. He reports receiving 3 rounds of antibiotics and steroids for wheezing and coughing in the past year. He has not needed PO steroids since starting Trelegy. He was still reporting albuterol use 2-3 times per week, so increased to high dose with improvement in ACT and decrease in JAMILA use. Last spirometry showed normal FVC, FEV1%, FEV%. FVL shows scalloping on end-exhalation and inspiratory blunting. Normal lung age. Compared to 05/2023 spirometry, FVC increased by 110cc and FEV1 increased by 90cc. JAMILA use once every 2 weeks. ACT 20 today. Unfortunately, he has been off controller inhaler x 4 weeks due to OOP costs. - Per records, PFTs from 12/2022 show normal spirometry w/o evidence of obstruction or restriction. Normal total lung volume. FVC and FEV1 mildly decreased without obstructive or restrictive abnormality. Significant improvement after inhaling a single dose of albuterol. Normal diffusing capacity. - Given increased need for OCS and frequent JAMILA use, biologic workup ordered - Total IgE 634 and Abs eosinophil count 354. No need for OCS and decreased JAMILA use since starting Trelegy. - Given his propensity to flare - strongly urged him he needed to continue on a controller inhaler. [employer] program. Encouraged to talk to pharmacist and insurance. He verbalized understanding. Samples of Trelegy given in office. Will send refills out for Wixela and Spiriva. - Spirometry obtained today showing normal FVC, FEV1, FEV%. FVL shows scalloping on exhalation with reduced flow rates throughout. Inspiratory blunting noted. Advanced lung age. - Biologic workup showed Total IgE 634, Abs eosinophil count 354. - Continue JAMILA per pulmonology recommendations. - Consider VCD - see below. - Continue to treat atopy as stated above. - Follow-up with pulmonology - saw in 01/2024 with no changes. Slated to see in 07/2023 for 6-month evaluation. Recommend PFTs as his last PFTs were in 12/2022. - Follow-up in 3-4 months for further evaluation and management 05/26/2024 Dysphonia (ICD-10 - R49.0) Romario reports intermittent hoarseness that has been more pronounced over the past 3 weeks. He has been on Trelegy for some time, denies any medication changes and continues to brush teeth after Treelgy inhalation. - Previously recommend he speak with PCP re: this issue for further workup. He verbalized understanding. - No interval issues since last visit. 05/26/2024 Allergic rhinitis due to pollen (ICD-10 - J30.1) Romario clearly suffers from atopic disease based upon our skin testing and history. Accordingly, we have encouraged his medication regimen, discussed nasal washes and allergy-specific avoidance measures. We also discussed adjunctive therapies including subcutaneous, specific allergen immunotherapy as relates to the treatment and prevention of atopic disease.Today, reporting nasal congestion at night. Otherwise, has no complaints. - SCIT received 2 days ago and tolerated well. - Continue medications as listed above. Continue premedication with Zyrtec and Pepcid. Will trial Flonase 1-2 sprays each nostril nightly for c/o nasal congestion. - AIE up to date. Patient was instructed that epinephrine needs to be carried to each immunotherapy visit and should be carried 2 hrs after dosing. - Follow-up in 4 weeks for SCIT, 3 months for E&M 05/26/2024 Allergic rhinitis due to animal (cat) (dog) hair and dander (ICD-10 - J30.81) Follow allergen avoidance, meds and continue SCIT as an adjunctive treatment to current regimen. 05/26/2024 Other allergic rhinitis (ICD-10 - J30.89) Follow allergen avoidance, meds and continue SCIT as an adjunctive treatment to current regimen. 05/26/2024 Shortness of breath (ICD-10 - R06.02) - Consider VCD given inspiratory blunting on initial spirometry and prior subjective reports of SOB on inhalation. See below. 05/26/2024 Personal history of pneumonia (recurrent) (ICD-10 - Z87.01) Patient reports 2-3 respiratory infections per year, requiring antibiotics and PO steroids. He has received antibiotics and OCS x 3 since 01/2023. Given recurrent infections, he meets the F criteria for modified PIDD workup. Covid-19 PNA diagnosis in 2020, found on Chest CT. Workup revealed inadequate s.pneumo protection () and low vitamin D. - [id number] received in 06/2023 with repeat titers showin adequate protection () and normal Vit D. - Monitor for infection reoccurence. No interval infections. 05/26/2024 Chronic sinusitis, unspecified (ICD-10 - J32.9) See plan above. Frequent sinus infections requiring antibiotics and OCS. Reports sinus surgery in . 05/26/2024 Vitamin D deficiency, unspecified (ICD-10 - E55.9) Prior Vit D level 19.0, supplement with 50,000IU weekly x 8 weeks followed by 5,000IU daily x 4 weeks. - Most recent Vit D level 44.1. Plan to continue 5,000IU daily. Will recheck now. Lab ordered and printed handout given to patient. 05/26/2024 Other urticaria (ICD-10 - L50.8) Romario reports a history of intermittent hives for the past several years. He reports waking up last night with hive on back of leg this AM, first one in months. It has resolved by time of appointment. They appear at random, without known triggers. Described as intense itching. History, presentation, and timeframe of symptoms > 6 weeks c/w chronic idiopathic urticaria. Symptoms resolve within 24 hours. Denies associated angioedema. Denies NSAID use, alcohol, opioid use. - Continues to report no interval episodes. - Labortatory workup for futher evaluation showed - TPO Ab level 58. All other labs WNL. Forwarded results to PCP. - Encouraged to take pictures and journal for triggers. - Consider nightly Zyrtec and Pepcid BID as patient reports sedating effects with Zyrtec and Albertina. - Consider Xolair - Follow-up as above 05/26/2024 Rash and other nonspecific skin eruption (ICD-10 - R21) Romario reports historical rashes on his skin, often triggered by scented products. He uses all scent-free and dye-free products. He is currently managed by hog cooler Dr. Escobar for contact dermatitis. - Continue management per dermatology - reports no interval episodes. - Recommend continuation of scent-free and dye-free products. - Encouraged to take pictures. 05/26/2024 Other diseases of vocal cords (ICD-10 - J38.3) Subjective reports of inspiratory SOB and inspiratory blunting on spirometry concerning for VCD. - VCD handout given at prior appointment. Encouraged to attempt exercises next time he is SOB. - Consider referral to speech therapy. 05/26/2024 Essential (primary) hypertension (ICD-10 - I10) BP WNL today. Continue serial checks and follow-up with PCP 05/26/2024 Other Plan Of Treatment Medication Medication Name Sig Start Date Stop Date Notes Wixela Inhub 500-50 MCG/ACT 1 puff Inhal ation Twice a day for 30 days Spiriva Respimat 1.25 MCG/ACT 2 puffs Inhalation Once a day for 30 days EPIPEN 2-CHACORTA 0.3 mg as directed intramus cularly once for 30 days SIT (Traditional) variable - see record per schedule subcutaneous per schedule for 999 days ALBUTEROL 90 mcg/inh 2 puff(s) inhaled every 6 hours CETIRIZINE 10 mg 1 tab(s) orally once a day for 30 days TRELEGY ELLIPTA 200 mcg-62.5 mcg-25 mcg/inh 1 puff(s) inhaled once a day FAMOTIDINE 40 mg 1 tab(s) orally 30 m ins prior to SCIT for 30 days Fluticasone Propionate 50 MCG/ACT 2 sprays in each nostril Nasally once a day for 30 days 05/26/2024 Treatment Notes Assessment Notes Moderate persistent asthma, uncomplicate d Currently managed by Pulmonology. Previously on Symbicort, but felt it was not doing anything regarding shortness of breath and dry cough so switched to Trelegy with noted improvement in shortness of breath. Per records, he was also treated with Doxycycline and steroids for diffuse wheezing. Records indicate eosinophil count 506 from 09/2022. He reports receiving 3 rounds of antibiotics and steroids for wheezing and coughing in the past year. He has not needed PO steroids since starting Trelegy. He was still reporting albuterol use 2-3 times per week, so increased to high dose with improvement in ACT and decrease in JAMILA use. Last spirometry showed normal FVC, FEV1%, FEV%. FVL shows scalloping on end-exhalation and inspiratory blunting. Normal lung age. Compared to 05/2023 spirometry, FVC increased by 110cc and FEV1 increased by 90cc. JAMILA use once every 2 weeks. ACT 20 today. Unfortunately, he has been off controller inhaler x 4 weeks due to OOP costs. - Per records, PFTs from 12/2022 show normal spirometry w/o evidence of obstruction or restriction. Normal total lung volume. FVC and FEV1 mildly decreased without obstructive or restrictive abnormality. Significant improvement after inhaling a single dose of albuterol. Normal diffusing capacity. - Given increased need for OCS and frequent JAMILA use, biologic workup ordered - Total IgE 634 and Abs eosinophil count 354. No need for OCS and decreased JAMILA use since starting Trelegy. - Given his propensity to flare - strongly urged him he needed to continue on a controller inhaler. CO[employer]ider [employer] Drug program. Encouraged to talk to pharmacist and insurance. He verbalized understanding. Samples of Trelegy given in office. Will send refills out for Wixela and Spiriva. - Spirometry obtained today showing normal FVC, FEV1, FEV%. FVL shows scalloping on exhalation with reduced flow rates throughout. Inspiratory blunting noted. Advanced lung age. - Biologic workup showed Total IgE 634, Abs eosinophil count 354. - Continue JAIMLA per pulmonology recommendations. - Consider VCD - see below. - Continue to treat atopy as stated above. - Follow-up with pulmonology - saw in 01/2024 with no changes. Slated to see in 07/2023 for 6-month evaluation. Recommend PFTs as his last PFTs were in 12/2022. - Follow-up in 3-4 months for further evaluation and management Dysphonia Romario reports intermittent hoarseness that has been more pronounced over the past 3 weeks. He has been on Trelegy for some time, denies any medication changes and continues to brush teeth after Treelgy inhalation. - Previously recommend he speak with PCP re: this issue for further workup. He verbalized understanding. - No interval issues since last visit. Allergic rhinitis due to pollen Romario clearly suffers from atopic disease based upon our skin testing and history. Accordingly, we have encouraged his medication regimen, discussed nasal washes and allergy-specific avoidance measures. We also discussed adjunctive therapies including subcutaneous, specific allergen immunotherapy as relates to the treatment and prevention of atopic disease.Today, reporting nasal congestion at night. Otherwise, has no complaints. - SCIT received 2 days ago and tolerated well. - Continue medications as listed above. Continue premedication with Zyrtec and Pepcid. Will trial Flonase 1-2 sprays each nostril nightly for c/o nasal congestion. - AIE up to date. Patient was instructed that epinephrine needs to be carried to each immunotherapy visit and should be carried 2 hrs after dosing. - Follow-up in 4 weeks for SCIT, 3 months for E&M Allergic rhinitis due to ani mal (cat) (dog) hair and dander Follow allergen avoidance, meds and continue SCIT as an adjunctive treatment to current regimen. Other allergic rhinitis Follow allergen avoidance, meds and continue SCIT as an adjunctive treatment to current regimen. Shortness of breath - Consider VCD given inspiratory blunting on initial spirometry and prior subjective reports of SOB on inhalation. See below. Personal history of pneumonia (recurrent ) Patient reports 2-3 respiratory infections per year, requiring antibiotics and PO steroids. He has received antibiotics and OCS x 3 since 01/2023. Given recurrent infections, he meets the JMF criteria for modified PIDD workup. Covid-19 PNA diagnosis in 2020, found on Chest CT. Workup revealed inadequate s.pneumo protection () and low vitamin D. - [id number] received in 06/2023 with repeat titers showin adequate protection () and normal Vit D. - Monitor for infection reoccurence. No interval infections. Chronic sinusitis, unspecified See plan above. Frequent sinus infections requiring antibiotics and OCS. Reports sinus surgery in . Vitamin D deficiency, unspecified Prior Vit D level 19.0, supplement with 50,000IU weekly x 8 weeks followed by 5,000IU daily x 4 weeks. - Most recent Vit D level 44.1. Plan to continue 5,000IU daily. Will recheck now. Lab ordered and printed handout given to patient. Other urticaria Romario reports a history of intermittent hives for the past several years. He reports waking up last night with hive on back of leg this AM, first one in months. It has resolved by time of appointment. They appear at random, without known triggers. Described as intense itching. History, presentation, and timeframe of symptoms > 6 weeks c/w chronic idiopathic urticaria. Symptoms resolve within 24 hours. Denies associated angioedema. Denies NSAID use, alcohol, opioid use. - Continues to report no interval episodes. - Labortatory workup for futher evaluation showed - TPO Ab level 58. All other labs WNL. Forwarded results to PCP. - Encouraged to take pictures and journal for triggers. - Consider nightly Zyrtec and Pepcid BID as patient reports sedating effects with Zyrtec and Albertina. - Consider Xolair - Follow-up as above Rash and other nonspecific skin eruption Romario reports historical rashes on his skin, often triggered by scented products. He uses all scent-free and dye-free products. He is currently managed by hog cooler Dr. Escobar for contact dermatitis. - Continue management per dermatology - reports no interval episodes. - Recommend continuation of scent-free and dye-free products. - Encouraged to take pictures. Other diseases of vocal cords Subjective reports of inspiratory SOB and inspiratory blunting on spirometry concerning for VCD. - VCD handout given at prior appointment. Encouraged to attempt exercises next time he is SOB. - Consider referral to speech therapy. Essential (primary) hypertension BP WNL today. Continue serial checks and follow-up with PCP Next Appt Details Follow Up: 4 Weeks,3 Months, Reason: SCIT,Evaluation and Management Provider Name:Declan France , 06/21/2024 03:00:00 PM, [address], [place], [address], Provider Name:Declan France , 07/19/2024 01:00:00 PM, [address], [address], [place], [address], Provider Name:Declan France , 08/16/2024 01:00:00 PM, [address], [address], [place], [address], Procedure Notes * Category Sub-Category Detail Notes Flow-Volume Loop/Spirometry/Spirometry Challenge Interpretation Normal FVC, FEV1, FEV%. FVL shows scalloping on exhalation with reduced flow rates throughout. Inspiratory blunting noted. Advanced lung age. Progress Notes * Romario JESSICADOB:1955 (68 yo M)Acc No.[id number]:05/26/2024 Progress Notes Patient: Romario LYNN Provider: SEBASTIAN Hatch :1955 A ge:68 Y S ex:Male Date:05/26/2024 Address:[address] [place] [address], [facility] Pcp:Demetri Bucio MD Subjective: * Chief Complaints: * A sthma follow-up: Stepped up to Trelegy from Symbicort in 04/2023. Managed by pulmonology. Has received antibiotics and OCS x 3 since 01/2023. Increased to high-dose Trelegy due to low ACT and frequent JAMILA use, however had to change to Wixela and Spiriva due to insurance, went back on Trelegy with overall improvement. Unfortunately has been off all inhalers x 4 weeks. ACT 20.BANNER follow-up: on Singulair and Zyrtec daily. Now on SCIT at .Historical hives with no known trigger for past several years - intermittent. CU Workup revealed TPO antibody level of 58. No interval hives.Historical rashes triggered by scented soaps and lotions. Currently managed by dermatology.PIDD workup revealed low vit D (19.0) and inadequate s. pneumo protection (). Received [id number] in 06/2023, now protected. Repeat Vit D 44.1. * HPI: * Introduction: I had the pleasure of seeing Regina Jessica, a 68-year-old male with a past medical history of asthma, aortic valve regurgitation, TAA, HTN, hyperlipidemia, ARI who returns in consultation with DILMA Loredo for interval evaluation and management. He is alone for today's visit. He was last evaluted in 01/2024. He is wearing a boot on left foot due to heel spur, potentially causing odalis-tears in achilles tendon. Lisa frankRomario reports he has been doing well since last visit. ACT 20 with JAMILA use once every 2 weeks. Unfortunately, Aaron reports he has stopped his Trelegy for past 4 weeks due to high OOP costs. He continues on SCIT and is tolerating well. Previously reported intermittent hoarseness, but has had no interval episodes. Today, reporting nasal congestion specifically at night. Has not attempted nasal sprays or washes. Romario was evaluated by pulmonology on 04/24/23, felt Symbicort was not doing anything in regard to shortness of breath and dry cough so switched to Trelegy with noted improvement in shortness of breath. Per records, he was also treated with PO antibiotics and steroids for diffuse wheezing. Records indicate eosinophil count 506 from 09/2022. Recent PFTs from 12/2022 showed no obstruction or restriction. He reports receiving 2 rounds of antibiotics and steroids for wheezing and coughing in 01/2023 and 02/2023. He has not needed PO steroids since starting Trelegy, though was still reporting albuterol use 2-3 times per week, specifically for SOB on inhalation so Trelegy increased to high dose. Romario reported benefit, though was switched to Wixela and Spiriva due to insurance issues. He the went back o n Trelegy with improvement. Unfortunately, off all controller inahlers x 4 weeks. Romario admits to sneezing and rhinorrhea almost year round. Aeroallergen skin testing was completed at first visit, and was positive to multiple seasonal and perennial allergens.Current treatment consists of Montelukast and continues on SCIT. Figueroa crain is tolerating well without LLR. He is premedicating with Zyrtec and Pepcid. Occasionally will take Zyrtec or Albertina with improvement in symptoms, but does make him drowsy. He has attempted Azelastine. He was previously allergy tested years ago by Dr. Asencio. Started allergy immunotherapy under Dr. Asencio but reported minimal improvement in symptoms. He reports sinus surgery in the , previously had recurrent sinus infections. Modified PIDD workup revealed low vit D (19.0) and inadequate s. pneumo (). He received [id number] with now adequate protection () and now normal Vit D level (44.1) He is currently followed by Dr. Sinclair's practice for cardiology for dilated aortic root and aortic valve regurgitation. Romario reports a history of intermittent hives for the past several years. No interval hives or swelling. They appear at random, without known triggers. Symptoms resolve within 24 hours. Denies associated angioedema. Denies NSAID use, alcohol, opioid use. CU workup revealed normal TSH, TPO antibody level of 58. He also reports rashes on his skin, often triggered by scents and fragrances. He reports he uses all scent-free and dye-free products. He is currently managed by hog cooler Dr. Silva for contact dermatitis.He has a history of Covid-19 PNA in [address], was on steroids and Breztri during that time. 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 Last OCS use for tendonitis of left foot in 05/2023. Today, he reports no fevers, chills, night sweats or other constitutional symptoms. * ROS: A LLERGY: Positive p er the HPI and history, otherwise unremarkable.?runny nose Y es. s cratchy throat Y es. e ar fullness Y es. s inus congestion Y es. S PECIAL SENSES: Positve for n one. c ataracts Y es. i tching in ears Y es. d ry eyes Y es. C ONSTITUTIONAL: Positive for n one. E NT: cough Y es. h earing loss Y es. r inging in ears Y es. s inus pain Y es. P ositive p er the HPI and history, otherwise unremarkable. R ESPIRATORY: cough Y es. P ositive p er the HPI and history, otherwise unremakable. O PHTHALMOLOGY: Positive for p er the HPI and history, otherwise unremarkable. E NDOCRINOLOGY: Positive for n one. C ARDIOLOGY: chest pain N o. l eg edema Y es. s hortness of breath Y es. P ositive for n one. G ASTROENTEROLOGY: hemorrhoids Y es. P ositive for n one. ? U ROLOGY: Positive for n one. D ERMATOLOGY: mole Y es. d ry or sensitive skin Y es. h tashi (urticaria) Y es. P ositive for p er the HPI and history, otherwise unremakable. ? N EUROLOGY: Positive for n one. H EMATOLOGY/LYMPH: Positive for n one. M USCULOSKELETAL: carpal tunnel Y es. P ositive for n one. P SYCHOLOGY: Positive for n one. M DEMETRIUS REPRODUCTIVE: difficulty with erection Y es. d iminished sexual drive?Yes. A ll other review of systems per the HPI and history, otherwise unremarkable. * Medical History: * Surgical History: A ppendectomy 08/29/1968Vasectomy 05/23/1985Carpal Tunnel 09/01/2005Carpal Tunnel 11/24/2005Gastric Sleeve 12/23/2012Partial left knee 04/29/2022 * Hospitalization/Major Diagno stic Procedure: s ee surgery hx * Family History: F ather: , No. M other: , No. P aternal Grand Father: No. P aternal Grand Mother: No. M aternal Grand Father: No. M aternal Grand Mother: No. S iblings: Yes. C hildren: Yes. 1 brother(s) , 3 sister(s) . 2 son(s) , 1 daughter(s) - healthy. . father- heart valve replacement, mother- glucoma, patneral grandfather- heart isses/enlarged heart, paternal grandma- breast cancer, middle sister heart issue, youngest sister- diabetic. * Social History: M arital Status What is your marital status? m arried A lcohol Screening Do you ever drink alcoholic beverages? N o S moking Have you ever smoked tobacco: n ever smoked Are you a : n ever smoker R ecreational drug use Have you ever used recreational drugs? N o D etails on consumption of certain products? Do you regularly consume products with aspartame; Equal or NutraSweet? N o Do you regularly consume products with artificial coloring??No Have you ever noticed worsening of your rash with these food items? N o E xercise What kind(s) of exercise do you perform regularly? w alking How often do you perform this exercise? w eekly A re any of the following personal care products containing fragrance, dye or preservatives used regularly? Shampoo: N o Conditioner: N o Soap: N o Laundry Detergent: N o Fabric Softener: N o Deodorant: N o Perfume, cologne, after shave: Y es Air freshners or other scented products: Y es Hair coloring dyes or rinses: N o Other: N o O ccupation Are you currenly employed? N o Have you ever worked in any of the following: f [email or web address] Have you had any job with high exposure to fumes, chemicals, dust or other noxious substances? Y es Are you currently a student? N o E nvironmental History Living environment: p rivate home Where is the home located? c [place] Age of home: 5 0 How long have you lived there? 5 years or more How many people live in the home? 2 H ome description Basement: N o Any water damage in basement? N o Smokers in the home? N o Smokers outside the home? N o Air Conditioning? Y es Central Air? Y es Forced air heating? Y es Gas or electric? g as Fireplace? N o Wood burning stove? N o Do you vacuum the home? Y es Air purification systems? N o Pillow and mattress dust-proof encasings? Y es Do you use a humidifier? N o Do you own any pets? N o Fabric softeners used? N o Plants in the home? N o Is there carpeting in your bedroom? N o Do you have slfh-er-aatn carpeting? N o What is the age of your mattress (years)? 8 What material(s) are used to manufacture your bedding and pillow? s ynthetic What is the age of your pillow (years)? 1 What material are your bedding items made of? s ynthetic Do you sleep with quilts or blankets or a duvet? N o T obacco Control (Standard) Tobacco use: N onsmoker * Medications: T akingVitamin D3 125 MCG (5000 UT) Capsule 1 capsule Orally Once a day EpiPen 2- Chacorta 0.3 mg kit as directed intramuscularly once Famotidine 40 mg tablet 1 tab(s) orally 30 mins prior to SCIT Tamsulosin HCl 0.4 MG Capsule 1 capsule Orally Once a day Triamcinolone Acetonide 0.1 % Ointment 1 minna applied topically 3 times a day dexAMETHasone 0.5 MG/5ML Solution 10 mL orally 2 times a day Clobetasol Propionate 0.05 % Cream 1 minna applied topically 2 times a day Omeprazole 20 MG Capsule Delayed Release 1 cap(s) orally once a day Metoprolol Tartrate 25 MG Tablet 1 tab(s) orally 2 times a day Losartan Potassium-HCTZ 50-12.5 MG Tablet 1 tab(s) orally once a day Atorvastatin Calcium 10 MG Tablet 1 tab(s) orally once a day Aspirin 81 MG Tablet Delayed Release 1 tab(s) orally once a day Albuterol Sulfate (2.5 MG/3ML) 0.083% Nebulization Solution 3 mL by nebulizer every 6 hours Vitamin D3 1250 MCG CAPSULE 1 CAP(S) ORALLY ONCE A WEEK , Notes to Pharmacist: *Please review and pick correct strength-formulation from [employer] options. If intended option is not shown, discontinue and re-order from Quick Search*Albuterol Sulfate HFA 108 (90 Base) MCG/ACT Aerosol Solution 2 puff(s) inhaled every 6 hours Cetirizine HCl 10 MG Tablet 1 tab(s) orally once a day SIT (Traditional) variable - see record variable - see record per schedule subcutaneous per schedule Taking Vitamin D3 125 MCG (5000 UT) Capsule 1 capsule Orally Once a day Taking EpiPen 2-Chacorta 0.3 mg kit as directed intramuscularly once Taking Famotidine 40 mg tablet 1 tab(s) orally 30 mins prior to SCIT Taking Tamsulosin HCl 0.4 MG Capsule 1 capsule Orally Once a day Taking Triamcinolone Acetonide 0.1 % Ointment 1 minna applied topically 3 times a day Taking dexAMETHasone 0.5 MG/5ML Solution 10 mL orally 2 times a day Taking Clobetasol Propionate 0.05 % Cream 1 minna applied topically 2 times a day Taking Omeprazole 20 MG Capsule Delayed Release 1 cap(s) orally once a day Taking Metoprolol Tartrate 25 MG Tablet 1 tab(s) orally 2 times a day Taking Losartan Potassium-HCTZ 50-12.5 MG Tablet 1 tab(s) orally once a day Taking Atorvastatin Calcium 10 MG Tablet 1 tab(s) orally once a day Taking Aspirin 81 MG Tablet Delayed Release 1 tab(s) orally once a day Taking Albuterol Sulfate (2.5 MG/3ML) 0.083% Nebulization Solution 3 mL by nebulizer every 6 hours Taking Vitamin D3 1250 MCG CAPSULE 1 CAP(S) ORALLY ONCE A WEEK , Notes to Pharmacist: *Please review and pick correct strength-formulation from [employer] options. If intended option is not shown, discontinue and re-order from Quick Search*Taking Albuterol Sulfate HFA 108 (90 Base) MCG/ACT Aerosol Solution 2 puff(s) inhaled every 6 hours Taking Cetirizine HCl 10 MG Tablet 1 tab(s) orally once a day Taking SIT (Traditional) variable - see record variable - see record per schedule subcutaneous per schedule Not-Taking/PRNFamotidine 40 mg tablet 1 tab(s) orally 30 mins prior to SCIT VITAMIN D3 1250 mcg capsule 1 cap(s) orally once a week TRELEGY ELLIPTA 200 mcg-62.5 mcg-25 mcg/inh powder 1 puff(s) inhaled once a day ALBUTEROL 90 mcg/inh aerosol 2 puff(s) inhaled every 6 hours CETIRIZINE 10 mg tablet 1 tab(s) orally once a day Wixela Inhub 500-50 MCG/ACT Aerosol Powder Breath Activated 1 puff Inhalation Twice a day Spiriva Respimat 1.25 MCG/ACT Aerosol Solution 2 puffs Inhalation Once a day Trelegy Ellipta 200-62.5-25 MCG/ACT Aerosol Powder Breath Activated 1 puff Inhalation Once a day SIT (CLUSTER) variable see record per schedule subcutaneous per schedule Vitamin D Trelegy Ellipta 200 MCG-62.5 MCG-25 MCG/INH POWDER 1 PUFF(S) INHALED ONCE A DAY , Notes to Pharmacist: *Please review and pick correct strength-formulation from [employer] options. If intended option is not shown, discontinue and re-order from Quick Search*Ipratropium Comstock 0.06 % Solution 2 sprays in each nostril Nasally Three times a day Triamcinolone Acetonide 0.1 % Ointment 1 application Externally Twice a day Medication List reviewed and reconciled with the patientNot-Taking/PRN Famotidine 40 mg tablet 1 tab(s) orally 30 mins prior to SCIT Not-Taking/PRN VITAMIN D3 1250 mcg capsule 1 cap(s) orally once a week Not-Taking/PRN TRELEGY ELLIPTA 200 mcg-62.5 mcg-25 mcg/inh powder 1 puff(s) inhaled once a day Not-Taking/PRN ALBUTEROL 90 mcg/inh aerosol 2 puff(s) inhaled every 6 hours Not-Taking/PRN CETIRIZINE 10 mg tablet 1 tab(s) orally once a day Not-Taking/PRN Wixela Inhub 500-50 MCG/ACT Aerosol Powder Breath Activated 1 puff Inhalation Twice a day Not-Taking/PRN Spiriva Respimat 1.25 MCG/ACT Aerosol Solution 2 puffs Inhalation Once a day Not-Taking/PRN Trelegy Ellipta 200-62.5-25 MCG/ACT Aerosol Powder Breath Activated 1 puff Inhalation Once a day Not-Taking/PRN SIT (CLUSTER) variable see record per schedule subcutaneous per schedule Not- Taking/PRN Vitamin D Not-Taking/PRN Trelegy Ellipta 200 MCG-62.5 MCG-25 MCG/INH POWDER 1 PUFF(S) INHALED ONCE A DAY , Notes to Pharmacist: *Please review and pick correct strength-formulation from [employer] options. If intended option is not shown, discontinue and re-order from Quick Search*Not-Taking/PRN Ipratropium Comstock 0.06 % Solution 2 sprays in each nostril Nasally Three times a day Not-Taking/PRN Triamcinolone Acetonide 0.1 % Ointment 1 application Externally Twice a day Medication List reviewed and reconciled with the patient * Allergies: P enicillin: rashAmpicillin: rashtraMADol: rashno[Allergies Verified] Objective: * Vitals: B P:107/66mm Hg, HR:74/min, Pulse Oximetry:97%, ACT:20, Ht: 67 in, Wt: 239.4 lbs, BMI:37.49Index. * Examination: G eneral examination: General appearance: p leasant, well-developed, well-nourished, male, i n no apparent distress, speaking in full sentences. HEENT: c onjunctiva are normal bilaterally, TMs without evidence of acute infection, p osterior oropharynx is clear without exudates, erythema on pharyngeal wall, no exudates, no tongue swelling, and uvula is midline. Oral cavity: n ormal, no lesions. Breasts : n ot performed. Heart: R RR, S1-S2, no murmurs, no rubs, no gallops. Lungs: c lear to auscultation in all lung wang, no wheezes, no crackles, no rhonchi. Neurologic exam: u nremarkable. Skin: n ormal, no visible rash, dermatographism, urticaria, angioedema. Back: n ormal. Extremities: n ormal ROM, no clubbing, no cyanosis, no edema. Genitalia: n ot performed. Assessment: * Assessment: 1. M oderate persistent asthma, uncomplicated - J45.40 (Primary) 2 . D ysphonia - R49.0 3 . A llergic rhinitis due to pollen - J30.1 4 .?Allergic rhinitis due to animal (cat) (dog) hair and dander - J30.81 5 . O ther allergic rhinitis - J30.89 6 . S hortness of breath - R06.02 7 . P ersonal history of pneumonia (recurrent) - Z87.01 8 . C hronic sinusitis, unspecified - J32.9 9 . V itamin D deficiency, unspecified - E55.9 & #160; 1 0. O ther urticaria - L50.8 1 1. R lidia and other nonspecific skin eruption - R21 1 2. O ther diseases of vocal cords - J38.3 1 3.?Essential (primary) hypertension - I10 Plan: * Treatment: Value Reference Range S piroPreBronchodilator_FVC 3.53 * S piroPreBronchodilator_FEF25_75 1.76 * S piroPreBronchodilator_FEV1 2.52 * S piroPrecentPredictionPre_FEF25_75 59.9 * S piroPrecentPredictionPre_FEV1 80 * S piroPrecentPredictionPre_FEV1_OVER_FVC 92 * S piroPrecentPredictionPre_FVC 86.9 * S piroPredicted_FEF25_75 2.94 * S piroPreBronchodilator_FEV1_OVER_FVC 71.52 * S piroPreBronchodilator_PEF 5.46 * S piroPredicted_FVC 4.06 * S piroPredicted_FEV1 3.15 * S piroPredicted_FEV1_OVER_FVC 77.73 * S piroPredicted_PEF 7.55 * Edie Ford 5 04:13:47 PM CDT > Normal FVC, FEV1, FEV%. FVL shows scalloping on exhalation with reduced flow rates throughout. Inspiratory blunting noted. Advanced lung age. Notes:Currently managed by Pulmonology. Previously on Symbicort, but felt it was not doing anything regarding shortness of breath and dry cough so switched to Trelegy with noted improvement in shortness ofbreath. Per records, he was also treated with Doxycycline and steroids for diffuse wheezing. Records indicate eosinophil count 506 from 09/2022. He reports receiving 3 rounds of antibiotics and steroids for wheezing and coughing in the past year. He has not needed PO steroids since starting Trelegy.He was still reporting albuterol use 2-3 times per week, so increased to high dose with improvementin ACT and decrease in JAMILA use. Last spirometry showed normal FVC, FEV1%, FEV%. FVL shows scalloping on end-exhalation and inspiratory blunting. Normal lung age. Compared to 05/2023 spirometry, FVC increased by 110cc and FEV1 increased by 90cc. JAMILA use once every 2 weeks. ACT 20 today. Unfortunately, he has been off controller inhaler x 4 weeks due to OOP costs. - Per records, PFTs from 12/2022 show normal spirometry w/o evidence of obstruction or restriction.Normal total lung volume. FVC and FEV1 mildly decreased without obstructive or restrictive abnormality. Significant improvement after inhaling a single dose of albuterol. Normal diffusing capacity. - Given increased need for OCS and frequent JAMILA use, biologic workup ordered - Total IgE 634 and Abs eosinophil count 354. No need for OCS and decreased JAMILA use since starting Trelegy. - Given his propensity to flare - strongly urged him he needed to continue on a controller inhaler.[facility] [employer] program. Encouraged to talk to pharmacist and insurance. He verbalized understanding. Samples of Trelegy given in office. Will send refills out for Wixela and Spiriva. - Spirometry obtained today showing normal FVC, FEV1, FEV%. FVL shows scalloping on exhalation withreduced flow rates throughout. Inspiratory blunting noted. Advanced lung age. - Biologic workup showed Total IgE 634, Abs eosinophil count 354. - Continue JAMILA per pulmonology recommendations. - Consider VCD - see below. - Continue to treat atopy as stated above. - Follow-up with pulmonology - saw in 01/2024 with no changes. Slated to see in 07/2023 for 6-month evaluation. Recommend PFTs as his last PFTs were in 12/2022. - Follow-up in 3-4 months for further evaluation and management??2.?Dysphonia? Notes: Romario reports intermittent hoarseness that has been more pronounced over the past 3 weeks. He has been on Trelegy for some time, denies any medication changes and continues to brush teeth after Treelgy inhalation. - Previously recommend he speak with PCP re: this issue for further workup. He verbalized understanding. - No interval issues since last visit. ??3.?Allergic rhinitis due to pollen? Continue CETIRIZINE tablet, 10 mg, 1 tab(s), orally, once a day, 30 days, 30, Refills 0;?Continue FAMOTIDINE tablet, 40 mg, 1 tab(s), orally, 30 mins prior to SCIT, 30 days, 30, Refills 0;?Continue EPIPEN 2-CHACORTA kit, 0.3 mg, as directed, intramuscularly, once, 30 days, 1, Refills 0;?Increase SIT (Traditional) variable - see record, variable - see record, per schedule, subcutaneous, per schedule, 999 days;?Start Fluticasone Propionate Suspension, 50 MCG/ACT, 2 sprays in each nostril, Nasally, once a day, 30 days, Refills 0.?? Notes: Romario clearly suffers from atopic disease based upon our skin testing and history. Accordingly, we have encouraged his medication regimen, discussed nasal washes and allergy-specific avoidancemeasures. We also discussed adjunctive therapies including subcutaneous, specific allergen immunotherapy as relates to the treatment and prevention of atopic disease.Today, reporting nasal congestion at night. Otherwise, has no complaints. - SCIT received 2 days ago and tolerated well. - Continue medications as listed above. Continue premedication with Zyrtec and Pepcid. Will trial Flonase 1-2 sprays each nostril nightly for c/o nasal congestion. -AIE up to date. Patient was instructed that epinephrine needs to be carried to each immunotherapy visit and should be carried 2 hrs after dosing. - Follow-up in 4 weeks for SCIT, 3 months for E&M ??4.?Allergic rhinitis due to animal (cat) (dog) hair and dander? Notes: Follow allergen avoidance, meds and continue SCIT as an adjunctive treatment to current regimen.??5.?Other allergic rhinitis? Notes: Follow allergen avoidance, meds and continue SCIT as an adjunctive treatment to current regimen.??6.?Shortness of breath?Imaging: Spirometry (Performed Date - 05/26/2024)?Abnormal - FVL* Value Reference Range S piroPreBronchodilator_FVC 3.53 * S piroPreBronchodilator_FEF25_75 1.76 * S piroPreBronchodilator_FEV1 2.52 * S piroPrecentPredictionPre_FEF25_75 59.9 * S piroPrecentPredictionPre_FEV1 80 * S piroPrecentPredictionPre_FEV1_OVER_FVC 92 * S piroPrecentPredictionPre_FVC 86.9 * S piroPredicted_FEF25_75 2.94 * S piroPreBronchodilator_FEV1_OVER_FVC 71.52 * S piroPreBronchodilator_PEF 5.46 * S piroPredicted_FVC 4.06 * S piroPredicted_FEV1 3.15 * S piroPredicted_FEV1_OVER_FVC 77.73 * S piroPredicted_PEF 7.55 * Edie Ford 5 04:13:47 PM CDT > Normal FVC, FEV1, FEV%. FVL shows scalloping on exhalation with reduced flow rates throughout. Inspiratory blunting noted. Advanced lung age. Notes: - Consider VCD given inspiratory blunting on initial spirometry and prior subjective reportsof SOB on inhalation. See below. ??7.?Personal history of pneumonia (recurrent)? Notes: Patient reports 2-3 respiratory infections per year, requiring antibiotics and PO steroids. He has received antibiotics and OCS x 3 since 01/2023. Given recurrent infections, he meets the [facility] criteria for modified PIDD workup. Covid-19 PNA diagnosis in 2020, found on Chest CT. Workup revealed inadequate s.pneumo protection () and low vitamin D. - [id number] received in 06/2023 with repeat titers showin adequate protection () and normal Vit D. - Monitor for infection reoccurence. No interval infections. ??8.?Chronic sinusitis, unspecified? Notes: See plan above. Frequent sinus infections requiring antibiotics and OCS. Reports sinus surgery in . ??9.?Vitamin D deficiency, unspecified?LAB: -Vitamin D, 25-Hydroxy Notes: Prior Vit D level 19.0, supplement with 50,000IU weekly x 8 weeks followed by 5,000IU daily x 4 weeks. - Most recent Vit D level 44.1. Plan to continue 5,000IU daily. Will recheck now. Lab ordered and printed handout given to patient. ??10.?Other urticaria? Notes:Romario reports a history of intermittent hives for the past several years. He reports waking up lastnight with hive on back of leg this AM, first one in months. It has resolved by time of appointment. They appear at random, without known triggers. Described as intense itching.History, presentation, and timeframe of symptoms > 6 weeks c/w chronic idiopathic urticaria.Symptoms resolve within 24 hours. Denies associated angioedema. Denies NSAID use, alcohol, opioid use. - Continues to report no interval episodes. - Labortatory workup for futher evaluation showed - TPO Ab level 58. All other labs WNL. Forwarded results to PCP. - Encouraged to take pictures and journal for triggers. - Consider nightly Zyrtec and Pepcid BID as patient reports sedating effects with Zyrtec and Albertina. - Consider Xolair - Follow-up as above??11.?Rash and other nonspecific skin eruption? Notes:Romario reports historical rashes on his skin, often triggered by scented products. He uses all scent-free and dye-free products. He is currently managed by hog cooler Dr. Escobar for contact dermatitis. - Continue management per dermatology - reports no interval episodes. - Recommend continuation of scent-free and dye-free products. - Encouraged to take pictures.??12.?Other diseases of vocal cords? Notes: Subjective reports of inspiratory SOB and inspiratory blunting on spirometry concerning for VCD. - VCD handout given at prior appointment. Encouraged to attempt exercises next time he is SOB. - Consider referral to speech therapy. ??13.?Essential (primary) hypertension? Notes: BP WNL today. Continue serial checks and follow-up with PCP?? * Procedures: F low-Volume Loop/Spirometry/Spirometry Challenge: Interpretation N ormal FVC, FEV1, FEV%. FVL shows scalloping on exhalation with reduced flow rates throughout. Inspiratory blunting noted. Advanced lung age.?. * Procedure Codes: 9 6160 PT-FOCUSED HLTH RISK [id number] DOC MEDS VERIFIED W/PT OR [id number] RESPIRATORY FLOW VOLUME LOOP * Preventive Medicine: Counseling: D iet a s tolerated. E xercise C ontinue activity as usual, Consider JAMILA use PRN, prior to exercise as per the asthma action plan, Avoid heavy lifting on days of allergy immunotherapy. M edication instruction: W atch for side effects of prescribed medications, Moshe Use 2 puffs of JAMILA with spacer prior to exercise and environmental exposures known to cause wheezing, Use 2 inhalations of JAMILA DPI prior to exercise and environmental exposures known to cause wheezing, al steroid/antihistamine instruction: avoid septum. E ducation: G ENERAL EDUCATION: Our staff spent an additional 30 minutes in direct contact with the patient educating them on their current diagnoses and proper treatment and prevention of symptoms and the proper use of medications. E ducation 2: A RC EDUCATION: Our staff discussed the appropriate allergen avoidance measures and medication utilization including upper airway hygiene with daily nasal washes given the patient's clinical status and diagnoses.. P atient education material sent to portal? Y es C are goal follow up plan BMI management provided Y es Above Normal BMI Follow-up D ietary management education, guidance, and counseling * Follow Up: 4 Weeks,3 Months (Reason: SCIT,Evaluation and Management) * Billing Information: * Visit Code: 77900 Office Visit, Est Pt., Level 4. Modifiers: 25 * Procedure Codes: 91074 PT-FOCUSED HLTH RISK ASSMT. G8427 DOC MEDS VERIFIED W/PT OR RE. A4617 Mouthpiece. 30765 RESPIRATORY FLOW VOLUME LOOP. * Sign off status: Completed true * Provider: SEBASTIAN Hatch Date: 0 05/26/2024 Generated for Marcio rodriguez/Xin/Claryitting on: 0 06/15/2024 06:52 PM CDT History and Physical Notes * HPI (History of Present Illness) Category Sub-Category Detail Notes Category Not es *Introduction I had the pleasure o f seeing Romario Jessica, a 68-year-old male with a past medical history of asthma, aortic valve regurgitation, TAA, HTN, hyperlipidemia, ARI who returns in consultation with DILMA Loredo for interval evaluation and management. He is alone for today's visit. He was last evaluted in 01/2024. He is wearing a boot on left foot due to heel spur, potentially causing odalis-tears in achilles tendon. Today, Romario reports he has been doing well since last visit. ACT 20 with JAMILA use once every 2 weeks. Unfortunately, Aaron reports he has stopped his Trelegy for past 4 weeks due to high OOP costs. He continues on SCIT and is tolerating well. Previously reported intermittent hoarseness, but has had no interval episodes. Today, reporting nasal congestion specifically at night. Has not attempted nasal sprays or washes. Romario was evaluated by pulmonology on 04/24/23, felt Symbicort was not doing anything in regard to shortness of breath and dry cough so switched to Trelegy with noted improvement in shortness of breath. Per records, he was also treated with PO antibiotics and steroids for diffuse wheezing. Records indicate eosinophil count 506 from 09/2022. Recent PFTs from 12/2022 showed no obstruction or restriction. He reports receiving 2 rounds of antibiotics and steroids for wheezing and coughing in 01/2023 and 02/2023. He has not needed PO steroids since starting Trelegy, though was still reporting albuterol use 2-3 times per week, specifically for SOB on inhalation so Trelegy increased to high dose. Romario reported benefit, though was switched to Wixela and Spiriva due to insurance issues. He the went back on Trelegy with improvement. Unfortunately, off all controller inahlers x 4 weeks. Romario admits to sneezing and rhinorrhea almost year round. Aeroallergen skin testing was completed at first visit, and was positive to multiple seasonal and perennial allergens. Current treatment consists of Montelukast and continues on SCIT. He is tolerating well without LLR. He is premedicating with Zyrtec and Pepcid. Occasionally will take Zyrtec or Albertina with improvement in symptoms, but does make him drowsy. He has attempted Azelastine. He was previously allergy tested years ago by Dr. Asencio. Started allergy immunotherapy under Dr. Asencio but reported minimal improvement in symptoms. He reports sinus surgery in the , previously had recurrent sinus infections. Modified PIDD workup revealed low vit D (19.0) and inadequate s. pneumo (). He received [id number] with now adequate protection () and now normal Vit D level (44.1) He is currently followed by Dr. Sinclair's practice for cardiology for dilated aortic root and aortic valve regurgitation. Romario reports a history of intermittent hives for the past several years. No interval hives or swelling. They appear at random, without known triggers. Symptoms resolve within 24 hours. Denies associated angioedema. Denies NSAID use, alcohol, opioid use. CU workup revealed normal TSH, TPO antibody level of 58. He also reports rashes on his skin, often triggered by scents and fragrances. He reports he uses all scent-free and dye-free products. He is currently managed by hog cooler Dr. Silva for contact dermatitis. He has a history of Covid-19 PNA in [address], was on steroids and Breztri during that time. 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 Last OCS use for tendonitis of left foot in 05/2023. Today, he reports no fevers, chills, night sweats or other constitutional symptoms Examination Category Sub-Category Detail Notes Category Not es General examination HEENT: conjunctiva are normal bilaterally, TMs without evidence of acute infection, posterior oropharynx is clear without exudates, erythema on pharyngeal wall, no exudates, no tongue swelling, and uvula is midline Heart: RRR, S1-S2, no murmu rs, no rubs, no gallops Lungs: clear to auscultatio n in all lung wagn, no wheezes, no crackles, no rhonchi Extremities: normal ROM, no clubb ing, no cyanosis, no edema General appearance: pleasant, well-devel oped, well-nourished, male, in no apparent distress, speaking in full sentences Skin: normal, no visible r lidia, dermatographism, urticaria, angioedema Neurologic exam: unremarkable Oral cavity: normal, no lesions Breasts : not performed Back: normal Genitalia: not performed
--- OUTSIDE RECORDS SUMMARY | 2024-06-15 18:52 | XMS_ITS ---
Author Organization [facility] Address [address] [place] [address] Care Team Providers Care Dye Can Operator Name Role Phone Demetri Bucio MD Primary Care Provider Unavaila Edie Flores Unavailable [phone] Elidia Sainz Unavailable REASON FOR VISIT Edie/perscriptsav Encounters Encounter Location Date Provider Diagnosis [facility] [address] [place] [address] 05/26/2024 Edie Ford Plan Of Treatment Next Appt Details Provider Name:Declan France , 06/21/2024 03:00:00 PM, [address] [employer], [address], Provider Name:Declan France , 07/19/2024 01:00:00 PM, [address] [employer], [address], [place], [address], Provider Name:Declan France , 08/16/2024 01:00:00 PM, [address] [employer], [address], [place], [address], Progress Notes * Romario JESSICADOB:1955 (68 yo M)Acc No.[id number]:05/26/2024 Patient: Romario LYNN :1955 A ge:68 Y S ex:Male Address:[address] [place] [address], [place] [address] * true * Date: Generated for Marcio rodriguez/Xin/Vivek on: 0 06/15/2024 06:52 PM CDT
--- OUTSIDE RECORDS SUMMARY | 2024-06-15 18:53 | XMS_ITS ---
Author Organization [facility] Address [address] [place] [address] Care Team Providers Care Automobile Mechanic Assistant Name Role Phone Demetri Bucio MD Primary Care Provider Unavaila Edie Flores Unavailable [phone] Elidia Sainz Unavailable REASON FOR VISIT RE:Edie/perscriptsav Encounters Encounter Location Date Provider Diagnosis [facility] [address] [place] [address] 05/31/2024 Edie Ford Plan Of Treatment Next Appt Details Provider Name:Declan France , 06/21/2024 03:00:00 PM, [address], [address], [place], [address], Provider Name:Declan France , 07/19/2024 01:00:00 PM, [address], [address], [place], [address], Provider Name:Declan France , 08/16/2024 01:00:00 PM, [address], [address], [place], [address], Progress Notes * Romario JESSICADOB:1955 (68 yo M)Acc No.[id number]:05/31/2024 Patient: Romario LYNN :1955 A ge:68 Y S ex:Male Address:[address] [place] [address], [place] [address] * true * Date: Generated for Marcio rodriguez/Xin/Vivek on: 0 06/15/2024 06:52 PM CDT
--- OUTSIDE RECORDS SUMMARY | 2024-06-15 18:53 | XMS_ITS | Encounter Summary ---
Author Organization [facility] Address [address] [place] [address] Care Team Providers Care Hat Body Inspector Name Role Phone Demetri Bucio MD Primary Care Provider Encounter Details Date Type Department Care Team (Late st Contact Info) Description 05/05/2024 Results Follow-Up [facility] Cardiology [address] [place] [address] Ana Rosa Montero MD [address] [address] Social History Tobacco Use Types Packs/Day Years Used Date Smoking Tobacco: Never Smokeless Tobacco: Never Alcohol Use Standard Drinks/Week Comments Never 0 (1 standard drink = 0.6 oz pur e alcohol) AUDIT-C Answer Date Recorded Frequency of Alcohol Consumption Never 05/06/2019 Average Number of Drinks Not on file 020 Frequency of Binge Drinking Not on file 04/17 Personal Safety Answer Date Recorded Have you ever been in or are you currently in a harmful physical or emotional relationship or is someone making you feel afraid or unsafe? Denies 10/20/2022 Sex and Gender Information Value Date Recorded Sex Assigned at Not on file Legal Sex Male 4:39 AM PAPER BOX MAKER Gender Identity Male 04/30/2020 4:23 AM PAPER BOX MAKER Sexual Orientation Not on file documented as of this encounter Plan of Treatment Not on file documented as of this encounter Visit Diagnoses Not on filedocumented in this encounter Care Teams Hat Body Inspector Relationship Specialty Start Date End Date Demetri Bucio MD [address] [facility] [address] [place] [address] PCP - General Family Medicine 04/21/24 documented as of this encounter
--- OUTSIDE RECORDS SUMMARY | 2024-06-15 18:53 | XMS_ITS | Clinical Summary ---
Author Organization [facility] Address [address], [address] [address] Phone Care Team Providers Care Drapery Supervisor Name Role Phone Cameron Josue MD Primary Care Provider [phone] Zaidarod Hayden Lisa DO Unavailable [phone] Allergies Active Allergy Reactions Criticality Noted Date Comments Ampicillin Unknown 02/23/2017 Penicillins Unknown 02/23/2017 Medications polyethylene glycol (MIRALAX) Powder Use entire 255g bottle with 64oz of clear liquid as directed for colonoscopy prep. 255 g 7 Active Multiple Vitamins-Minera ls (MULTIVITAMIN PO) Take 1 Tab by mouth daily. Active Cholecalciferol (VITAMIN D PO) Take 1 Tab by mouth daily. Active Ferrous Fumarate 324 (106 Fe) MG Tablet Take 1 Tab by mouth daily. Active Calcium Citrate-Vitamin D (CITRACAL PETITES/VITAMIN D PO) Take 2 Tabs by mouth daily. Active Cyanocobalamin (VITAMIN B-12 PO) Take 1 Tab by mouth daily. Active Immunizations Immunization Administration Dates Next Due Covid-19, Mrna, Lnp-s, Pf, 30 Mcg/0.3 Ml Dose (Santos martinez) 06/08/2020,05/18/2020 Family History Medical History Relation Name Comments Heart Disease Father Breast Cancer Paternal Grandmother Relation Name Status Comments Father Mother Paternal Grandmother Social History Tobacco Use Types Packs/Day Years Used Date Smoking Tobacco: Never Smokeless Tobacco: Never Alcohol Use Standard Drinks/Week Comments No 0 (1 standard drink = 0.6 oz pur e alcohol) Sex and Gender Information Value Date Recorded Sex Assigned at Not on file Legal Sex Male 12:20 AM CDT Gender Identity Not on file Sexual Orientation Not on file Plan of Treatment Health Maintenance Due Date Last Done Comments Hepatitis C Virus (HCV) Screening 1955 Cologuard 12/08/2003 Immunochemical Fecal Occult Blood 12/08/2003 Zoster Immunization (1 of 2) 12/08/2003 PSA Discussion 2008 Colonoscopy 02/16/2022 02/16/2017 Colorectal Cancer Screening 02/16/2022 Influenza Immunization (#1) 2023 SARS-COV-2 Immunization ( season) 2023 06/08/2020, 05/18/2020 Respiratory Syncytial Virus (RSV) Immunization (Adult) (1 - 1-dose 75+ series) 2028 02/16/2017 DTaP/Tdap/Td Immunization Discontinued 2012, 03/16/2003 TdaP Immunization Completed 10/22/2012 Pneumococcal Immunization (5 0+ years) Completed 02/20/2020, 02/07/2019 Pneumococcal Immunization Combined Discontinued 02/20/2020, 02/07/2019 Hepatitis B Immunization Aged Out No longer eligible based on patient's age to complete this topic Meningococcal Immunization (ACWY) Aged Out No longer eligible based on patient's age to complete this topic Rotavirus Immunization Aged Out No lo nger eligible based on patient's age to complete this topic Procedures Procedure Name Priority Date/Time Associated Diagnosis Comments COLONOSCOPY Routine 02/16/2017 from Last 3 Months or Most Recently Relevant to Health Maintenance Results * COLONOSCOPY (02/16/2017) us Hayden Hubbard DO PROCEDURE/MINOR SURGICAL ORDERA BLES Final Result from Last 3 Months or Most Recently Relevant to Health Maintenance [place] [address] [facility] Care Teams Drapery Supervisor Relationship Specialty Start Date End Date Cameron Josue MD [address] [place] [address] PCP - General Family Medicine 08/22/16 Hayden Hubbard DO [address] [place] [id number] Gastroenterology 02/18/17
--- OUTSIDE RECORDS SUMMARY | 2024-06-15 18:53 | XMS_ITS | CONTINUITY OF CARE DOCUMENT ---
Author Name patel sweeney Address Unknown Organization [facility] Address [address] [place] [address] [address] [place] [address] Phone [phone] Care Team Providers Care Court Of Appeals Judge Name Role Phone patel sweeney Unavailable Unavailable
--- OUTSIDE RECORDS SUMMARY | 2024-06-15 18:53 | XMS_ITS | Referral Summary ---
Author Organization [facility] [address] Address [address] [place] [address] [address] [place] [address] Care Team Providers Care Test Technician Name Role Phone Demetri Bucio MD Primary Care Provider Encounters Date Type Department Care Team Description 05/05/2024 Results Follow-Up [facility] Cardiology [address] [place] [address] [address] [place] [address] Ana Rosa Montero MD 04/29/2024 Orders Only [facility] Health Information Management [address] [place] [address] Ana Rosa Montero MD 04/21/2024 8:00 AM HOSPICE FELLOW Office Visit [facility] Cardiology [address] [place] [address] [address] [place] [address] Ana Rosa Montero MD Coronary artery disease involving [place] coronary artery of [place] heart without angina pectoris (Primary Dx); Aneurysm of ascending aorta without rupture; HTN (hypertension), benign; Mixed hyperlipidemia from Last 3 Months Allergies Active Allergy Reactions Criticality Noted Date Comments Ampicillin Rash Medium 03/11/2019 Penicillin G Rash Medium 03/11/2019 Tramadol Rash Medium 06/27/2021 Medications atorvastatin (LIPITOR) 10 mg tablet 05/02/19 20 Active losartan-hydroC HLOROthiazide (HYZAAR) 50-12.5 mg per tablet Take 1 tablet by mouth daily Active omeprazole (PriLOSEC) 20 mg capsule 01/11/20 21 Active triamcinolone (KENALOG) 0.1 % ointment APPLY TO RASH AREAS ON HANDS TWICE A DAY FOR FOUR WEEKS FOR FLARES, THEN USE TWICE A WEEK FOR MAINTENANCE (NO FACE) 07/03/19 22 Active aspirin (Adult Low Dose Aspirin) 81 mg enteric coated tablet Take 1 tablet (81 mg total) by mouth daily 05/29/19 23 Active dexAMETHasone 0.5 mg/5 mL solution SWISH FOR SEVERAL MINUTES AND SPIT 5 ML BY MOUTH TWICE DAILY FOR 2 WEEKS 08/02/19 23 Active albuterol HFA (PROVENTIL HFA,VENTOLIN HFA,PROAIR HFA) 90 mcg/actuation inhaler INHALE 1 TO 2 PUFFS BY MOUTH EVERY 4 TO 6 HOURS NEEDED FOR SHORTNESS OF BREATH OR WHEEZING 11/03/19 23 Active montelukast (SINGULAIR) 10 mg tablet Take 1 tablet (10 mg total) by mouth nightly at bedtime 10/28/19 23 Active metoprolol tartrate (LOPRESSOR) 25 mg immediate release tabletIndicatio ns:Aortic valve insufficiency, etiology of cardiac valve disease unspecified TAKE ONE-HALF TABLET BY MOUTH TWICE DAILY 100 tablet 2 05/31/19 25 Active metoprolol tartrate (LOPRESSOR) 25 mg immediate release tabletIndicatio ns:Aortic valve insufficiency, etiology of cardiac valve disease unspecified Take 0.5 tablets (12.5 mg total) by mouth 2 (two) times a day 100 tablet 03/22/19 25 025 Discontinued Active Problems Problem Noted Date Diagnosed Date Coronary artery disease invo lving [place] coronary artery of [place] heart without angina pectoris 04/28/2023 ARI on CPAP 09/11/2022 Morbid (severe) obesity due to excess calories 0 09/11/2022 Chronic fatigue 05/08/2022 Ascending aortic aneurysm 06/27/2021 Mixed hyperlipidemia 02/21/2021 History of COVID-19 11/13/2020 Aortic regurgitation 05/06/2019 Aortic root dilatation 05/06/2019 HTN (hypertension), benign 05/06/2019 History of weight loss surgery 05/06/2019 Murmur, heart 05/06/2019 Resolved Problems Problem Noted Date Diagnosed Date Resolved Date SEYMOUR (dyspnea on exertion) 01/21/2022 Exertional chest pain 05/06/20192024 Dyslipidemia 05/06/2019 02/21/2021 Social History Tobacco Use Types Packs/Day Years [...] on file Legal Sex Male 4:39 AM HOSPICE FELLOW Gender Identity Male 04/30/2020 4:23 AM HOSPICE FELLOW Sexual Orientation Not on file Last Filed Vital Signs Vital Sign Reading Time Taken Comments Blood Pressure 110/62 04/21/2024 7:56 AM HOSPICE FELLOW Pulse 53 04/21/2024 7:56 AM HOSPICE FELLOW Temperature 36.7 C (98 F) 04/17/2020 1:08 PM HOSPICE FELLOW Respiratory Rate 19 10/20/2022 8:09 AM CDT Oxygen Saturation 99% 04/21/2024 7:56 AM HOSPICE FELLOW Inhaled Oxygen Concentration - - Weight 107.5 kg (237 lb) 04/21/2024 7:56 AM HOSPICE FELLOW Height 170.2 cm (5' 7 ) 04/21/2024 7:56 AM HOSPICE FELLOW Body Mass Index 37.12 04/21/2024 7:56 AM HOSPICE FELLOW Plan of Treatment Not on file Procedures Procedure Name Priority Date/Time Associated Diagnosis Comments SCAN - RADIOLOGY/IMAGING 04/29/2024 LIPID PANEL Routine 04/21/2024 7:49 AM HOSPICE FELLOW from Last 3 Months Results * SCAN - RADIOLOGY/IMAGING (04/29/2024) Anatomical Region Laterality Modality Other us [facility] David Montero MD Final R esult * Lipid panel (04/21/2024 7:49 AM HOSPICE FELLOW) SCRIBED Cholesterol, Total 136 <100 EXTERNAL LAB SCRIBED HDL 30 >40 EXTERNAL LAB SCRIBED LDL 79 <100 EXTERNAL LAB SCRIBED Triglycerides 132 <150 EXTERNAL LAB Blood 04/21/2024 7:[address] [facility] David Montero MD LAB BLOOD ORDERABLES Ed ited Result - Final EXTERNAL LAB from Last [address] [place] [address] [facility] MEDICARE ADVANTAGE [facility] Address: [address] [address] [place] [address] [place] [address] [facility] MEDICARE ADVANTAGE [facility] Address: [address] [address] [place] [address] [place] [address] [facility] MEDICARE ADVANTAGE [facility]IC[facility] Address: [address] [address] Care Teams Test Technician Relationship Specialty Start Date End Date Demerti Bucio MD [address] [facility] [address] [place] [address] PCP - General Family Medicine 04/21/24
--- OUTSIDE RECORDS SUMMARY | 2024-06-15 18:53 | XMS_ITS | Clinical Summary ---
Author Organization [facility] [address] Address [address] [place] [address] Care Team Providers Care Employment Educational Coord Name Role Phone Demetri Bucio MD Primary Care Provider Allergies Active Allergy Reactions Criticality Noted Date [...] Diagnosed Date Coronary artery disease invo lving [place] coronary artery of [place] heart without angina pectoris 04/28/2023 ARI on [...] Exertional chest pain 05/06/20192024 Dyslipidemia 05/06/2019 02/21/2021 Encounters Date Type Department Care Team Description 05/05/2024 Results Follow-Up [facility] Cardiology [address] [facility] [address] [place] [address] Ana Rosa Montero MD 04/29/2024 Orders Only [facility] Health Information Management [address] [place] [address] Ana Rosa Montero MD 04/21/2024 8:00 AM TRAIN CREW MEMBER Office Visit [facility] Cardiology [address] [facility] [address] [place] [address] Ana Rosa Montero MD Coronary artery disease involving [place] coronary artery of [place] heart without angina pectoris (Primary Dx); Aneurysm of ascending aorta without rupture; HTN (hypertension), benign; Mixed hyperlipidemia from Last 3 Months Surgical History Surgery Date Site/Laterality Comments APPENDECTOMY 03/16/1966 - 03/15/1967 CHOLECYSTECTOMY 01/15/2020 - 02/13/2020 VASECTOMY 03/16/1985 - 03/15/1986 BARIATRIC SURGERY 03/16/2015 - 03/15/2016 PARTIAL KNEE ARTHROPLASTY 04/29/2021 Left Medical History Medical History Date Comments Hyperlipidemia Hypertension 05/2020 Sleep apnea 2000 GERD (gastroesophageal reflux disease) Cataract Family History Medical History Relation Name Comments Hypertension Brother Emanuel Emerson Bypass Father Geraldine Salmeronler Heart disease Father Geraldine Emerson Valvular heart disease Father Geraldine Cordovampler Heart disease Paternal Grandfather Ortega Emerson Cancer Paternal Grandmother Anahy Emerson Diabetes Sister 1 Bell Garland Heart disease Sister 1 Bell Gar[place] Cancer Sister 2 Mary [place] Relation Name Status Comments Brother Emanuel Emerson Father Geraldine Emerson Alive Mother Paternal Grandfather Ortega Emerson Paternal Grandmother Anahy Emerson Sister 1 Bell Garland Sister 2 Mary Turk (Age 65) Social History Tobacco Use Types Packs/Day Years [...] on file Legal Sex Male 4:39 AM TRAIN CREW MEMBER Gender Identity Male 04/30/2020 4:23 AM TRAIN CREW MEMBER Sexual Orientation Not on file Obstetrics History Last Filed Vital Signs Vital Sign Reading Time Taken Comments Blood Pressure 110/62 04/21/2024 7:56 AM TRAIN CREW MEMBER Pulse 53 04/21/2024 7:56 AM TRAIN CREW MEMBER Temperature 36.7 C (98 F) 04/17/2020 1:08 PM TRAIN CREW MEMBER Respiratory Rate 19 10/20/2022 8:09 AM CDT Oxygen Saturation 99% 04/21/2024 7:56 AM TRAIN CREW MEMBER Inhaled Oxygen Concentration - - Weight 107.5 kg (237 lb) 04/21/2024 7:56 AM TRAIN CREW MEMBER Height 170.2 cm (5' 7 ) 04/21/2024 7:56 AM TRAIN CREW MEMBER Body Mass Index 37.12 04/21/2024 7:56 AM TRAIN CREW MEMBER Plan of Treatment Health Maintenance Due Date Last Done Comments Colon Cancer Screening-Colonoscopy 1955 Depression Screening 1955 Hepatitis C Screening 1955 Hepatitis B Screening 12/08/1971 Pneumococcal vaccine 65+ (1 of 1 - PCV) 12/08/2003 Zoster Vaccine (1 of 2) 12/08/2003 Well Visit 65+ 2018 DTaP/Tdap/Td Vaccine (2 - Td or Tdap) 10/22/202211/2012, 03/16/2003 Fall Risk Assessment 10/21/2023 10/20/2022 Covid-19 Vaccine (3 - season) 2023, 05/18/2020 Influenza Vaccine (#1) 2023 12/27/2015 Procedures Procedure Name Priority Date/Time Associated Diagnosis Comments SCAN - RADIOLOGY/IMAGING 04/29/2024 LIPID PANEL Routine 04/21/2024 7:49 AM TRAIN CREW MEMBER from Last 3 Months Results * SCAN - RADIOLOGY/IMAGING (04/29/2024) Anatomical Region Laterality Modality Other Ana Rosa Montero MD Final R esult * Lipid panel (04/21/2024 7:49 AM TRAIN CREW MEMBER) SCRIBED Cholesterol, Total 136 <100 EXTERNAL LAB SCRIBED HDL 30 >40 EXTERNAL LAB SCRIBED LDL 79 <100 EXTERNAL LAB SCRIBED Triglycerides 132 <150 EXTERNAL LAB Blood 04/21/2024 7:49 AM TRAIN CREW MEMBER Ana Rosa Montero MD LAB BLOOD ORDERABLES Ed ited Result - Final EXTERNAL LAB from Last [address] [place] [id number] [facility] [place] [address] [employer] MEDICARE ADVANTAGE [place] [id number] [facility] MEDICARE ADVANTAGE Care Teams Employment Educational Coord Relationship Specialty Start Date End Date Demetri Bucio MD [address] [facility] [address] [place] [address] PCP - General Family Medicine 04/21/24
[2024-06-15] MEDS: ACETAMINOPHEN 325 MG TABLET 650 MG PO (20:15)
--- NOTE | 2024-06-15 20:58 | ADMGEN ---
This patient, Romario Emerson, was admitted to Medical Room 342-01. Patient/family oriented to hospital policies and general routines including ID bracelet, bed and alarms, visiting hours, pain management, procedures, bathroom and other care routines, personal items, smoking policy, room service/diet, and visiting hours. Information on how to activate the Rapid Response Team has been discussed. Patient/Family are encouraged to report perceived risks to care and to ask questions if they do not understand what they are told or what they should do.
[2024-06-16] VITALS (14 sets, daily range): BP systolic 109–127; BP diastolic 61–65; PULSE 59–85; RESP 16–18; TEMP 36.3–36.6; O2SAT 94–96
--- NOTE | 2024-06-16 | ECHO_ITS ---
Patient Info Name: Romario Emerson Age: 68 years : 1955 Gender: Male Ht: 67 in Wt: 234 lbs BSA: 2.28 m2 HR: 65 bpm BP: 109 / 61 mmHg Heart Rhythm: Sinus Arrhythmia Technical Quality: Fair Exam Date: 06/16/2024 12:10 PM Exam Location: Echo Lab Patient Status: Inpatient Admit Date: 06/16/2024 Staff Ordering Physician: Sonia Chaney PA-C Hop Farmer: Amy Escamilla RDCS Attending Provider: Sonia Chaney PA-C Referring Physician: Shiv CHATTERJEE; Exam Type: CA echo doppler w bubble study Study Info Indications - CVA Complete two-dimensional, color flow and Doppler transthoracic echocardiogram is performed with agitated saline. Summary 1. Left ventricular chamber dimension is normal. 2. Left ventricular systolic function is normal, estimated at 60-65%. 3. There is mildly increased left ventricular wall thickness. 4. The left ventricular diastolic function is grade I diastolic dysfunction. 5. Right ventricular systolic function is normal. 6. Intact interatrial septum visualized by color flow and agitated saline imaging. Negative bubble study. 7. There is mild aortic valve regurgitation. 8. There is mild tricuspid valve regurgitation. 9. The aortic root size at the sinus of Valsalva is mildly dilated. 10. The prox ascending aorta size is mildly dilated. Left Ventricle Left ventricular chamber dimension is normal. Left ventricular systolic function is normal, estimated at 60-65%. There is mildly increased left ventricular wall thickness. The left ventricular diastolic function is grade I diastolic dysfunction. Right Ventricle Right ventricular chamber dimension is normal. Right ventricular systolic function is normal. Left Atria Left atrial chamber dimension is normal. Right Atria Right atrial chamber dimension is normal. Atrial Septum Intact interatrial septum visualized by color flow and agitated saline imaging. Negative bubble study. Aortic Valve The aortic valve is probable trileaflet. There is no aortic valve stenosis. There is mild aortic valve regurgitation. There is moderate aortic valve calcification. Pulmonic Valve The pulmonic valve is not well visualized. There is trace pulmonic regurgitation. Mitral Valve There is trace mitral valve regurgitation. The mitral valve annulus is mildly calcified. Tricuspid Valve There is mild tricuspid valve regurgitation. Pericardium/Pleural The pericardium appears epicardial fat pad. There is no pericardial effusion. Inferior Vena Cava Inferior vena cava is not well visualized. Aorta The aortic root size at the sinus of Valsalva is mildly dilated. The prox ascending aorta size is mildly dilated. Left Ventricular Outflow Tract Name Value Normal LVOT 2D LVOT Diameter 2.3 cm LVOT Doppler LVOT Peak Gradient 5 mmHg LVOT Mean Gradient 3 mmHg LVOT VTI 27 cm LVOT VTI/AV VTI Ratio 0.7 LVOT Stroke Volume 110 ml LVOT CO 7.0 l/min LVOT CI 3.1 l/min/m2 Pulmonic Valve Name Value Normal RVOT Doppler RVOT Peak Gradient 1 mmHg PV Doppler PV Peak Gradient 6 mmHg Mitral Valve Name Value Normal MV Doppler MV Decel [place] 169 cm/s2 MV PHT 90 ms MV Area (PHT) 2.4 cm2 4.0-5.0 MV Diastolic Function MV E Peak Velocity 52 cm/s MV A Peak Velocity 86 cm/s MV E/A 0.6 MV Decel Time 310 ms MV Annular TDI MV E/e' (Septal) 12.2 <=8.0 MV E/e' (Lateral) 6.6 <=8.0 MV E/e' (Average) 9.4 Tricuspid Valve Name Value Normal TV Regurgitation Doppler TR Peak Velocity 246 cm/s TR Peak Gradient 24 mmHg Aortic Valve Name Value Normal AV Doppler AV Peak Velocity 196 cm/s AV Peak Gradient 15 mmHg AV Mean Gradient 7 mmHg AV VTI 40 cm AV Area (Cont Eq VTI) 2.8 cm2 >=3.0 AV Area (Cont Eq Juan) 2.2 cm2 AV Regurgitation 2D LVOT Area 4.1 cm2 AV Regurgitation Doppler AR Decel Time 2,199 ms AR Decel [place] 150 cm/s2 AR PHT 638 ms Ventricles Name Value Normal LV Dimensions 2D/MM IVS Diastolic Thickness (2D) 1.1 cm 0.6-1.0 LVID Diastole (2D) 4.7 cm 4.2-5.8 LVIW Diastolic Thickness (2D) 1.1 cm 0.6-1.0 LVID Systole (2D) 3.3 cm 2.5-4.0 LVOT Diameter 2.3 cm LV Mass (2D Cubed) 196.89 g 88.00-224.00 LV Mass Index (2D Cubed) 86 g/m2 49-115 Relative Wall Thickness (2D) 0.47 LV Fractional Shortening/Ejection Fraction 2D/MM LV Fractional Shortening (2D) 30 % 25-43 LV EF (2D Teicholz) 57 % 52-72 LV Diastolic Volume (4C MOD) 119 ml LV EF (4C MOD) 65 % LV Diastolic Volume (2C MOD) 104 ml LV EF (2C MOD) 63 % LV Diastolic Volume (BP MOD) 112 ml 62-150 LV Diastolic Volume Index (BP MOD) 49 ml/m2 34-74 LV Systolic Volume (BP MOD) 41 ml 21-61 LV Systolic Volume Index (BP MOD) 18 ml/m2 11-31 LV EF (BP MOD) 63 % 52-72 LV Diastolic Length (4C) 8.9 cm LV Systolic Length (4C) 7.1 cm LV Stroke Volume (4C MOD) 77 ml Atria Name Value Normal LA Dimensions LA Volume (4C A-L) 50 ml RA Dimensions RA Area (4C) 17.8 cm2 <=18.0 Report Signatures
--- NOTE | 2024-06-16 00:01 | PM.IMHP ---
H&P: HPI History of Present Illness Date/Time: 06/16/24 00:01 Chief Complaint: Forgetfulness Narrative: A pleasant 68-year-old male with a history of ARI compliant with CPAP, hypertension, hyperlipidemia, headaches other comorbidities with a history of amnesia. The patient lives with his . Last known well was at 3:00 p.m. on the day of admission 06/16/2024. At 5:00 p.m. his noticed he was confused new not remember the events of today. The patient was brought to [facility] and his exam was consistent with anterograde amnesia. Vitals and laboratory workup largely unremarkable aside from mild uncontrolled hypertension. Head CT without acute abnormalities. Neurology consulted from ER. Review of Systems Review of Systems: All systems reviewed & are unremarkable except as noted in HPI and below (HPI) [facility] Past Medical History Medical History Mass of left forearm appears to be lipoma ARI on CPAP Pneumonia due to COVID-19 virus Aortic valve regurgitation Osteoarthritis of left knee Benign essential HTN Hyperlipidemia Thoracic aortic aneurysm (TAA) Eczema Dilated aortic root Surgical History Surgical History History of arthroplasty of left knee April 29, 2021 Bariatric surgery status History of arthroscopy of left knee medial meniscectomy S/P excision of lipoma multiple Hx of cholecystectomy Hx of appendectomy History of rotator cuff surgery Family History Family History Mother , Glaucoma before diagnosed before passing. Glaucoma Father Family history of cardiovascular disease Grandparent Family history of cardiovascular disease Grandparent Breast cancer Sibling Heart attack Social History Social History Social History: Smoking status: Never smoker Second hand tobacco smoke exposure: No Additional smoking assessment comments: PT DENIES ALL FORMS OF TOBACCO USE Alcohol intake: never Substance use: never Substance use type: does not use Do You Feel Safe in your Home?: Yes Lack of Transportation: No Lack of Food: Never True Current Housing: I Have Housing Concerned About Future Housing: No Difficulty Paying Gas/Electric Bills: No Difficulty Paying for Meds: No Currently Unemployed: No Education: High School Diploma/GED Difficulty w/ Childcare or Family Care: No Living arrangements: with family Occupation/Education: retired Gender identity (if verbalized by the patient): Male Sexual Orientation (if Verbalized by the Patient): Straight or Heterosexual Spiritual care concerns: No Meds Home Medications and Allergies Home Medications ?Medication ?Instructions ?Recorded ?Confirmed ?Type metoprolol tartrate 25 mg tablet 12.5 mg PO BID 11/30/20 06/15/24 History aspirin 81 mg chewable tablet 81 mg PO DAILY@0800 1 month #30 01/22/22 06/15/24 Rx (Children's Aspirin) tabs albuterol sulfate 2.5 mg/3 mL 2.5 mg (3 mL) inhalation Q4-6H PRN 01/21/23 06/15/24 Rx (0.083 %) solution for nebulization shortness of breath or wheezing #180 mL fluticasone fur. 200 mcg-umeclid 1 inh inhalation DAILY #60 ea 07/31/23 06/15/24 Rx 62.5 mcg-vilant 25 mcg inhalat.powder (Trelegy Ellipta) atorvastatin 10 mg tablet See Rx Instructions .Route 11/03/23 06/15/24 Rx .COMPLEX #100 tabs tamsulosin 0.4 mg capsule (Flomax) 0.4 mg PO DAILY 02/01/24 06/15/24 History omeprazole 20 mg capsule,delayed 20 mg PO DAILY laryngopharyngeal 03/23/24 06/15/24 Rx release reflux #90 caps losartan 50 mg-hydrochlorothiazide See Rx Instructions .Route 04/18/24 06/15/24 Rx 12.5 mg tablet .COMPLEX #100 tabs albuterol sulfate 90 mcg/actuation See Rx Instructions .Route 05/24/24 06/15/24 Rx aerosol inhaler .COMPLEX #51 grams Allergies Allergy/AdvReac Type Severity Reaction Status Date / Time ampicillin Allergy Mild RASH Verified 03/25/24 09:11 Penicillins Allergy Mild Rash Verified 03/25/24 09:11 tramadol Allergy Rash Verified 03/25/24 09:11 Vital Signs Vital Signs - 24 hr 06/15/24 18:21 06/15/24 18:21 06/15/24 18:45 Temperature 98.1 F Pulse Rate 97 96 96 Respiratory Rate 20 20 17 Blood Pressure 171/83 H 171/83 H Pulse Oximetry 98 97 96 Oxygen Delivery Room Air 06/15/24 18:59 06/15/24 19:01 06/15/24 19:17 Temperature Pulse Rate 94 95 99 Respiratory Rate 18 20 17 Blood Pressure 163/93 H 162/92 H 156/75 H Pulse Oximetry 95 94 93 Oxygen Delivery 06/15/24 20:30 06/15/24 20:55 06/15/24 21:52 Temperature 98.2 F Pulse Rate 87 96 Respiratory Rate 18 Blood Pressure 156/86 H Pulse Oximetry 96 Oxygen Delivery Room Air Exam Const: General: comfortable and no acute distress Eyes: EOM: EOMs intact bilaterally Neck: Neck: supple Resp: Effort & Inspection: normal respiratory effort Auscultation: clear to auscultation bilaterally Cardio: Rate: regular rate Rhythm: regular rhythm GI: Inspection: non-distended GI Palp: Yes Soft to palpation and No Tenderness to palpation present (GI) Neuro: Speech: normal speech Motor exam (neuro): 5/5 motor strength present throughout Sensory Exam: normal sensation Extrem: General: no edema Psych: Mental Status: mental status grossly normal H&P: Results Labs Labs: Short CBC 06/15/24 Range/Units 18:00 WBC 7.5 (4.5-10.0) K/mm3 Hgb 16.4 (14.0-18.0) g/dL Hct 46.2 (42.0-52.0) % Plt Count 272 (150-375) k/mm3 BMP 06/15/24 18:00 Sodium 141 Potassium 3.9 Chloride 103 Carbon Dioxide 25 BUN 24 H Creatinine 1.21 Glucose 98 Calcium 9.6 Cardiac Enzymes 06/15/24 Range/Units 18:00 Troponin I < 0.012 (0.000-0.034) ng/mL Liver Function 06/15/24 Range/Units 18:00 Total Bilirubin 0.9 (0.2-1.3) mg/dL AST 38 (17-59) U/L ALT 54 H (6-50) U/L Alkaline Phosphatase 69 (38-126) U/L Albumin 4.7 (3.5-5.1) g/dL Assessment and Plan Assessment and plan (1) Transient global amnesia: Code(s): G45.4 - Transient global amnesia Status: Acute Plan A pleasant 68-year-old male with a history of ARI compliant with CPAP, hypertension, hyperlipidemia, headaches other comorbidities with a history of amnesia. The patient lives with his . Last known well was at 3:00 p.m. on the day of admission 06/16/2024. At 5:00 p.m. his noticed he was confused new not remember the events of today. The patient was brought to [facility] and his exam was consistent with anterograde amnesia. Vitals and laboratory workup largely unremarkable aside from mild uncontrolled hypertension. Head CT without acute abnormalities. Neurology consulted from ER. ----- At the time of evaluation in room 342 the patient reports feeling well aside from his difficult memory recall. Believes his cognition is improving as well. He reports he does not remember how he got to the hospital but checked his ring camera and saw an ambulance. He otherwise has no complaints and converses appropriately. The patient reports a mild headache however declines to take any analgesics. He reports on and off mild headaches many years and at 1 point in the distant past he had a very similar episode of anterior grade amnesia. It resolved within a day, he had follow-up with his PCP shortly after and no further testing or management was added. Admission for observation. Likely transient global amnesia. MRI ordered, neurology consult placed from ER. Fall risk. Full code. SCDs. Saline lock IV. CPAP ordered. Hospitalist MIPS Advance Care Plan I have confirmed that the patient's Advanced Care Plan is present, code status is documented, or surrogate decision maker is listed in patient medical record.: Yes Medication Reconciliation I have utilized all available resources to obtain, update and review the patients current medications (includes all prescriptions, OTC, herbals, cannabis, and nutritional supplements).: Yes
[2024-06-16] MEDS: METOPROLOL TARTRATE 12.5 MG TABLET PO ×3 (00:31→20:16)
[2024-06-16] MEDS: FLUTICASONE/UMECLIDIN/VILANTER 200-62.5-25 MCG ELLIPTA 1 PUFF INHALATION (08:18)
--- NOTE | 2024-06-16 08:32 | P.PNIM_ITS ---
Progress Note: A&P Assessment and Plan (1) Transient global amnesia: Code(s): G45.4 - Transient global amnesia Status: Acute Assessment and Plan: Differential diagnosis includes transient ischemic attack or partial complex seizures. No history of seizures, no signs of shaking. Per patient stared blankly but was able to respond to her during that time. Previously had a TGA event about 10 years ago that lasted approximately 4-5 hours, states his sister also had TGA events in the past - Lipid panel ordered, atorvastatin increased to 40 mg daily - Head CT: No acute intracranial hemorrhage or suspicious mass effect - Head/neck CTA: Moderate calcified atheromatous disease with 19% right and 33% left stenosis. No large vessel occlusion. - MRI: Normal aging brain with mild scattered white matter T2 hyperintensity consistent with chronic small vessel ischemic disease. No acute intracranial process or abnormally enhancing brain lesions. - Echo ordered - EEG ordered - Continue asa 81 mg daily, started on plavix 75 mg daily - Monitor CBC, CMP, magnesium, troponin, and lipid profile - Monitor blood pressure, allow for permissive hypertension. - Telemetry monitoring - Monitor blood glucose - Neurology consulted, appreciate assistance and recommendations dual antiplatelets for 3 months thereafter he can not go down to aspirin alone increase the dose of Lipitor to 40 mg a day. an EEG is also recommended. (2) Benign essential HTN: Code(s): I10 - Essential (primary) hypertension Status: Acute Assessment and Plan: Chronic - losartan 50 mg - HCTZ 12.5 mg daily - metoprolol 12.5 BID - blood pressures remain well controlled, continue to monitor (3) RAI (obstructive sleep apnea): Code(s): G47.33 - Obstructive sleep apnea (adult) (pediatric) Status: Acute Assessment and Plan: Continue CPAP Time Spent With Patient Time with patient: 25 - 35 minutes Subjective Date/time seen: 06/16/24 08:32 Interval history: 68 year old male with past medical history of ARI on CPAP, HTN, HLD, thoracic aortic aneurysm, and history of amnesia presents to the hospital for anterograde amnesia. Patient is pleasant sitting on the side of his bed with family at bedside. He continues to endorse amnesia but notes that some of his memory has improved from yesterday. Per his patient became increasingly confused yesterday where he was seen staring blankly at her but was able to respond to her questions all be it not correctly. She denies noticing any weakness slurred speech facial asymmetry. Patient denies any tingling/numbness or weakness during assessment. He has no other complaints as he also denies chest pain, palpitations, shortness of breath, nausea/vomiting, abdominal pain. Review of Systems Review of Systems: All systems reviewed & are unremarkable except as noted in HPI and below Exam Narrative: AF HR 65 RR 18 SpO2 95 BP 109/61 General: male in no acute respiratory distress who is nontoxic appearing, sitting on the side of his bed HEENT: Normocephalic. Atraumatic. Extraocular movement intact. Sclera clear and anicteric. No facial asymmetry. Chest: Lungs are clear to auscultation bilaterally. No wheezes or crackles. CV: Heart was regular rate and rhythm. Abd: Abdomen was soft. Nontender. Nondistended. Positive bowel sounds. No organomegaly or masses. Ext: No clubbing, cyanosis, or edema. DP pulses bilaterally. Neuro: Patient is alert and oriented x4. Strength is 5/5 in both upper and lower extremities with pushes/pulls. No upper extremity drift. Able to name 5 colors and animals. Cranial nerves 2-12 are intact. Speech is clear. Objective Data Vital Signs Vital Signs: Vital Signs - 24 hr 06/15/24 18:21 06/15/24 18:21 06/15/24 18:45 Temperature 98.1 F Pulse Rate 97 96 96 Respiratory Rate 20 20 17 Blood Pressure 171/83 H 171/83 H Pulse Oximetry 98 97 96 Oxygen Delivery Room Air 06/15/24 18:59 06/15/24 19:01 06/15/24 19:17 Temperature Pulse Rate 94 95 99 Respiratory Rate 18 20 17 Blood Pressure 163/93 H 162/92 H 156/75 H Pulse Oximetry 95 94 93 Oxygen Delivery 06/15/24 20:30 06/15/24 20:55 06/15/24 21:52 Temperature 98.2 F Pulse Rate 87 96 Respiratory Rate 18 Blood Pressure 156/86 H Pulse Oximetry 96 Oxygen Delivery Room Air 06/15/24 22:30 06/16/24 00:00 06/16/24 00:31 Temperature Pulse Rate 81 85 78 Respiratory Rate Blood Pressure Pulse Oximetry 96 Oxygen Delivery Autopap 06/16/24 02:15 06/16/24 04:00 06/16/24 04:47 Temperature 97.8 F Pulse Rate 68 69 65 Respiratory Rate 18 Blood Pressure 109/61 Pulse Oximetry 94 95 Oxygen Delivery Autopap 06/16/24 08:19 Temperature Pulse Rate Respiratory Rate Blood Pressure Pulse Oximetry 96 Oxygen Delivery Room Air Intake/Output Intake/Output: Intake & Output 06/13/24 06/14/24 06/15/24 06/16/24 23:59 23:59 23:59 23:59 Output Total 400 Balance -400 Meds/Results Medications: Active Medications Generic Name Dose Route Start Last Admin Trade Name Freq PRN Reason Stop Dose Admin Acetaminophen 650 mg 06/15/24 19:31 06/15/24 20:15 Acetaminophen 325 Mg Tablet PO 650 mg Q4H PRN Administration Mild Pain (1-3) or Fever Albuterol 2.5 mg 06/15/24 23:55 Albuterol Sulfate Neb 2.5 Mg/3 Ml Inh INHALATION Q4-6H PRN shortness of breath or wheezing Aspirin 81 mg 06/16/24 08:00 Aspirin 81 Mg Chewable Tablet PO DAILY@0800 [facility] Atorvastatin Calcium 10 mg 06/16/24 09:00 Atorvastatin 10 Mg Tablet BY MOUTH DAILY [facility] Fluticasone/Umeclidinium/Vilanterol 1 puff 06/16/24 08:00 06/16/24 08:18 Fluticasone/Umeclidin/Vilanter 200-62.5-25 Mcg Ell[facility]a [facility] Administration Hydrochlorothiazide 12.5 mg 06/16/24 09:00 Hydrochlorothiazide 12.5 Mg Capsule PO QAM [facility] Losartan Potassium 50 mg 06/16/24 09:00 Losartan Potassium 50 Mg Tablet PO QAM [facility] Metoprolol Tartrate 12.5 mg 06/16/24 00:10 06/16/24 00:31 Metoprolol Tartrate 12.5 Mg Tablet PO 12.5 mg Q12HR [facility] Administration Pantoprazole Sodium 40 mg 06/16/24 09:00 Pantoprazole 40 Mg Tablet PO QAM [facility] Tamsulosin HCl 0.4 mg 06/16/24 09:00 Tamsulosin Hcl 0.4 Mg Capsule PO DAILY [facility] Radiology Results: ITS Impressions Head CT 06/15/24 18:07 Impression: No acute intracranial hemorrhage or suspicious mass effect. These findings were discussed with Dr. Stevens at 6:00 PM on 06/15/2024 Head/Neck CTA 06/15/24 18:46 IMPRESSION: Moderate calcified atheromatous disease. Percent stenosis per NASCET criteria on the right is 19%, and on the left is 33%. No large vessel occlusion. Chest X-Ray 06/15/24 19:52 IMPRESSION: No focal infiltrate or effusion. Labs Labs: Laboratory Results - last 24 hr 06/15/24 18:00 WBC 7.5 RBC 5.14 Hgb 16.4 Hct 46.2 MCV 89.9 MCH 31.9 MCHC 35.5 RDW 13.2 Plt Count 272 MPV 8.3 Immature Gran % (Auto) 0.5 Neut % (Auto) 59.4 Lymph % (Auto) 22.6 [place] % (Auto) 13.1 H Eos % (Auto) 3.3 Baso % (Auto) 1.1 Lymph # (Auto) 1.70 [place] # (Auto) 1.0 H Eos # (Auto) 0.3 Baso # (Auto) 0.1 Abs Immat Gran (auto) 0.04 H Absolute Neuts (auto) 4.5 Absolute Nucleated RBC 0.000 Nucleated RBC % 0.0 PT 13.8 INR 1.0 APTT 26.5 Sodium 141 Potassium 3.9 Chloride 103 Carbon Dioxide 25 Anion Gap 13 H BUN 24 H Creatinine 1.21 Estim Creat Clear Calc Not Reportable Estimated GFR 59 Glucose 98 Calcium 9.6 Total Bilirubin 0.9 AST 38 ALT 54 H Alkaline Phosphatase 69 Troponin I < 0.012 Total Protein 8.0 Albumin 4.7 TSH 2.390 Quality VTE Prophylaxis VTE prophylaxis: pharmacologic ordered
[2024-06-16] MEDS: hydroCHLOROthiazide 12.5 MG CAPSULE PO (10:13)
[2024-06-16] MEDS: PANTOPRAZOLE 40 MG TABLET PO (10:13)
[2024-06-16] MEDS: ASPIRIN 81 MG CHEWABLE TABLET PO (10:13)
[2024-06-16] MEDS: LOSARTAN POTASSIUM 50 MG TABLET PO (10:14)
[2024-06-16 10:29] LABS: Estimated CRCL calculation 51 ml/min; Estimated Glomerular Filt Rate 50
--- NOTE | 2024-06-16 12:54 | WPDNEURCNPN ---
Assessment and Plan Assessment and plan (1) Transient global amnesia: Code(s): G45.4 - Transient global amnesia Status: Acute Assessment and Plan: Differential diagnosis this condition would include transient ischemic attack or partial complex seizures. MRI of the brain was performed did not show any significant abnormality. Last LDL was 76. Would suggest dual antiplatelets and increase the dose of Lipitor to 40 mg a day. the patient gives a history of having a similar spell that lasted for approximately 5 hours 10 years ago. (2) Benign essential HTN: Code(s): I10 - Essential (primary) hypertension Status: Acute Assessment and Plan: Controlled with current medications (3) Aortic valve sclerosis: Code(s): I35.8 - Other nonrheumatic aortic valve disorders Status: Acute Assessment and Plan: An echocardiogram is in progress and the results will be followed up. Patient has been under care of supervisor elementary education aortic valve disease (4) ARI on CPAP: Code(s): G47.33 - Obstructive sleep apnea (adult) (pediatric); Z99.89 - Dependence on other enabling machines and devices Status: Acute Assessment and Plan: patient has been compliant with CPAP Plan I would suggest dual antiplatelets for 3 months thereafter he can not go down to aspirin alone and increase the dose of Lipitor to 40 mg a day. An EEG is also recommended. We should follow the results of echocardiogram and EEG. Consult date: 06/16/24 HPI: Romario Emerson is a 68 year old male with history of obstructive sleep apnea syndrome on CPAP, hypertension, hyperlipidemia migraine was seen for initial neurologic evaluation. Patient's and daughter and son-in-law were present at the time evaluation in the room. The patient was in usual state of health and he colon for dinner around after lunch time suddenly became confused. He thinks that this may have happened while the bill came but his did not realize that there was anything wrong until almost 2 hours later. They noted that he did not remember anything what was going on although he knew his family members and was able to walk around did not seem to have any paralysis or weakness in either side. This went on quite some time and his got concerned that he may be having a stroke and wanted to bring to the hospital however patient was resistant being brought here and eventually with the help of the family members the daughter was persuaded to allow the ambulance to be called and his called 911 and brought him to the hospital. In hospital he has had a CT scan of brain and CT angiogram head and neck. CT angio shows 33% narrowing of the left internal carotid artery and 19% on the right side. He was brought to the room and even at that time he did not remember many of the details or even coming to the hospital it appeared that he had a very short-term memory. This morning he gradually has improved and his daughter think that his more less back to normal self although his has some about it. The patient states himself that he had a similar spell about 10 years ago. That lasted for about 5 hours or so and he was seen by his family physician who ordered some testing but he did not come to the hospital at that time. He has not been on any specific medications since thereafter. Patient has a mild headache which is he rates as 2 on a scale of 10. However he has a long history of headaches that occur once or twice a month no history of major head trauma. No history of prior significant cardiac problems or stroke. Patient is compliant with the CPAP. 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 Review of Systems Review of Systems: All systems reviewed & are unremarkable except as noted in HPI and below PMFSH Past Medical History Medical History Mass of left forearm appears to be lipoma ARI on CPAP Pneumonia due to COVID-19 virus Aortic valve regurgitation Osteoarthritis of left knee Benign essential HTN Hyperlipidemia Thoracic aortic aneurysm (TAA) Eczema Dilated aortic root Surgical History Surgical History History of arthroplasty of left knee April 29, 2021 Bariatric surgery status History of arthroscopy of left knee medial meniscectomy S/P excision of lipoma multiple Hx of cholecystectomy Hx of appendectomy History of rotator cuff surgery Family History Family History Mother , Glaucoma before diagnosed before passing. Glaucoma Father Family history of cardiovascular disease Grandparent Family history of cardiovascular disease Grandparent Breast cancer Sibling Heart attack Social History Social History Social History: Smoking status: Never smoker Second hand tobacco smoke exposure: No Additional smoking assessment comments: PT DENIES ALL FORMS OF TOBACCO USE Alcohol intake: never Substance use: never Substance use type: does not use Do You Feel Safe in your Home?: Yes Lack of Transportation: No Lack of Food: Never True Current Housing: I Have Housing Concerned About Future Housing: No Difficulty Paying Gas/Electric Bills: No Difficulty Paying for Meds: No Currently Unemployed: No Education: High School Diploma/GED Difficulty w/ Childcare or Family Care: No Living arrangements: with family Occupation/Education: retired Gender identity (if verbalized by the patient): Male Sexual Orientation (if Verbalized by the Patient): Straight or Heterosexual Spiritual care concerns: No Meds Home Medications and Allergies Home Medications ?Medication ?Instructions ?Recorded ?Confirmed ?Type metoprolol tartrate 25 mg tablet 12.5 mg PO BID 11/30/20 06/15/24 History aspirin 81 mg chewable tablet 81 mg PO DAILY@0800 1 month #30 01/22/22 06/15/24 Rx (Children's Aspirin) tabs albuterol sulfate 2.5 mg/3 mL 2.5 mg (3 mL) inhalation Q4-6H PRN 01/21/23 06/15/24 Rx (0.083 %) solution for nebulization shortness of breath or wheezing #180 mL fluticasone fur. 200 mcg-umeclid 1 inh inhalation DAILY #60 ea 07/31/23 06/15/24 Rx 62.5 mcg-vilant 25 mcg inhalat.powder (Trelegy Ellipta) atorvastatin 10 mg tablet See Rx Instructions .Route 11/03/23 06/15/24 Rx .COMPLEX #100 tabs tamsulosin 0.4 mg capsule (Flomax) 0.4 mg PO DAILY 02/01/24 06/15/24 History omeprazole 20 mg capsule,delayed 20 mg PO DAILY laryngopharyngeal 03/23/24 06/15/24 Rx release reflux #90 caps losartan 50 mg-hydrochlorothiazide See Rx Instructions .Route 04/18/24 06/15/24 Rx 12.5 mg tablet .COMPLEX #100 tabs albuterol sulfate 90 mcg/actuation See Rx Instructions .Route 05/24/24 06/15/24 Rx aerosol inhaler .COMPLEX #51 grams Allergies Allergy/AdvReac Type Severity Reaction Status Date / Time ampicillin Allergy Mild RASH Verified 03/25/24 09:11 Penicillins Allergy Mild Rash Verified 03/25/24 09:11 tramadol Allergy Rash Verified 03/25/24 09:11 Vital Signs Vital Signs - 24 hr 06/15/24 18:21 06/15/24 18:21 06/15/24 18:45 Temperature 98.1 F Pulse Rate 97 96 96 Respiratory Rate 20 20 17 Blood Pressure 171/83 H 171/83 H Pulse Oximetry 98 97 96 Oxygen Delivery Room Air 06/15/24 18:59 06/15/24 19:01 06/15/24 19:17 Temperature Pulse Rate 94 95 99 Respiratory Rate 18 20 17 Blood Pressure 163/93 H 162/92 H 156/75 H Pulse Oximetry 95 94 93 Oxygen Delivery 06/15/24 20:30 06/15/24 20:55 06/15/24 21:52 Temperature 98.2 F Pulse Rate 87 96 Respiratory Rate 18 Blood Pressure 156/86 H Pulse Oximetry 96 Oxygen Delivery Room Air 06/15/24 22:30 06/16/24 00:00 06/16/24 00:31 Temperature Pulse Rate 81 85 78 Respiratory Rate Blood Pressure Pulse Oximetry 96 Oxygen Delivery Autopap 06/16/24 02:15 06/16/24 04:00 06/16/24 04:47 Temperature 97.8 F Pulse Rate 68 69 65 Respiratory Rate 18 Blood Pressure 109/61 Pulse Oximetry 94 95 Oxygen Delivery Autopap 06/16/24 08:00 06/16/24 08:19 06/16/24 10:06 Temperature Pulse Rate 62 Respiratory Rate Blood Pressure Pulse Oximetry 96 Oxygen Delivery Room Air Room Air 06/16/24 10:14 Temperature Pulse Rate 69 Respiratory Rate Blood Pressure Pulse Oximetry Oxygen Delivery Exam Const: General: cooperative, well developed and alert Orientation/consciousness: patient oriented x3 HENMT: Head: atraumatic Eyes: Alignment and Position: position normal Pupils: Equal, round and reactive pupils present EOM: EOMs intact bilaterally Neck: Neck: supple Resp: Effort & Inspection: normal respiratory effort Neuro: General: patient oriented x3 Cranial nerves: Yes CN's II-XII intact bilaterally, Yes facial sensation intact/muscles of mastication intact, Yes Equal, round and reactive pupils present, Yes facial symmetry and Yes Midline tongue present Cognition (Neuro): normal cognition Speech: normal speech Motor exam (neuro): 5/5 motor strength present throughout Sensory Exam: normal sensation Coordination: [id number] test normal and Normal rapid alternating movements of the distal upper extremity present (Neuro) Results Labs 06/15/24 18:00 06/15/24 18:05 Labs: Short CBC 06/15/24 Range/Units 18:00 WBC 7.5 (4.5-10.0) K/mm3 Hgb 16.4 (14.0-18.0) g/dL Hct 46.2 (42.0-52.0) % Plt Count 272 (150-375) k/mm3 BMP 06/15/24 06/15/24 18:00 18:05 Sodium 141 Potassium 3.9 Chloride 103 Carbon Dioxide 25 BUN 24 H Creatinine 1.21 1.40 Glucose 98 Calcium 9.6 Cardiac Enzymes 06/15/24 Range/Units 18:00 Troponin I < 0.012 (0.000-0.034) ng/mL Liver Function 06/15/24 Range/Units 18:00 Total Bilirubin 0.9 (0.2-1.3) mg/dL AST 38 (17-59) U/L ALT 54 H (6-50) U/L Alkaline Phosphatase 69 (38-126) U/L Albumin 4.7 (3.5-5.1) g/dL EXAMINATION: MR brain/brain stem wo/w con DATE: 06/16/2024 11:03 INDICATION: Global amnesia TECHNIQUE: Magnetic resonance imaging (MRI) of the brain and brainstem was performed without and with 20 mL ProHance intravenous contrast. Sequences included sagittal and axial T1-weighted SE, axial diffusion-weighted FS SE, axial 3D SWAN, axial T2-weighted FLAIR, and axial T2-weighted FSE. Postcontrast axial and coronal T1-weighted SE was obtained. Apparent diffusion coefficient (ADC) maps were created. COMPARISON: None. FINDINGS: There are no areas of restricted diffusion to suggest acute infarction. No intracranial hemorrhage or abnormal intracranial mass lesion. There are few scattered small foci of nonspecific increased T2-weighted signal intensity in the cerebral white matter, predominantly involving the deep and periventricular white matter which is within normal limits for age and likely sequela of chronic small vessel ischemic disease.. There are no intraparenchymal signal abnormalities seen on the other pulse sequences. The ventricles are symmetric and normal in size. There are no abnormal extra-axial fluid collections. Flow voids are seen in the cerebral arteries on the T2-weighted sequences consistent with their expected patency. Mild mucosal thickening the paranasal sinuses. Visualized orbits and soft tissues are unremarkable. There are no areas of abnormal enhancement on the post contrast images. IMPRESSION: 1. Normal aging brain with mild scattered white matter T2 hyperintensity consistent with chronic small vessel ischemic disease. No acute intracranial process or abnormally enhancing brain lesions. CTA brain carotid Ordering provider: Arin Stevens MD History: . Stroke symptoms . Comparison: None Technique: CT angiogram head and neck was performed following timed intravenous injection of contrast. Thin slice axial images and reformatted coronal images were obtained. Three dimensional reformatted images of the brain were also obtained using a [employer] workstation. DLP: [id number] mGy-cm FINDINGS: HEAD: --ANTERIOR AND MIDDLE CEREBRAL ARTERIES AND BRANCHES: Normal caliber and contour. --INTERNAL CAROTID ARTERIES: Mild atheromatous disease but no significant stenosis. No occlusion. --BASILAR ARTERY AND BRANCHES: Normal caliber and contour. No significantly calcified atheromatous disease. --POSTERIOR CEREBRAL ARTERIES: Normal caliber and contour --POSTERIOR COMMUNICATING ARTERIES: Not well visualized likely related to congenital absence or small size. --ANENone visualized.alized. --Please refer to report of CT head performed the same day.me day. --BONES AND SUPERFICIAL SOFT TIPlease refer to report of CT head performed the same day. e day. --PARANASAL SINUSES AND MASPlease refer to report of CT head done the same day. e day. NECK: --RIGHT CERVICAL CAROTID SYSTEM: Moderate atheromatous disease of the carotid bulb and proximal internal carotid artery.Percent stenosis per NASCET criteria Olya carotid dissection.ection. --LEFT CERVICAL CAROTID SYSTEM: Moderate atheromatous disease of the carotid bulb and proximal internal carotid artery.Percent stenosis per NASCET criteria Olya carotid dissection.ection. --VERTEBRAL ART ENormal caliber and contour.ontour. --VISUALIZED AORTIC ARCH AND BRANCHING VEMild atheromatous disease but no significant stenosis.enosis. --SOFT TINormal. Unremarkable --CERVICAL Age appropriate degenerative changes.h es. IMPRESSION: Moderate calcified atheromatous disease. Percent stenosis per NASCET criteria on the right is 19%, and on the left is 33%. No large vessel occlusion. Reviewed, dictated and finalized at location A. Imaging My impression: I reviewed the MRI of the brain and CT angiogram of the head and neck and agree with the radiologist's findings
[2024-06-16] MEDS: ACETAMINOPHEN 325 MG TABLET 650 MG PO (13:55)
[2024-06-16] MEDS: TAMSULOSIN HCL 0.4 MG CAPSULE PO (20:16)
[2024-06-16] MEDS: ATORVASTATIN 40 MG TABLET BY MOUTH (20:16)
[2024-06-17] VITALS: PULSE 62
[2024-06-17 01:22] VITALS: PULSE 61; O2SAT 95
[2024-06-17 04:00] VITALS: PULSE 62
[2024-06-17 05:39] LABS: Hematocrit 43.2 % (42.0-52.0); Hemoglobin 14.9 g/dL (14.0-18.0); Mean Corpuscular HGB Conc 34.5 g/dl (32-36); Mean Corpuscular Hemoglobin 31.7 pg (26-34); Mean Corpuscular Volume 91.9 fl (80-100); Mean Platelet Volume 8.3 fl (7.4-10.4); Platelet Count Result 219 k/mm3 (150-375); White Blood Count 6.1 K/mm3 (4.5-10.0)
[2024-06-17 05:58] LABS: Alanine Aminotransferase 40 U/L (6-50); Albumin Level 3.9 g/dL (3.5-5.1); Alkaline Phosphatase 59 U/L (38-126); Anion Gap 11 mmol/L (4-12); Aspartate Amino Transferase 28 U/L (17-59); Bilirubin,Total 0.8 mg/dL (0.2-1.3); Blood Urea Nitrogen 22 mg/dL (9-20); Calcium 8.6 mg/dL (8.4-10.2); Carbon Dioxide 22 mmol/L (22-30); Chloride 103 mmol/L (98-107); Cholesterol 130 mg/dL (0-200); Estimated CRCL calculation 71 ml/min; Estimated Glomerular Filt Rate > 60; Glucose 94 mg/dL (65-110); HDL Direct 34 mg/dL; Potassium 3.6 mmol/L (3.4-5.0); Sodium 136 mmol/L (137-145); Triglycerides 147 mg/dL (<150)
[2024-06-17 06:00] VITALS: BP 116/65; PULSE 58; RESP 16; TEMP 36.5; O2SAT 95
[2024-06-17 06:10] LABS: LDL Cholesterol Direct 69 mg/dL
[2024-06-17 08:00] VITALS: PULSE 61
[2024-06-17 08:57] VITALS: PULSE 76
[2024-06-17] MEDS: ASPIRIN 81 MG CHEWABLE TABLET PO (08:57)
[2024-06-17] MEDS: PANTOPRAZOLE 40 MG TABLET PO (08:57)
[2024-06-17] MEDS: LOSARTAN POTASSIUM 50 MG TABLET PO (08:57)
[2024-06-17] MEDS: CLOPIDOGREL BISULFATE 75 MG TABLET PO (08:57)
[2024-06-17] MEDS: hydroCHLOROthiazide 12.5 MG CAPSULE PO (08:57)
[2024-06-17] MEDS: METOPROLOL TARTRATE 12.5 MG TABLET PO (08:57)
--- NOTE | 2024-06-17 11:45 | P.DS_ITS ---
DS: Admitting Diagnosis Discharge Date 06/17/2024 Admitting Diagnosis Transient global amnesia HTN ARI DS: Discharge Diagnosis Discharge Diagnosis (1) Transient global amnesia: Code(s): G45.4 - Transient global amnesia Status: Acute (2) Benign essential HTN: Code(s): I10 - Essential (primary) hypertension Status: Acute (3) ARI (obstructive sleep apnea): Code(s): G47.33 - Obstructive sleep apnea (adult) (pediatric) Status: Acute DS: Summary Hospital Course Reason for hospitalization: Transient global amnesia HTN ARI Hospital Course: 68 year old male with past medical history of ARI on CPAP, HTN, HLD, thoracic aortic aneurysm, and history of amnesia presents to the hospital for anterograde amnesia. Previously had a TGA event about 10 years ago that lasted approximately 4-5 hours. No seizure history. Labs unremarkable. Patient evaluated by neurology. Differential diagnosis includes transient ischemic attack or partial complex seizures. Head CT showing no acute intracranial hemorrhage or suspicious mass effect. Head/neck CTA showing moderate calcified atheromatous disease with 19% right and 33% left stenosis. No large vessel occlusion. MRI showing normal aging brain with mild scattered white matter T2 hyperintensity consistent with chronic small vessel ischemic disease. No acute intracranial process or abnormally enhancing brain lesions. Echo showing LVEF 60-65% with grade I diastolic dysfunction and negative bubble. Patient started on aspirin, plavix and home atorvastatin increased to 40 mg daily. EEG was obtained however has not been officially read prior to discharge. Prior to discharge discussed patient with neurology Dr. Joe. Per Dr. Joe no antiseizure medication is recommended at this time. Patient given neurology office information, but follow up is not necessary unless symptoms recur. Patient has no complaints at time of discharge denying chest pain, palpitations, shortness a breath, nausea/vomiting, abdominal pain, dizziness/lightheadedness, weakness/tingling/numbness. Patient discharged home with family in a stable condition. He is to follow up with his PCP in 1 week and neurology as needed for symptom recurrence. Status at Discharge Functional status at discharge: independent ambulation Time Spent with Patient Time attestation: Total time spent providing and/or coordinating discharge services: Time spent: Greater than 30 minutes Exam Narrative: AF HR 76 RR 16 Spo2 95 BP 116/65 General: male in no acute respiratory distress who is nontoxic appearing, sitting in the chair HEENT: Normocephalic. Atraumatic. Extraocular movement intact. Sclera clear and anicteric. No facial asymmetry. Chest: Lungs are clear to auscultation bilaterally. CV: Heart was regular rate and rhythm. Abd: Abdomen was soft. Nontender. Nondistended. Positive bowel sounds. Ext: No clubbing, cyanosis, or edema. DP pulses bilaterally. Neuro: Patient is alert and oriented x4. Strength is 5/5 in both upper and lower extremities with pushes/pulls. No upper extremity drift. Able to name 5 colors and animals. Cranial nerves 2-12 are intact. Speech is clear. DS: Data Data Completed and Pending Completed studies during hospitalization: Head CT Head/neck CTA Brain MRI Chest XR Labs on day of discharge: Labs from last 24 hours 06/17/24 05:19 WBC 6.1 RBC 4.70 Hgb 14.9 Hct 43.2 MCV 91.9 MCH 31.7 MCHC 34.5 RDW 13.0 Plt Count 219 MPV 8.3 Sodium 136 L Potassium 3.6 Chloride 103 Carbon Dioxide 22 Anion Gap 11 BUN 22 H Creatinine 1.00 Estim Creat Clear Calc 71 Estimated GFR > 60 Glucose 94 Calcium 8.6 Total Bilirubin 0.8 AST 28 ALT 40 Alkaline Phosphatase 59 Total Protein 7.0 Albumin 3.9 Triglycerides 147 Cholesterol 130 LDL Cholesterol Direct 69 HDL Direct 34 Discharge Plan Discharge Attending physician on discharge: Christopher Baxter Consulting providers: Dakota Burrows Discharging Clinician: Sonia Chaney Anticipated Discharge Date/Time: 06/17/24 11:40 Patient Disposition: Home, Self-Care Activity: as tolerated Diet: as tolerated and heart healthy Discharge Instructions: Discharge disposition: Patient admitted for transient global amnesia Evaluated by neurology during assessment Take all medications as prescribed even if feeling better Aspirin 81 mg daily Plavix 75 mg daily Atorvastatin dose increased to 40 mg daily Attached is information on these medications Strict bleeding precautions since you are being started on Plavix including shaving with an electric razor, holding pressure for greater than 20 minutes for injury, protection of had with any falls, etc. Eat well balanced meals and stay hydrated Follow-up with neurology if symptoms recur, attached is office information Monitor blood pressures Take caution while standing, rising, or moving Change positions slowly taking a break between each position change If you standing feel dizzy sit back down and take a break Encouraged to continue with yearly vaccinations Return to the emergency department if he developed sudden shortness of breath, chest pain, nausea, vomiting, upset stomach or intractable diarrhea Return to the emergency department if you develop fever greater than 101.5 Follow-up with the primary care physician within 1-2 weeks Thank you for [facility] for your healthcare needs Patient Instructions: Aspirin (By mouth), Atorvastatin (By mouth), Clopidogrel (By mouth), Transient Ischemic Attack (DC), Transient Global Amnesia (GEN) Patient Language: Maori Stand Alone Forms: General Discharge Information Follow-up/Referrals: Demetri Bucio MD [Primary Care Provider] - 1 Week Candida Joe MD [Physician] - Call for Appointment Discharge Medications: New atorvastatin 40 mg Tablet 40 mg BYMOUTH HS Qty: 30 0RF clopidogrel 75 mg Tablet 75 mg PO QAM Qty: 30 0RF Continued tamsulosin [Flomax] 0.4 mg capsule 0.4 mg PO DAILY metoprolol tartrate 25 mg tablet 12.5 mg PO BID Trelegy Ellipta 200-62.5-25 mcg blister with device 1 inh inhalation DAILY Qty: 60 11RF Rx Instructions: Rinse mouth and spit after each use aspirin [Children's Aspirin] 81 mg Tablet,Chewable 81 mg PO DAILY@0800 30 Days Qty: 30 0RF albuterol sulfate 2.5 mg /3 mL (0.083 %) solution for nebulization 2.5 mg inhalation Q4-6H PRN (Reason: shortness of breath or wheezing) Qty: 180 3RF losartan-hydrochlorothiazide 50-12.5 mg tablet See Rx Instructions .ROUTE .COMPLEX Qty: 100 0RF Dose Instruction: TAKE 1 TABLET BY MOUTH IN THE MORNING Rx Instructions: TAKE 1 TABLET BY MOUTH IN THE MORNING albuterol sulfate 90 mcg/actuation HFA aerosol inhaler See Rx Instructions .ROUTE .COMPLEX Qty: 51 2RF Dose Instruction: USE 1 TO 2 INHALATIONS BY MOUTH EVERY 4 TO 6 HOURS NEEDED FOR SHORTNESS OF BREATH OR WHEEZING Rx Instructions: USE 1 TO 2 INHALATIONS BY MOUTH EVERY 4 TO 6 HOURS NEEDED FOR SHORTNESS OF BREATH OR WHEEZING Held omeprazole 20 mg capsule,delayed release(DR/EC) 20 mg PO DAILY Qty: 90 1RF Hold Instructions: Resume on 07/13/24. Hold until follow up with PCP Rx Instructions: take 1 capsule daily on empty stomach and wait 15-30 minutes to eat or drink Discontinued atorvastatin 10 mg tablet See Rx Instructions .ROUTE .COMPLEX Qty: 100 2RF Dose Instruction: TAKE 1 TABLET BY MOUTH DAILY Rx Instructions: TAKE 1 TABLET BY MOUTH DAILY Date of admission: 06/16/24 07:28 Primary Care Provider: Demetri Bucio Admitting Provider: Jerrica Klein Attending physician on admission: Sonia Chaney Condition: Stable Quality VTE Prophylaxis VTE prophylaxis: pharmacologic ordered Hospitalist MIPS Heart Failure (Exclusion) Patient has history of Heart Transplant or Left Ventricular Assistive Device?: No IF YES, STOP HERE Heart Failure (Qualifier) Patient has current or prior documentation of LVEF less than or equal to 40%, or mod/servere depressed LVSF?: No IF NO, STOP HERE
--- NOTE | 2024-06-19 13:32 | P.NEURO_ITS ---
Neurology EEG Report General Information Date of Study: 06/17/24 TEST EEG DIAGNOSIS Rule out the possibility of transient global amnesia with seizure. CONDITION OF RECORDING Awake, drowsy and asleep. EEG NUMBER 25-79 CLINICAL HISTORY Patient reports he had an episode about 2 days ago when he could not remember events for over half of the day. Family noted no slurring of the speech or him being unconscious. He feels fine at the time of EEG but did mention that he had similar episode about 10 years ago. EEG DESCRIPTION Basic resting occipital frequency consists of low to medium voltage 8 to 10 hertz per 2nd alpha admixed with low-voltage beta activity. Good melonie posterior gradient noted. Low-voltage beta activity seen diffusely admixed with waxing and waning posterior alpha rhythm during drowsiness evolving into bilater al symmetrical sleep spindles. Hyperventilation not done. Photic stimulation not done. Non paroxysmal. Nonfocal. Nonlateralizing. IMPRESSION Normal EEG, it does not rule out the possibility of localization-related epilepsy such as partial seizure clinical correlation recommended if the episodes recur then repeat EEG with sleep deprivation is recommended.
[2024-06-22 11:15] LABS: Glucose Point of Care 90 mg/dl (65-105)
== END 2024-06-17 12:29 | disposition home or self-care (01) | DRG 72 ==
LOC: ANHED 19:25 → ANH3MED 20:13
PROVIDERS: Admitting Provider General Practice; Emergency Provider Emergency Medicine; PCP Family Medicine; Visit Provider Student in an Organized Health Care Education/Training Program
DX: G45.4 Transient global amnesia (principal); I10 Essential (primary) hypertension; I71.20 Thoracic aortic aneurysm, without rupture, unspecified; I35.1 Nonrheumatic aortic (valve) insufficiency; E78.5 Hyperlipidemia, unspecified; M17.12 Unilateral primary osteoarthritis, left knee; G47.33 Obstructive sleep apnea (adult) (pediatric); Z79.82 Long term (current) use of aspirin
CPT/HCPCS: 36415; 70450; 70496; 70498; 70553; 71045; 80053; 80061; 82565; 82948; 84443; 84484; 85025; 85027; 85610; 85730; 93005; 93306; 94640; 95816; 96375; 99291; A9270; A9579; G0378; Q9967